=== PATIENT | female | born 1990 | race Caucasian/White ===

== ENCOUNTER 2020-11-23 08:20 | Emergency (ER) | payer OTHER, SELFPAY ==
--- NOTE | ~2020-11-23 | XR_ITS ---
EXAMINATION: XR finger 1st RT min 2V DATE: 11/23/2020 08:44 INDICATION: Posttraumatic pain and subungual hematoma to the right thumb TECHNIQUE: Dorsal palmar, lateral and 2 oblique views of the right first digit were obtained COMPARISON: None FINDINGS: Alignment is normal. No fracture. Joint spaces are normal. Soft tissues are unremarkable. IMPRESSION: 1. Negative right first digit radiographs. Reviewed, dictated and finalized at location A.
[2020-11-23 08:31] VITALS: BP 113/77; PULSE 100; RESP 16; TEMP 36.8; O2SAT 100
--- NOTE | 2020-11-23 09:16 | ED.UPPEXIN ---
HPI - Extremity Injury (Upper) General Chief Complaint: Extremity Injury, Upper Stated Complaint: Finger Injury Time Seen by Provider: 11/23/20 08:43 Source: patient and RN notes reviewed Mode of arrival: ambulatory Limitations: no limitations History of Present Illness HPI narrative: Patient presents today complaining of injury to the right forearm. 3 days ago she slammed her thumb in a car door. Reports some tingling to the tip of the finger. She currently rates her pain 7/10. She has attempted to drain the subungual hematoma on her found several times at home with varying success. Patient is currently breast-feeding MD complaint: injury to: right and finger Related Data Home Medications Medication Instructions Recorded Confirmed levonorgestrel [Mirena] 1 insert INTRAUTERINE ONCE 11/23/20 11/23/20 Allergies Allergy/AdvReac Type Severity Reaction Status Date / Time Penicillins Allergy Severe Anaphylactic Verified 11/23/20 08:58 Shock morphine AdvReac Intermediate Chills Verified 11/23/20 08:58 Review of Systems Review of Systems: CONSTITUTIONAL: Denies body aches, fever, chills, or sweats. EYES: Denies visual changes, redness, or discharge. ENT: Denies rhinorrhea, congestion, sore throat, or otalgia. CARDIOVASCULAR: Denies chest pain, palpitations, or edema. RESPIRATORY: Denies cough or dyspnea. GASTROINTESTINAL: Denies abdominal pain, nausea, vomiting, or diarrhea. GENITOURINARY: Denies dysuria or hematuria. SKIN: Denies rash, itching, or wounds. MUSCULOSKELETAL: Denies back pain, or myalgia. + Right thumb injury NEUROLOGIC: Denies headache, numbness, tingling, or weakness. PSYCH: Denies depression or anxiety. PMFSH Comments At time of signature, I have reviewed and agree with nursing past medical, surgical, social and family history unless otherwise noted. Please see nursing chart for further information. There is no relevant family history pertinent to the presenting complaint Exam Narrative: GENERAL: Well-appearing, well-nourished, and in no acute distress. HEAD: Normocephalic, atraumatic. EYES: EOMI. No redness or drainage. Conjunctivae normal. ENT: Mucous membranes pink and moist. NECK: Normal AROM. CHEST: No respiratory distress. EXTREMITIES: Right thumb: Tenderness to the IPJ extending distally. Subungual hematoma taking up most of the thumb nail. Some erythema and mild edema at the cuticle. Decreased range of motion of the IPJ due to pain. Distal sensation intact. Capillary refill normal. SKIN: Warm, dry, no rash. Capillary refill normal. Normal skin turgor. NEURO: No focal deficits. Alert and oriented x3. Gait steady. PSYCH: Normal affect. No signs of depression or anxiety. Course Vital Signs Vital signs: Vital Signs Temperature 98.2 F 11/23/20 08:31 Pulse Rate 100 11/23/20 08:31 Respiratory Rate 16 11/23/20 08:31 Blood Pressure 113/77 11/23/20 08:31 Pulse Oximetry 100 11/23/20 08:31 Temperature 98.2 F 11/23/20 08:31 Pulse Rate 100 11/23/20 08:31 Respiratory Rate 16 11/23/20 08:31 Blood Pressure 113/77 11/23/20 08:31 Pulse Oximetry 100 11/23/20 08:31 Reviewed Procedures Nail Trephination Nail Trephination #1: Nail Trephination Date: 11/23/20 Nail Trephination Time: 09:10 Time out: No Location (finger): right and thumb Sterile prep: chlorhexidine Method of drainage: nail cautery Procedure successful: Yes Patient tolerated procedure: well Nail Trephination Comment: Dressed with Band-Aid MDM - Extremity Injury (Upper) Differential Diagnosis Differential diagnosis: Likely other (Finger fracture, finger contusion, subungual hematoma) Imaging Data Radiologist's impression: ITS Impressions Finger X-Ray 11/23/20 08:47 IMPRESSION: 1. Negative right first digit radiographs. Critical Care Time Critical Care Time Critical Care Time: No Discharge Plan Discharge Cli
== END 2020-11-23 09:25 | disposition home or self-care (01) ==
PROVIDERS: Emergency Provider Nurse Practitioner
DX: S60.011A Contusion of right thumb without damage to nail, initial encounter (principal); W23.0XXA Caught, crushed, jammed, or pinched between moving objects, initial encounter
CPT/HCPCS: 11740; 73140; 99213; G0463

== ENCOUNTER 2021-06-04 14:45 | Emergency (ER) | payer OTHER, SELFPAY ==
[2021-06-04 14:49] VITALS: BP 114/61; PULSE 100; RESP 16; TEMP 36.8; O2SAT 99
[2021-06-04 14:59] VITALS: BP 114/61; PULSE 100; RESP 16; TEMP 36.8; O2SAT 99
--- NOTE | 2021-06-04 14:59 | ED.SKABFB ---
HPI - Skin/Abscess/Foreign Bdy General Chief complaint: Skin/Abscess/Foreign Body Stated complaint: mastitis Time Seen by Provider: 06/04/21 14:50 Source: patient and RN notes reviewed History of Present Illness HPI narrative: Patient is a 31-year-old female who presents the urgent care with complaints of right breast pain with red streaking. Patient states that she weaned her child off the breast approximately 10 days ago. Patient does not have any intentions on breast-feeding anymore. Patient states she has felt increased fatigue over the last day or so with symptoms starting approximately 3 days ago. Patient states that she has had clogged ducts before and was unable to work them out . Patient has taken Tylenol. Denies of any known fevers. No other acute complaints. No acute distress noted. Patient aware of the plan of care. Some parts of this dictation were generated by voice recognition software and may contain typographical and/or grammatical inaccuracies. Related Data Home Medications Medication Instructions Recorded Confirmed etonogestrel-ethinyl estradiol 1 vag ring VAGINAL DIRECTED 06/04/21 06/04/21 [EluRyng] Allergies Allergy/AdvReac Type Severity Reaction Status Date / Time Penicillins Allergy Severe Anaphylactic Verified 11/23/20 08:58 Shock morphine AdvReac Intermediate Chills Verified 11/23/20 08:58 Review of Systems Review of Systems: CONSTITUTIONAL: Denies fever, chills, or sweats. EYES: Denies visual changes, redness, or discharge. ENT: Denies rhinorrhea, congestion, sore throat, or otalgia. CARDIOVASCULAR: Denies chest pain, palpitations, or edema. RESPIRATORY: Denies cough or dyspnea. GASTROINTESTINAL: Denies abdominal pain, nausea, vomiting, or diarrhea. GENITOURINARY: Denies dysuria or hematuria. SKIN: Reports of redness and pain to the right breast MUSCULOSKELETAL: Denies back pain, joint pain, or myalgia. NEUROLOGIC: Denies headache, numbness, or weakness. All other systems reviewed are negative, except as documented in HPI. PMFSH Comments At the time of my signature, I reviewed and agree with the nursing past medical, surgical, social, and family history. There is no relevant family history pertinent to the patient complaint. Exam Narrative: GENERAL: This is a well-nourished, well-developed patient, in no apparent distress. HEAD: normocephalic, atraumatic. EYES: PERRL. Sclera clear/white. Vision is grossly intact. EARS: External ears normal NOSE: External nose normal with no obvious nasal discharge, nares without redness, no rhinorrhea. THROAT: Mucous membranes moist NECK: Neck supple CARDIOVASCULAR: Regular rate and rhythm without murmurs, gallops, or rubs. RESPIRATORY: Clear to auscultation. Breath sounds equal bilaterally. No wheezes, rales, or rhonchi. GASTROINTESTINAL: Abdomen soft, non-tender, nondistended. Bowel sounds are active. No hepato-splenomegaly, or palpable masses. No guarding. SKIN: 2 cm linear erythemic nonraised streaking of the right breast at approximately 3:00 BREAST: Mild to moderate tenderness between 3:00 and 6:00 of the right breast without notable nodule NEURO: awake, alert, and oriented to person, place and time. There were no obvious focal neurologic abnormalities. EXTREMITIES: No clubbing, cyanosis, or edema. Course Course Level of Care: Express Care Visit Vital Signs Vital signs: Vital Signs Temperature 98.3 F 06/04/21 14:49 Pulse Rate 100 06/04/21 14:49 Respiratory Rate 16 06/04/21 14:49 Blood Pressure 114/61 06/04/21 14:49 Pulse Oximetry 99 06/04/21 14:49 Temperature 98.3 F 06/04/21 14:59 Pulse Rate 100 06/04/21 14:59 Respiratory Rate 16 06/04/21 14:59 Blood Pressure 114/61 06/04/21 14:59 Pulse Oximetry 99 06/04/21 14:59 Reviewed MDM - Skin/Abscess/Foreign Bdy MDM Narrative Medical decision making narrative: Advised patient to continue manipulation of the breast and warm compress/ice packs intermi
== END 2021-06-04 15:34 | disposition home or self-care (01) ==
PROVIDERS: Emergency Provider Nurse Practitioner Family
DX: N64.4 Mastodynia (principal)
CPT/HCPCS: 99213; G0463

== ENCOUNTER 2021-08-23 10:19 | Emergency (ER) | payer OTHER, SELFPAY ==
--- NOTE | 2021-08-23 10:24 | ED.HEATRA ---
HPI - Head Injury General Stated complaint: Head bump Time Seen by Provider: 08/23/21 10:37 Source: patient Mode of arrival: ambulatory Limitations: no limitations History of Present Illness HPI Narrative: 31-year-old female presents with concern for head injury. 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 She reports she has a bruise to her right forehead and to her right elbow. She denies any loss of consciousness. Denies vomiting. She reports she had some slight nausea and headache. She reports however she did have a headache this morning. Complaint: head injury Related Data Home Medications Medication Instructions Recorded Confirmed No Home Medications 08/23/21 08/23/21 Allergies Allergy/AdvReac Type Severity Reaction Status Date / Time Penicillins Allergy Severe Anaphylactic Verified 11/23/20 08:58 Shock morphine AdvReac Intermediate Chills Verified 11/23/20 08:58 Review of Systems Review of Systems: CONSTITUTIONAL: Denies malaise, chills, sweats, or fever. EYES: Denies visual changes GASTROINTESTINAL: Reports mild nausea. Denies vomiting SKIN: Reports bruising to the right forehead and right elbow MUSCULOSKELETAL: Denies muscle skeletal pain NEUROLOGIC: Denies numbness, weakness, or headache. All systems reviewed & are unremarkable except as noted in HPI and below PMFSH Comments At time of signature, agree with nursing past medical, surgical, social and family history. There is no relevant family history pertinent to the presenting complaint Exam Narrative: GENERAL: Well-appearing, well-nourished, and in no acute distress. HEAD: Normocephalic, no sign of open or depressed skull fracture, no sign of basilar skull fracture/raccoon eyes or rader signs. EYES: PERRLA, sclera clear, and EOMI. No nystagmus. ENT: Nares clear. Mucous membranes moist. TM pearly oreilly with sharp light reflex bilaterally; no tragal tenderness. No otorrhea or rhinorrhea noted NECK: Supple. CHEST: No respiratory distress. Speaks in full sentences. HEART: Regular rate and rhythm. EXTREMITIES: Right upper extremity has grossly normal range of motion, no edema noted. SKIN: Warm, dry, no visible rash. Ecchymosis noted to the right elbow, small hematoma noted to the right forehead NEURO: Alert and oriented x3. No focal deficits. Cranial nerves II through XII grossly intact PSYCH: Normal mood and affect Course Course Emergency Course: Patient is aware of diagnosis, understands and agrees to treatment plan. Anticipatory guidance given. Patient agrees to follow-up as directed and is aware of reasons to seek care at the emergency department. Portions of this record may have been created with voice recognition software Level of Care: Express Care Visit Vital Signs Vital signs: Reviewed. MDM - Head Injury MDM Narrative Medical decision making narrative: CCHR score: Signs of open or depressed skull fracture: No Rader sign/raccoon eyes: No 2 or more episodes of vomiting: No Age 65 years +: No Amnesia for events occurring 30 minutes prior to trauma: No Dangerous mechanism of injury: No Exam findings show no acute concerns; patient is alert and oriented with normal neurological exam. Patient given reasons to go to the emergency department. Patient is appropriate for outpatient treatment and follow-up. Critical Care Time Critical Care Time Critical Care Time: No Discharge Plan Discharge Clinical Impression: Closed head injury Patient Disposition: Home, Self-Care Condition: Stable Instructions: Head Injury (ED) Additional Instructions: Follow up with your primary care doctor within 48-72 hours. Rest. Take Acetaminophen (Tylenol) every 4-6 hours, as needed, for pain. Often individuals develop a headache associated with nausea in the days/hours after a head injury. This is called a concussion
[2021-08-23 10:27] VITALS: BP 118/87; PULSE 87; RESP 16; TEMP 36.6; O2SAT 100
== END 2021-08-23 10:51 | disposition home or self-care (01) ==
PROVIDERS: Emergency Provider Nurse Practitioner; PCP Internal Medicine
DX: S09.90XA Unspecified injury of head, initial encounter (principal); W22.8XXA Striking against or struck by other objects, initial encounter; Y99.0 Civilian activity done for income or pay
CPT/HCPCS: 99213; G0463

== ENCOUNTER 2021-09-16 14:43 | Emergency (ER) | payer OTHER, SELFPAY ==
[2021-09-16 14:52] VITALS: BP 117/77; PULSE 95; RESP 16; TEMP 36.7; O2SAT 100
--- NOTE | 2021-09-16 15:44 | ED.GENADULT ---
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 She reports that she has this discharge from he nipple usually the week before her menses and has noted it the past few days and wants a culture sent of discharge. Patient has had mammogram and ultrasound which she reports are negative. Has inversion of nipple on right breast, has had small cyst excision right breast years ago. MD complaint: nipple discharge Onset (ago): month(s) (2) Location: chest (right breast) Severity scale (1-10): 3 Quality: aching Pain Consistency: intermittent Treatments prior to arrival: other (has had right breat mammogram and ultrasound) Related Data Home Medications Medication Instructions Recorded Confirmed etonogestrel 0.12 mg-ethinyl vag ring vaginal 09/16/21 estradiol 0.015 mg/24 hr vaginal ring ([facility]) Allergies Allergy/AdvReac Type Severity Reaction Status Date / Time Penicillins Allergy Severe Anaphylactic Verified 09/16/21 15:24 Shock morphine AdvReac Intermediate Chills Verified 09/16/21 15:24 Review of Systems Review of Systems: CONSTITUTIONAL: Denies fever, chills, or sweats. EYES: Denies visual changes, redness, or discharge. ENT: Denies rhinorrhea, congestion, sore throat, or otalgia. CARDIOVASCULAR: Denies chest pain, palpitations, or edema. RESPIRATORY: Denies cough or dyspnea. GASTROINTESTINAL: Denies abdominal pain, nausea, vomiting, or diarrhea. GENITOURINARY: Denies dysuria or hematuria. SKIN: Denies rash or itching.positive for some drainage noted from right nipple MUSCULOSKELETAL: Denies back pain, joint pain, or myalgia. NEUROLOGIC: Denies headache, numbness, or weakness. PSYCHIATRIC: Denies anxiety or depression. All systems reviewed & are unremarkable except as noted in HPI and below [facility] Past Medical History Medical History (Updated 09/17/21 @ 21:02 by Tiesha Carvalho NP) Cyst, breast solitary outside of breast next to nipple Surgical History Surgical History (Updated 09/17/21 @ 21:05 by Tiesha Carvalho NP) History of dilatation and curettage History of nasal surgery Turbinectomy History of tonsillectomy and adenoidectomy Social History Social History (Updated 09/17/21 @ 21:02 by Tiesha Carvalho NP) Smoking status: Never smoker Alcohol intake: current Alcohol use details: rare social Substance use: never Substance use type: does not use Living arrangements: with family Gender identity (if verbalized by the patient): Female Comments At time of signature, agree with nursing past medical, surgical, social and family history. There is no relevant family history pertinent to the presenting complaint Exam Narrative: GENERAL: Well-appearing, well-nourished, and in no acute distress. HEAD: Normocephalic, atraumatic. EYES: PERRLA and EOMI. ENT: Nares clear, no rhinorrhea or epistaxis. Mucous membranes moist.TM's normal with good light reflex, throat pink with no lesions no tonsils present NECK: Supple.no lymphadenopathy CHEST: Clear to auscultation. No respiratory distress.SAO2 100% on room air HEART: Regular rate and rhythm. No murmur heard. Normal peripheral pulses. ABDOMEN: Soft, nontender, nondistended, normal active bowel sounds. EXTREMITIES: Normal range of motion. No edema. SKIN: Warm, dry, no rash. drainage noted from right breast culture obtained and sent for analysis, breast is soft but palpable fibrous tissue, nipple is inverted, no redness or warmt
== END 2021-09-16 16:10 | disposition home or self-care (01) ==
PROVIDERS: Emergency Provider Registered Nurse; PCP Internal Medicine
DX: N64.52 Nipple discharge (principal)
CPT/HCPCS: 87070; 87205; 99213; G0463

== ENCOUNTER 2023-09-15 14:42 | Emergency (ER) | payer OTHER, SELFPAY ==
[2023-09-15 15:00] VITALS: BP 123/80; PULSE 84; RESP 18; TEMP 37; O2SAT 100
--- NOTE | 2023-09-15 15:45 | ED.SKABFB ---
HPI - Skin/Abscess/Foreign Bdy General Chief complaint: Skin/Abscess/Foreign Body Stated complaint: insect bite w/red ring back of left thigh Time Seen by Provider: 09/15/23 15:30 Source: patient, RN notes reviewed and old records reviewed Mode of arrival: ambulatory Limitations: no limitations History of Present Illness HPI narrative: 33 year old female who presents to [facility] with complaints of having a insect bite to her left upper thigh with noted ring around center redness. Patient reports that she noted some itching to her left upper posterior thigh Thursday evening and then she noted red bite with surrounding ring around lesion and she has noted also that she has left groin lymph node swelling and tender also. MD complaint: insect bite/sting (with surrounding ring) Onset (ago): day(s) (3) Location: LLE (posterior thigh) Severity scale (1-10): 3 Treatments prior to arrival: none Related Data Allergies Allergy/AdvReac Type Severity Reaction Status Date / Time Penicillins Allergy Severe Anaphylactic Verified 09/16/21 15:24 Shock nickel Allergy Unknown Verified 09/15/23 15:02 morphine AdvReac Intermediate Chills Verified 09/16/21 15:24 Review of Systems Review of Systems: CONSTITUTIONAL: Denies fever, chills, or sweats. CARDIOVASCULAR: Denies chest pain, palpitations, or edema. RESPIRATORY: Denies cough or dyspnea. SKIN: Reports bite to posterior left thigh with surrounding primer press operator colored ring, inflamed tender left groin lymph node MUSCULOSKELETAL: Denies joint pain or myalgia. NEUROLOGIC: Denies headache, numbness, or weakness. All systems reviewed & are unremarkable except as noted in HPI and below PMFSH Past Medical History Medical History Cyst, breast solitary outside of breast next to nipple Surgical History Surgical History History of dilatation and curettage History of nasal surgery Turbinectomy History of tonsillectomy and adenoidectomy Social History Social History Smoking status: Never smoker Alcohol intake: current Alcohol use details: rare social Substance use: never Substance use type: does not use Living arrangements: with family Gender identity (if verbalized by the patient): Female Comments At time of signature, agree with nursing past medical, surgical, social and family history. There is no relevant family history pertinent to the presenting complaint Exam Narrative: GENERAL: Well-appearing, well-nourished, and in no acute distress. HEAD: Normocephalic, atraumatic. EYES: PERRLA, conjunctivae clear, and EOMI. ENT: Mucous membranes moist. Oropharynx without edema, erythema or lesions. NECK: Supple. No lymphadenopathy, left groin swollen tender lymph node CHEST: Clear to auscultation. No respiratory distress. HEART: Regular rate and rhythm. SKIN: Warm, dry.? circular red raised center lesion 0.5 cm diameter with 2cm primer press operator pinkish circular surrounding lesion, no drainage or any acute warmth of area. NEURO:? Alert and oriented x3. PSYCH: Normal mood and affect Course Course Emergency Course: Patient is aware of diagnosis, understands and agrees to treatment plan.? Anticipatory guidance given.? Patient agrees to follow-up as directed and is aware of reasons to seek care at the emergency department. Portions of this record may have been created with voice recognition software Level of Care: Express Care Visit Vital Signs Vital signs: Vital Signs Temperature 37.0 C 09/15/23 15:00 Pulse Rate 84 09/15/23 15:00 Respiratory Rate 18 09/15/23 15:00 Blood Pressure 123/80 09/15/23 15:00 Pulse Oximetry 100 09/15/23 15:00 Temperature 37.0 C 09/15/23 15:00 Pulse Rate 84 09/15/23 15:00 Respiratory Rate 18 09/15/23 15:00 Blood Pressure 123/80 0
== END 2023-09-15 16:08 | disposition home or self-care (01) ==
PROVIDERS: Emergency Provider Registered Nurse; PCP Internal Medicine
DX: S70.362A Insect bite (nonvenomous), left thigh, initial encounter (principal); W57.XXXA Bitten or stung by nonvenomous insect and other nonvenomous arthropods, initial encounter; R59.9 Enlarged lymph nodes, unspecified
CPT/HCPCS: 99213; G0463

== ENCOUNTER 2024-01-21 09:44 | Emergency (ER) | payer OTHER, SELFPAY ==
--- OUTSIDE RECORDS SUMMARY | 2024-01-21 09:46 | XMS_ITS ---
Author Organization [facility] Address [address] [place] [address] Care Team Providers Care Imaging Scheduler Name Role Phone Jimmie Ardian Primary Care Provider Bautista See Unavailable [phone] Allergies Allergen (clinical drug ingredient) Drug/Non Drug Allergy documented on EMR Reaction Allergy Type Onset Date Status morphine Morphine hives Drug Allergy Active Penicillin anaphylaxis Drug Allergy Acti ve REASON FOR VISIT Recurrent nausea, cramping, and diarrhea after with ingestion of milk consistently after tick bite.Has tried lactose-free products without benefit. Noted similar issues with ingestion of mammalian meats. Recent alpha-gal and milk IgE level was elevated., [facility] follow-up; continues allergy avoidance,on meds, and considering SCIT, Reported lip swelling after ingestion of PCN at 6 months. Has avoided since. Medications Medication SIG (Take, Route, Frequency, Duration) Notes Start Date End Date Status Nasal Washes N/A as directed intranasally Active Fluticasone Propionate 50 MCG/ACT 2 sprays in each nostril Nasally Twice a day for 30 days Active Cetirizine HCl 10 MG 1 tablet Orally Onc e a day for 30 days Active Auvi-Q 0.3 MG/0.3ML as directed Injectio n as needed for 30 days Active Social History Tobacco Use: Social History Observation Description Date Details (start date - stop date) Former Smoker NA - NA Tobacco Control (Standard) Question Answer Notes Tobacco use: Former smoker Vital Signs Blood pressure systolic 126 mm Hg 11/09/19 24 Blood pressure diastolic 82 mm Hg 09/30/2 024 Height 60 in 11/09/2023 Weight 125.6 lbs 11/09/2023 BMI 24.53 kg/m2 11/09/2023 Oximetry 100 % 11/09/2023 Encounters Encounter Location Date Provider Diagnosis [facility] [address] [place] [address] 11/09/2023 Bautista Campbell Allergic rhinitis du e to pollen J30.1 ; 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 Accordingly, we have introduced a new, aggressive medication regimen, discussed nasal washes and allergy-specific avoidance measures. We also discussed adjunctive therapies including subcutaneous, specific allergen immunotherapy as relates to the treatment and prevention of atopic disease. She is currently considering the risks, benefits and alternatives to this care. Risks: bleeding, infection, allergic reaction, anaphylaxis; Benefits: reduced need for medications, improved symptoms, disease modification. Alternatives: watch/wait, change medication regimen, improve allergy avoidance measures. 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 She reports occasional flat, red itchy spots that correlate on days of eating mammalian meats, but otherwise without other signs of systemic symptoms. Recent alpha-gal panel with PCP elevated at 0.4. Given consistent issues with milk and elevated alpha-gal level, at initial visit was performed to milk, beef, pork, and chapa showing only borderline + to pork. ImmunoCAP still with elevated IgE to alpha gal along with beef and milk. History is not completely typical with what I would expect with alpha-gal given GI symptoms typically occur within an hour of ingestion as opposed to 2-6 hours after. Regardless. I advised continued absolute avoidance of dairy products and all mammalian meats moving forward. Has been attempting thus far with improvement. That said, she will still have breakthrough reactions with sinus congestion and abdominal pain. No obvious mammalian exposure though unclear in terms of cross contamination, I highly advised keeping a journal of symptoms along with times and what she ate to assess for any other potential aspect to this. Keep f/u with GI. Keep AIE on hand at all times. FAP reviewed. Return in 6 months for E&M 11/09/2023 Allergic rhinitis due to animal (cat) (dog) hair and dander (ICD-10 - J30.81) Follow allergen avoidance, meds and consider SCIT as an adjunctive treatment to current regimen 11/09/2023 Other allergic rhinitis (ICD-10 - J30.89) Follow allergen avoidance, meds and consider SCIT as an adjunctive treatment to current regimen 11/09/2023 Other chronic allergic conjunctivitis (ICD-10 - H10.45) Given ocular signs and symptoms I encouraged allergy avoidance measures and meds as above. If symptoms persist, consider adding additional medications including intraocular antihistamine/mas t cell stabilizer, PRN and consider SCIT as an adjunctive measure 11/09/2023 Allergy status to penicillin (ICD-10 - Z88.0) Reports lips turning blue after taking PCN at 6 months old[facility]. She has avoided PCN. Would advise PCN. Otherwise continue absolute avoidance Plan Of Treatment Medication Medication Name Sig Start Date Stop Date Notes Nasal Washes N/A as directed intranasally Fluticasone Propionate 50 MCG/ACT 2 sprays in each nostril Nasally Twice a day for 30 days Cetirizine HCl 10 MG 1 tablet Orally Onc e a day for 30 days Auvi-Q 0.3 MG/0.3ML as directed Injectio n as needed for 30 days Treatment Notes Assessment Notes Allergic rhinitis due to pollen Nika lowe suffers from atopic disease based upon our skin testing and clinical history. Accordingly, we have introduced a new, aggressive medication regimen, discussed nasal washes and allergy-specific avoidance measures. We also discussed adjunctive therapies including subcutaneous, specific allergen immunotherapy as relates to the treatment and prevention of atopic disease. She is currently considering the risks, benefits and alternatives to this care. Risks: bleeding, infection, allergic reaction, anaphylaxis; Benefits: reduced need for medications, improved symptoms, disease modification. Alternatives: watch/wait, change medication regimen, improve allergy avoidance measures. 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 She reports occasional flat, red itchy spots that correlate on days of eating mammalian meats, but otherwise without other signs of systemic symptoms. Recent alpha-gal panel with PCP elevated at 0.4. Given consistent issues with milk and elevated alpha-gal level, at initial visit was performed to milk, beef, pork, and chapa showing only borderline + to pork. ImmunoCAP still with elevated IgE to alpha gal along with beef and milk. History is not completely typical with what I would expect with alpha-gal given GI symptoms typically occur within an hour of ingestion as opposed to 2-6 hours after. Regardless. I advised continued absolute avoidance of dairy products and all mammalian meats moving forward. Has been attempting thus far with improvement. That said, she will still have breakthrough reactions with sinus congestion and abdominal pain. No obvious mammalian exposure though unclear in terms of cross contamination, I highly advised keeping a journal of symptoms along with times and what she ate to assess for any other potential aspect to this. Keep f/u with GI. Keep AIE on hand at all times. FAP reviewed. Return in 6 months for E&M Allergic rhinitis due to ani mal (cat) (dog) hair and dander Follow allergen avoidance, meds and consider SCIT as an adjunctive treatment to current regimen Other allergic rhinitis Follow allergen avoidance, meds and consider SCIT as an adjunctive treatment to current regimen Other chronic allergic conjunctivitis Gi sal ocular signs and symptoms I encouraged allergy avoidance measures and meds as above. If symptoms persist, consider adding additional medications including intraocular antihistamine/mast cell stabilizer, PRN and consider SCIT as an adjunctive measure Allergy status to penicillin Reports li ps turning blue after taking PCN at 6 months old[facility] details. She has avoided PCN. Would advise PCN. Otherwise continue absolute avoidance Next Appt Details Follow Up: 4 Weeks, Reason: Evaluation and Management Provider Name:Bautista jewell, 05/03/2024 04:15:00 PM, [address], [address], [place], [address], Procedure Notes * Category Sub-Category Detail Notes Time (Provider Encounter) Time Attestation This follow-up encounter took more than:: more than 30 minutes (34135) Tasks performed during this encounter include:: taking a history, reviewing the patient's review of systems, performing the physical examnation, reviewing laboratory results, counseling the patient on their diagnoses and chronic management, counseling on chronic precription medication management, discussed risks, benefits and alternatives to care, documenting in the EHR, This time calculation excludes any time associated with the separately identifiable medical procedures performed/described within this note (e.g. spirometry/flow volume loop, injections, skin testing, etc...) Progress Notes * Nika ROSEDOB:1990 ([age] yo F)Acc No.[id number]:11/09/2023 Progress Notes Patient:Nika CARPENTER Provider:?Bautista Campbell PA-C :1990???Age:33 Y???Sex:Female D ate:11/09/2023 Address:[address] [place] [address] [id number] Pcp:Jimmie Adrian Subjective: * Chief Complaints: * ???Recurrent nausea, crampin g, and diarrhea after with ingestion of milk consistently after tick bite. Has tried lactose-free products without benefit. Noted similar issues with ingestion of mammalian meats. Recent alpha-gal and milk IgE level was elevated.[facility] follow-up; continues allergy avoidance, on meds, and considering SCITReported lip swelling after ingestion of PCN at 6 months. Has avoided since. * HPI: ???*Introduction:?I had the pleasure of seeing?Nika Rose, a 33 y/o female with history of alpha-gal returning for interval evaluation and management. She is alone for today's visit. She reports being bit by something 9 years ago resulting in treatment with abx. There was an enlarged lymph node in her groin x 11 months resulting in surgery and pathology showing due to insect. Almost immediately after this bite, she started to have increased nausea, diarrhea, and abdominal cramping with ingestion of dairy products. Tried to switch to lactose-free products without relief. Symports would occur generally less than an hour. This would occur every time with ingestion. That said, she has been 6 times, reporting lack of symptoms at these times. She will also report increased itchiness and GI symptoms with beef and pork. She is able to tolerate chicken and fish with minimal issue. At this point, not absolutely avoiding mammalian meats. She has never had a reaction to the point where she needed AIE which she does not carry. She will get itchy spots that do not raise. This has not occurred outside to setting of avoidance of red meats. She reports recent tick bite occurring approx early September. She has had [facility] food sensitivity testing though is not actively avoiding foods. Since last visit, she has obtained repeat alpha gal panel with similar elevation. Also noted were elevated IgE to beef and milk. Now avoiding memalian meats and products with some reproted relief. Still with reproted reactions with increased sinus congestion and abdominal pain without clear ingestion of mammalian products - unclear if cross contamination is occuring.?Aeroallergen skin testing was completed at first visit, and was positive to multiple seasonal and perennial allergens?She reports recurrent sinus congestion, runny nose, and PND. She has had prior sinus surgery in the past.Treating with?Zyrtec and Flonase?with some benefit. She has 2 dogs at home with noted increased itchy skin around them. Also notes symptoms worsen around dogs. Her dad has a strong history of seasonal allergies. She also reports taking PCN at 6 months old for war infection. Her lips started to turn blue. She was taken to ED. History otherwise unclear. She has avoided since.?Today, she reports no fevers, chills, night sweats or other constitutional symptoms.? * ROS:?ALLERGY:?runny nose?Yes.?scratchy throat?No.?itchy eyes?Yes.?ear fullness?No.?sinus congestion?Yes.?Positive?per the HPI and history, otherwise unremarkable.?SPECIAL SENSES:?Positve for?none.?cataracts?No.?glaucoma?No.?loss of hearing?No.?itching in ears?No.?ringing in ears?No.?loss of balance?No.?loss of smell?No.?dry eyes?Yes.?excessive tearing?No.?itching eyes?Yes.?loss of taste?No.?conjunctivitis?No.?ear infections?No.?CONSTITUTIONAL:?weight gain?Yes.?loss of appetite?Yes.?fever?No.?weakness?Yes.?weight loss?Yes.?fatigue?Yes.?night sweats?No.?Positive for?none.?ENT:?cold?No.?cough?No.?epistaxis?No.?hearing loss?No.?change in voice?No.?sore throat?Yes.?ringing in ears?No.?sinus pain?No.?Positive?per the HPI and history, otherwise unremarkable.?RESPIRATORY:?shortness of breath?No.?chest pain?No.?chest congestion?No.?cough?No.?Positive?per the HPI and history, otherwise unremakable.?OPHTHALMOLOGY:?diminished vision?No.?eye irritation?Yes.?drainage from eyes?No.?blurring of vision?No.?seasonal eye sx?Yes.?Positive for?per the HPI and history, otherwise unremarkable.?itching?Yes.?sensitivity to light?Yes.?discharge?No.?watering?Yes.?swelling of the eyelids?No.?redness?Yes.?ENDOCRINOLOGY:?fatigue?Yes.?polydipsia?No.?polyuria?No.?weight loss?Yes.?sleep disturbance?No.?cold intolerance?Yes.?heat intolerance?No.?diabetes?No.?Positive for?none.?CARDIOLOGY:?chest pain?No.?palpitations?No.?leg edema?No.?dizziness?No.?shortness of breath?No.?Positive for?none.?GASTROENTEROLOGY:?dysphagia?No.?abdominal pain?Yes.?nausea?Yes.?vomiting?No.?constipation?Yes.?diarrhea?Yes.?blood in stool?No.?indigestion?No.?hemorrhoids?Yes.?Positive for?none.?UROLOGY:?difficulty urinating?No.?blood in urine?No.?frequent urination?No.?urinary incontinence?No.?recurrent UTI?No.?Positive for?none.?DERMATOLOGY:?rash?Yes.?mole?Yes.?lumps?No.?dry or sensitive skin?Yes.?hives (urticaria)?Yes.?skin cancer?No.?Positive for?per the HPI and history, otherwise unremakable.?NEUROLOGY:?headache?Yes.?tingling numbness?No.?seizures?No.?insomnia?No.?memory loss?No.?dizziness?No.?gait abnormality?No.?Positive for?none.?HEMATOLOGY/LYMPH:?Positive for?none.?MUSCULOSKELETAL:?joint swelling?No.?joint pain?Yes.?leg cramps?No.?joint stiffness?Yes.?sciatica?No.?osteoporosis?No.?fracture?No.?carpal tunnel?No.?gout?No.?Positive for?none.?PSYCHOLOGY:?high stress level?Yes.?depression?No.?sleep disturbances?No.?suicidal ideation?No.?eating disorder?No.?mental or physical abuse?No.?anxiety?Yes.?Positive for?none.?FEMALE REPRODUCTIVE:?heavy periods?No.?hot flashes?No.?abnormal vaginal discharge?No.?sexually active?Yes.?infertility?No.?frequent yeat infections?No.?pelvic pain?Yes.?breast pain?No.?nipple discharge No.?Are you ??No.?Are you planning on a future pregancy??No.?All other review of systems per the HPI and history, otherwise unremarkable. * Medical History:? * Surgical History:?Tonsillect chidi 1992adenoidectomy 1992,1998,2008lymph node removal 2016D & C 2019,2021,2023tubal ligation [id number] 2024 * Hospitalization/Major Diagno stic Procedure:?No Hospitalization History. * Family History:?Father: Yes. ?Mother: Yes.?Paternal Grand Father: Yes.?Paternal Grand Mother: No.?Maternal Grand Father: Yes.?Maternal Grand Mother: Yes.?Siblings: Yes.?Children: Yes.? * Social History:?Marital Status?What is your marital status?Alcohol Screening?Do you ever drink alcoholic beverages??Yes ?Number of drinks per occasion:?2 ?Frequency??Every other month ???Smoking?Have you ever smoked tobacco:?former smoker ?Additional Findings: Tobacco Non-User?Ex-moderate cigarette smoker (10- 19/day) ?How old were you when you started smoking??16 ?How old were you when you quit smoking??25 ?How many cigarettes a day did you smoke??less than 5 ?Are you a :?former smoker ???Recreational drug use?Have you ever used recreational drugs??Yes ?What kind of drugs??marijuana ???Details on consumption of certain products?Do you regularly consume products with aspartame; Equal or NutraSweet??No ?Do you regularly consume products with artificial coloring??Yes ?Have you ever noticed worsening of your rash with these food items??No ???Exercise?What kind(s) of exercise do you perform regularly??walking,age-appropriate participation in physical activites ?How often do you perform this exercise??every other day ???Are any of the following personal care products containing fragrance, dye or preservatives used regularly?Shampoo:?No ?Conditioner:?No ?Soap:?Yes ?Laundry Detergent:?Yes ?Fabric Softener:?Yes ?Deodorant:?Yes ?Perfume, cologne, after shave:?Yes ?Air freshners or other scented products:?Yes ?Hair coloring dyes or rinses:?No ?Other:?No ???Occupation?Are you currenly employed??Yes ?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 number of years?9 ?Do you believe that your current or previous occupation has any bearing on your illness??Yes ?Do you have any pending or planned legal action against your current or former employer which pertains to your medical illness??No ?Do you anticipate that your evaluation will be used in any legal action against your current employer or former employer??No ?Have you had any job with high exposure to fumes, chemicals, dust or other noxious substances??No ?Are you currently a student??No ???Environmental History?Living environment:?private home ?Where is the home located[place],near any major factories or industries ?Age of home:?7 ?How long have you lived there??5 years or more ?How many people live in the home??4 ???Home description?Basement:?Yes ?Any water damage in basement??No ?Smokers in the home??No ?Smokers outside the home??No ?Air Conditioning??Yes ?Central Air??Yes ?Forced air heating??Yes ?Gas or electric??electric ?Fireplace??No ?Wood burning stove??No ?Do you vacuum the home??Yes ?Air purification systems??No ?Pillow and mattress dust-proof encasings??No ?Do you use a humidifier??No ?Do you own any pets??Yes ?What kind(s)? (click all that apply)?dog ?Where do your pets sleep??anywhere in the house ?Fabric softeners used??Yes ?Plants in the home??Yes ?How many??3 ?Where are they kept??kitchen,other room in home ?Is there carpeting in your bedroom??No ?Do you have [id number] carpeting??No ?What is the age of your mattress (years)??1 ?What material(s) are used to manufacture your bedding and pillow??natural fiber (e.g. cotton),other ?What is the age of your pillow (years)??1 ?What material are your bedding items made of??synthetic,natural fiber (e.g. cotton) ?Do you sleep with quilts or blankets or a duvet??Yes ?What material??natural fiber (e.g. cotton) ?How many dogs??2 ???Tobacco Control (Standard)?Tobacco use:?Former smoker * Medications:?TakingAuvi-Q 0. 3 MG/0.3ML Solution Auto-injector as directed Injection as needed Cetirizine HCl 10 MG Tablet 1 tablet Orally Once a day Fluticasone Propionate 50 MCG/ACT Suspension 2 sprays in each nostril Nasally Twice a day Nasal Washes N/A 1 quart of sterilized tap water or distilled water, 1 tsp NaCl, 1 pinch of baking soda as directed intranasally Medication List reviewed and reconciled with the patientTaking Auvi-Q 0.3 MG/0.3ML Solution Auto-injector as directed Injection as needed Taking Cetirizine HCl 10 MG Tablet 1 tablet Orally Once a day Taking Fluticasone Propionate 50 MCG/ACT Suspension 2 sprays in each nostril Nasally Twice a day Taking Nasal Washes N/A 1 quart of sterilized tap water or distilled water, 1 tsp NaCl, 1 pinch of baking soda as directed intranasally Medication List reviewed and reconciled with the patient * Allergies:?Penicillin: anaph ylaxisMorphine: hivesno[Allergies Verified] Objective: * Vitals:?BP:126/82mm Hg, HR:7 7/min, Pulse Oximetry:100%, Ht: 60 in, Wt: 125.6 lbs, BMI:24.53Index. * Examination: ???General examination: ?General appearance:?pleasant, well-developed, well-nourished.?HEENT:?pupils equal, round, and reactive to light and accommodation, conjunctiva are injected bilaterally, no tenderness to palpation of the sinuses, TM's without evidence of acute infection, turbinates 2+ swollen and pale inferiorly bilaterally, clear rhinorrhea is present, no polyps noted, no septal perforation, posterior oropharynx is erythematous and cobblestoning is present, erythema on pharyngeal wall, no exudates, no tongue swelling, and uvula is midline.?Oral cavity:?normal, no lesions.?Neck, thyroid :?supple, non-tender, no anterior cervical lymphadenopathy.?Breasts :?not performed.?Heart:?RRR, S1-S2, no murmurs, no rubs, no gallops.?Lungs:?clear to auscultation and percussion in all lung noel, no wheezes or crackles.?Abdomen:?soft, NT/ND, normal active bowel sounds.?Neurologic exam:?unremarkable.?Skin:?normal, no rash, dermatographism, urticaria, angioedema.?Peripheral pulses:?normal (2+) bilaterally.?Back:?normal.?Extremities:?normal ROM, no clubbing, no cyanosis, no edema.?Genitalia:?not performed.? Assessment: * Assessment: 1.?Allergy to mammalian meat s - Z91.014 (Primary)???2.?Allergic rhinitis due to pollen - J30.1???3.?Allergic rhinitis due to animal (cat) (dog) hair and dander - J30.81???4.?Other allergic rhinitis - J30.89???5.?Other chronic allergic conjunctivitis - H10.45???6.?Allergy status to penicillin - Z88.0??? Plan: * Treatment: 2.?Allergic rhinitis due to pollen? Continue Cetirizine HCl Tablet, 10 MG, 1 tablet, Orally, Once a day, 30 days, 30, Refills 0;?Continue Fluticasone Propionate Suspension, 50 MCG/ACT, 2 sprays in each nostril, Nasally, Twice a day, 30 days, 1, Refills 0;?Continue Nasal Washes 1 quart of sterilized tap water or distilled water, 1 tsp NaCl, 1 pinch of baking soda, N/A, as directed, intranasally.?? Notes: Nika clearly suffers from atopic disease based upon our skin testing and clinical history. Accordingly, we have introduced a new, aggressive medication regimen, discussed nasal washes and allergy-specific avoidance measures. We also discussed adjunctive therapies including subcutaneous, specific allergen immunotherapy as relates to the treatment and prevention of atopic disease. She is currently considering the risks, benefits and alternatives to this care. Risks: bleeding, infection, allergic reaction, anaphylaxis; Benefits: reduced need for medications, improved symptoms, disease modification. Alternatives: watch/wait, change medication regimen, improve allergy avoidance measures. ?? 3.?Allergic rhinitis due to animal (cat) (dog) hair and dander? Notes: Follow allergen avoidance, meds and consider SCIT as an adjunctive treatment to current regimen?? 4.?Other allergic rhinitis? Notes: Follow allergen avoidance, meds and consider SCIT as an adjunctive treatment to current regimen?? 5.?Other chronic allergic co njunctivitis? Notes: Given ocular signs and symptoms I encouraged allergy avoidance measures and meds as above. If symptoms persist, consider adding additional medications including intraocular antihistamine/mast cell stabilizer, PRN and consider SCIT as an adjunctive measure?? 6.?Allergy status to penicil juan? Notes: Reports lips turning blue after taking PCN at 6 months old[facility]. She has avoided PCN. Would advise PCN. Otherwise continue absolute avoidance?? * Procedures:?Time (Provider Encounter):?Time Attestation ?This follow-up encounter took more than:?more than 30 minutes (36080) ?Tasks performed during this encounter include:?taking a history, reviewing the patient's review of systems, performing the physical examnation, reviewing laboratory results, counseling the patient on their diagnoses and chronic management, counseling on chronic precription medication management, discussed risks, benefits and alternatives to care, documenting in the EHR, This time calculation excludes any time associated with the separately identifiable medical procedures performed/described within this note (e.g. spirometry/flow volume loop, injections, skin testing, etc...)? * Procedure Codes:?G8427 [facility] M EDS VERIFIED W/PT OR [id number] Derick Adrian - Incident-to * Preventive Medicine:? ??Counseling:?Diet?Continue food avoidance:milk, mammalian meats.?Medication instruction:?Watch for side effects of prescribed medications, Nasal steroid/antihistamine instruction: avoid septum.?Education:?GENERAL EDUCATION: Our staff spent an additional 30 minutes in direct contact with the patient educating them on their current diagnoses and proper treatment and prevention of symptoms and the proper use of medications.?Education 2:?ARC EDUCATION: Our staff discussed the appropriate allergen avoidance measures and medication utilization including upper airway hygiene with daily nasal washes given the patient's clinical status and diagnoses. SCIT EDUCATION: Discussed allergy immunotherapy including the relative risks, benefits and alternatives to this treatment as an adjunctive measure to current therapy, Allergy Immunotherapy: Risks: bleeding, infection, allergic reaction, anaphylaxis = severe allergic reaction that can cause ; Benefits: reduced need for medications, improved symptoms, disease modification. Alternatives: watch/wait, change medication regimen, improve allergy avoidance measures, Our staff discussed the warning signs of anaphylaxis and the indications to use self-injectable epinephrine and seek urgent or emergent care.?Patient education material?sent to portal??Yes * Follow Up:?4 Weeks (Reason: Evaluation and Management) * Billing Information: * Visit Code:? 74601 Office Visit, Est Pt., Level 4. Modifiers: 25 * Procedure Codes:? G8427 DOC MEDS VERIFIED W/[place]. [id number] Derick Campbell - Incident-to. * Sign off status: Completed true * Provider:?Bautista Campbell PA-C Date:? Generated for Chaka hodge/Lashawn/Fallon on:?01/21/2024 09:46 AM [employer] History and Physical Notes * HPI (History of Present Illness) Category Sub-Category Detail Notes Category Not es *Introduction I had the pleasure o f seeing Nika Rose, a 33 y/o female with history of alpha-gal returning for interval evaluation and management. She is alone for today's visit. She reports being bit by something 9 years ago resulting in treatment with abx. There was an enlarged lymph node in her groin x 11 months resulting in surgery and pathology showing due to insect. Almost immediately after this bite, she started to have increased nausea, diarrhea, and abdominal cramping with ingestion of dairy products. Tried to switch to lactose-free products without relief. Symports would occur generally less than an hour. This would occur every time with ingestion. That said, she has been 6 times, reporting lack of symptoms at these times. She will also report increased itchiness and GI symptoms with beef and pork. She is able to tolerate chicken and fish with minimal issue. At this point, not absolutely avoiding mammalian meats. She has never had a reaction to the point where she needed AIE which she does not carry. She will get itchy spots that do not raise. This has not occurred outside to setting of avoidance of red meats. She reports recent tick bite occurring approx early September. She has had [facility] food sensitivity testing though is not actively avoiding foods. Since last visit, she has obtained repeat alpha gal panel with similar elevation. Also noted were elevated IgE to beef and milk. Now avoiding memalian meats and products with some reproted relief. Still with reproted reactions with increased sinus congestion and abdominal pain without clear ingestion of mammalian products - unclear if cross contamination is occuring. Aeroallergen skin testing was completed at first visit, and was positive to multiple seasonal and perennial allergens She reports recurrent sinus congestion, runny nose, and PND. She has had prior sinus surgery in the past.Treating with Zyrtec and Flonase with some benefit. She has 2 dogs at home with noted increased itchy skin around them. Also notes symptoms worsen around dogs. Her dad has a strong history of seasonal allergies. She also reports taking PCN at 6 months old for war infection. Her lips started to turn blue. She was taken to ED. History otherwise unclear. She has avoided since. Today, she reports no fevers, chills, night sweats or other constitutional symptoms Examination Category Sub-Category Detail Notes Category Not es General examination HEENT: pupils equal , round, and reactive to light and accommodation, conjunctiva are injected bilaterally, no tenderness to palpation of the sinuses, TM's without evidence of acute infection, turbinates 2+ swollen and pale inferiorly bilaterally, clear rhinorrhea is present, no polyps noted, no septal perforation, posterior oropharynx is erythematous and cobblestoning is present, erythema on pharyngeal wall, no exudates, no tongue swelling, and uvula is midline Neck, thyroid : supple, non-tender, no anterior cervical lymphadenopathy Heart: RRR, S1-S2, no murmu rs, no rubs, no gallops Lungs: clear to auscultatio n and percussion in all lung noel, no wheezes or crackles Abdomen: soft, NT/ND, normal active bowel sounds Extremities: normal ROM, no clubb ing, no cyanosis, no edema General appearance: pleasant, well-devel oped, well-nourished Skin: normal, no rash, wesley matographism, urticaria, angioedema Neurologic exam: unremarkable Oral cavity: normal, no lesions Breasts : not performed Peripheral pulses: normal (2+) bilatera lly Back: normal Genitalia: not performed
--- OUTSIDE RECORDS SUMMARY | 2024-01-21 09:47 | XMS_ITS ---
Author Organization [facility] Address [address] [place] [address] Phone Care Team Providers Care Radio Program Checker Name Role Phone WESTLEY ARANGO MD Primary Care Provider [phone] WESTLEY LACY MD Unavailable Unavailable Plan of Treatment Findings Encounter Date The options include close observation SI CK VISIT with YUE A LILY PILE DRIVING NOZZLEMAN-C 12/10/2019 Last Documented On 0 5:04PM ; [facility] Watch for signs/symptoms of infection, return to the clinic if seen SICK VISIT with YUE A LILY PILE DRIVING NOZZLEMAN-C 12/10/2019 Last Documented On 0 5:04PM ; [facility] Instructions to patient Watch for signs/symptoms of infection, return to the clinic if seen Last Documented On 0 10:46AM ; [facility] Assessments Includes: Assessments for all patient encounters Findings Encounter Date Exposure to a viral disease SICK VISIT with TRAC IE A LILY PILE DRIVING NOZZLEMAN-C 12/10/2019 Last Documented On 0 5:04PM ; [facility] Instructions Includes: Instructions for all patient encounters Instructions to patient Watch for signs/symptoms of infection, return to the clinic if seen Last Documented On 0 10:46AM ; [facility] Medical Equipment - Implanted Devices Includes: Current and historical Devices No Medical Equipment Recorded Medications Includes: Current and historical Medications No Medications Taken Medications Administered Includes: Administered Medications in patient's chart No Administered Medications Recorded Results Includes: Results from 01/20/2023 through 01/21/2024 No Results Recorded For Specified Dates History of Present Illness History of Present Illness not supported for this document type No History of Present Illness Recorded Social History Description Last Updated No travel 12/10/2019 Last Documented On 0 5:04PM ; [facility] Smoking Status Unknown Medical History Includes: Medical History in patient's chart Description Last Updated Exposure to a contagious disease 020 Last Documented On 0 5:04PM ; [facility] Family History Includes: Family History in patient's chart No Family History Recorded Review of Systems Review of Systems not supported for this document type No Review of Systems Recorded Mental Status No Mental Status Recorded Functional Status No Functional Status Recorded Physical Exam Physical Exam not supported for this document type No Physical Exam Recorded Allergies Includes: Active, inactive, and resolved Allergies No Known Allergies Insurance Includes: Active Insurance Policies Plan Name Member ID Group # Subscriber Relationship Effect sindy Dates 1 - [employer] [id number] GENIE Yip DAY Self Clinical Notes Includes: Signed Clinical Notes starting from 02/28/2022 No Clinical Notes Recorded
--- OUTSIDE RECORDS SUMMARY | 2024-01-21 09:47 | XMS_ITS | Data Portability ---
Author Organization [employer] , [facility] Address [address] [place] [address] Assessment No assessment recorded. Plan of Treatment Reminders Order Date Submit Date Provider Last Modified By Organization Details Last Modified Time Details Appointments None recorded. Lab hemoglobin A1c, QN, blood 2022 023 [employer] [facility], [address] [place] [address], [address], 3 12:13:54 culture, urine 2022 023 [employer] [facility], [address], [address], [place], [address], 3 16:28:17 varicella-z annalee igg Ab screen, serum 2022 023 [employer] [facility], [address], [address], [place], [address], 3 16:28:08 hemoglobino sharita profile, blood 2022 023 [employer] [facility], [address], [address], [place], [address], 3 16:28:09 antibody screen, serum or plasma 2022 023 [employer] [facility], [address] [facility], [place], [address], 3 16:28:10 abo group + rh type, blood 2022 023 [employer] [facility], [address] [facility], [place], [address], 3 16:28:10 CBC w/ auto diff 2022 023 [facility] [facility], [address] [place], [address], 3 12:35:45 CT + NG DNA, PCR, unspecified specimen 2022 023 [employer] [facility] [facility], [address] [place], [address], 3 14:40:40 drug of abuse panel, urine 2022 023 [employer], [address] [place], [address], 3 12:29:37 obstetric screen + HIV, serum or blood 2022 023 [employer] [facility] [facility], [address] [place], [address], 3 13:27:25 Referral None recorded. Procedures None recorded. Surgeries None recorded. Imaging US, obstetric, transvagina l 2022 023 kbritsch Not available 3 14:38:43 Medication Orders Prometrium 100 mg capsule 2022 023 [place] [address] [facility], [address] [place], [address], 4 15:56:46 Patient TargetsNo targets recorded. Patient InstructionsNo instructions recorded. Reason for Referral None Reported. Results Created Date Observation Date Name Description Value Unit Range Abnormal Flag Note LastModifiedBy Organization Detail LastModifiedTime 01/25/2023 [UNIT Y] ANEUP LOIDY NIPT fraction 10.8% normal Not Available [address], [place], [address], 01/25/2023 17:06:39 01/25/2023 [UNIT Y] ANEUP LOIDY NIPT sex chromosome aneuploidy NOT DETECT ED normal Not Available [facility] [address], [place], [address], 01/25/2023 17:06:39 01/25/2023 [UNIT Y] ANEUP LOIDY NIPT monosomy X LOW RISK <1 in 10,000 normal Not Available [facility] [address], [place], [address], 01/25/2023 17:06:39 01/25/2023 [UNIT Y] ANEUP LOIDY NIPT trisomy 13 LOW RISK <1 in 10,000 normal Not Available [facility] [address], [place], [address], 01/25/2023 17:06:39 01/25/2023 [UNIT Y] ANEUP LOIDY NIPT trisomy 18 LOW RISK <1 in 10,000 normal Not Available [facility] [address], [place], [address], 01/25/2023 17:06:39 01/25/2023 [UNIT Y] ANEUP LOIDY NIPT trisomy 21 LOW RISK <1 in 10,000 normal Not Available [facility] [address] , [place], [address], 01/25/2023 17:06:39 01/25/2023 [UNIT Y] ANEUP LOIDY NIPT sex MALE normal Not Available [facility] [address] , [place], [address], 01/25/2023 17:06:39 01/25/2023 [UNIT Y] ANEUP LOIDY NIPT gestation SINGLE TON normal Not Available [facility] [address] , [place], [address], 01/25/2023 17:06:39 01/25/2023 [UNIT Y] ANEUP NELY NIPT for detailed report, see pdf See PDF normal Not Available [facility] [address], [place], [address], 01/25/2023 17:06:39 02/03/2023 [UNIT Y] MORGAN Molina sickle cell disease/beta -thalassemia /hemoglobino pathies carrier screen NEGATI VE normal Not Available [facility] [address], [place], [address], 02/03/2023 14:49:16 02/03/2023 [UNIT Y] MORGAN Molina alpha-thalas semia carrier screen NEGATI VE normal Not Available [facility] [address], [place], [address], 02/03/2023 14:49:16 02/03/2023 [UNIT Y] MORGAN Molina cystic fibrosis carrier screen NEGATI VE normal Not Available [facility] [address], [place], [address], 02/03/2023 14:49:16 02/03/2023 [UNIT Y] MORGAN Molina spinal muscular atrophy carrier screen NEGATI VE 2 SMN1 copies , SNP not presen t normal Not Available [facility] [address], [place], [address], 02/03/2023 14:49:16 02/03/2023 [UNIT Y] MORGAN Molina for detailed report, see pdf See PDF normal Not Available [facility] [address], [place], [address], 02/03/2023 14:49:16 12/16/19 23 12/16/2022 HCG, TOTAL , QUANT HCG, total, quant 4676 mIU/m L <5 high Refer ence Range s are for femal es aged 18 years - Adult Nonpr egnan t or preme nopau tanmay <5 Postm enopa usal <10 Value s from diffe rent assay metho ds may vary. The use of this assay to monit or or to diagn ose patie nts with cance r or any other condi tion unrel ated to pregn caroline has not been valid ated by [facility] this assay . Not Available [facility] [address] [place], [address], 12/16/2022 11:47:29 12/16/19 23 12/15/2022 pregn caroline test, urine HCG positi ve Not Available [facility] [address] [place], [address], 12/15/2022 09:44:01 12/20/1912/20/2022 HCG, TOTAL , QUANT HCG, total, quant 32819 mIU/m L <5 high Refer ence Range s are for femal es aged 18 years - Adult Nonpr egnan t or preme nopau tanmay <5 Postm enopa usal <10 Value s from diffe rent assay metho ds may vary. The use of this assay to monit or or to diagn ose patie nts with cance r or any other condi tion unrel ated to pregn caroline has not been valid ated by the manuf actur er of this assay . Not Available [employer] [place], [address], 12/20/2022 12:35:43 01/29/20 23 01/29/2023 HEMOG LOBIN A1C hemoglobin A1C 5.1 % <5.7 normal The refer ence range for HbA1c is indic ated in the table below . Sugge sted Diagn osis =6.5% Consi stent with diabe keiko 5.7 6.4% Consi stent with incre ased risk for diabe keiko (pred iabet ic) <5.7% Consi stent with the absen ce of diabe keiko [place], [address], 01/29/2023 12:13:54 01/29/20 23 01/29/2023 DRUG ABUSE PANEL 7 W/CON FIRM amphetamines Negati ve negati ve normal [place], [address], 01/29/2023 12:29:37 01/29/20 23 01/29/2023 DRUG ABUSE PANEL 7 W/CON FIRM barbiturates Negati ve negati ve normal Not Available [facility] [address] [place], [address], 01/29/2023 12:29:37 01/29/20 23 01/29/2023 DRUG ABUSE PANEL 7 W/CON FIRM benzodiazepi daphne Negati ve negati ve normal Not Available [facility] [address] [place], [address], 01/29/2023 12:29:37 01/29/20 23 01/29/2023 DRUG ABUSE PANEL 7 W/CON FIRM cocaine metabolites Negati ve negati ve normal Not Available [facility] [address] [place], [address], 01/29/2023 12:29:37 01/29/20 23 01/29/2023 DRUG ABUSE PANEL 7 W/CON FIRM cannabinoids Negati ve negati ve normal Not Available [facility] [address] [place], [address], 01/29/2023 12:29:37 01/29/20 23 01/29/2023 DRUG ABUSE PANEL 7 W/CON FIRM methadone Negati ve. negati ve normal Not Available [facility] [address] [place], [address], 01/29/2023 12:29:37 01/29/20 23 01/29/2023 DRUG ABUSE PANEL 7 W/CON FIRM opiates Negati ve negati ve normal Not Available [facility] [address] [place], [address], 01/29/2023 12:29:37 01/29/20 23 01/29/2023 DRUG ABUSE PANEL 7 W/CON FIRM creatinine, urine 27 mg/dL 20 - 275 normal Not Available [facility] [address] [place], [address], 01/29/2023 12:29:37 01/29/20 23 01/29/2023 CBC (INCL UDES DIFF/ PLT) WBC 8.2 thous and/u L 4.0 - 9.8 normal Not Available [address], [address], 01/29/2023 12:35:45 01/29/20 23 01/29/2023 CBC (INCL UDES DIFF/ PLT) RBC 4.0 chuck on/uL 3.9 - 4.9 normal Not Available [address], [address], 01/29/2023 12:35:45 01/29/20 23 01/29/2023 CBC (INCL UDES DIFF/ PLT) hemoglobin 11.5 g/dL 11.8 - 14.8 low Not Available [address], [address], 01/29/2023 12:35:45 01/29/20 23 01/29/2023 CBC (INCL UDES DIFF/ PLT) hematocrit 34.6 % 35.5 - 44.0 low Not Available [address], [address], 01/29/2023 12:35:45 01/29/20 23 01/29/2023 CBC (INCL UDES DIFF/ PLT) MCV 87.4 fL 82.0 - 99.0 normal Not Available [address], [address], 01/29/2023 12:35:45 01/29/20 23 01/29/2023 CBC (INCL UDES DIFF/ PLT) MCH 29.0 pg 27.2 - 32.6 normal Not Available [address], [address], 01/29/2023 12:35:45 01/29/20 23 01/29/2023 CBC (INCL UDES DIFF/ PLT) MCHC 33.2 g/dL 31.5 - 35.5 normal Not Available [address], [address], 01/29/2023 12:35:45 01/29/20 23 01/29/2023 CBC (INCL UDES DIFF/ PLT) RDW-CV 13.3 % 11.5 - 14.5 normal Not Available [address], [address], 01/29/2023 12:35:45 01/29/20 23 01/29/2023 CBC (INCL UDES DIFF/ PLT) platelet 348 thous and/u L 140 - 350 normal Not Available [address], [address], 01/29/2023 12:35:45 01/29/20 23 01/29/2023 CBC (INCL UDES DIFF/ PLT) MPV 10.1 fL 9.3 - 12.4 normal Not Available [address], [address], 01/29/2023 12:35:45 01/29/20 23 01/29/2023 CBC (INCL UDES DIFF/ PLT) absolute neutrophil 5.25 thous and/u L 1.90 - 7.00 normal Not Available [address], [address], 01/29/2023 12:35:45 01/29/20 23 01/29/2023 CBC (INCL UDES DIFF/ PLT) absolute lymphocyte 2.21 thous and/u L 0.70 - 4.50 normal Not Available [address], [address], 01/29/2023 12:35:45 01/29/20 23 01/29/2023 CBC (INCL UDES DIFF/ PLT) absolute monocyte 0.50 thous and/u L 0.10 - 1.30 normal Not Available [address], [address], 01/29/2023 12:35:45 01/29/20 23 01/29/2023 CBC (INCL UDES DIFF/ PLT) absolute eosinophil 0.15 thous and/u L <0.70 normal Not Available [address], [address], 01/29/2023 12:35:45 01/29/20 23 01/29/2023 CBC (INCL UDES DIFF/ PLT) absolute basophil 0.03 thous and/u L <0.20 normal Not Available [address], [address], 01/29/2023 12:35:45 01/29/20 23 01/29/2023 CBC (INCL UDES DIFF/ PLT) absolute immature granulocyte 0.01 thous and/u L <0.03 normal Not Available [address], [address], 01/29/2023 12:35:45 01/29/20 23 01/29/2023 OB PANEL - STD BLOOD WORK hep BS Ag Non-Re active non-re active normal Not Available [address], [address], 01/29/2023 13:27:25 01/29/20 23 01/29/2023 OB PANEL - STD BLOOD WORK hep C Ab Non-Re active non-re active normal Not Available [address], [address], 01/29/2023 13:27:25 01/29/20 23 01/29/2023 OB PANEL - STD BLOOD WORK HIV 1/2 Ag/Ab Non-Re active non-re active normal Not Available [address], [address], 01/29/2023 13:27:25 01/29/20 23 01/29/2023 OB PANEL - STD BLOOD WORK syphilis Ab Non-Re active non-re active normal Not Available [address], [address], 01/29/2023 13:27:25 01/29/20 23 01/29/2023 OB PANEL - STD BLOOD WORK rubella Ab IgG 185.60 IU/mL normal INTER PRETI VE INFOR MATIO N: Rubel la Antib jyothi, IgG. < 5.0 IU/mL ..... ..... . Not consi stent with immun ity 5.0 - 9.9 IU/mL ..... . Equiv ocal: Indet ermin ate-R epeat testi ng in 10-14 days may be helpf ul. > or = 10.0 IU/mL ... Consi stent with immun ity The prese nce of Rubel la IgG antib jyothi sugge st respo nse to immun izati on or prior /curr ent expos ure to the Rubel la virus . Not Available [facility] [address] [place], [address], 01/29/2023 13:27:25 01/29/20 23 01/29/2023 CT/NG chlamydia trachomatis CT neg negati ve normal This repor t is inten ded for us in clini ericka monit oring and manag ement of patie nts. It is not inten ded for use in medic al-le gal appli catio n. Not Available [employer] [facility] [address] [facility], [place], [address], 01/29/2023 14:40:40 01/29/20 23 01/29/2023 CT/NG neisseria gonorrhoeae GC neg negati ve normal This repor t is inten ded for us in clini ericka monit oring and manag ement of patie nts. It is not inten ded for use in medic al-le gal appli catio n. Not Available [facility] [address] [facility], [place], [address], 01/29/2023 14:40:40 01/29/20 23 02/03/2023 VARIC IRIS ZOSTE R VIRUS ANTIB JYOTHI (IGG) varicella zoster virus antibody (IgG) 540.60 index normal Index Inter preta tion ----- ---- ----- ----- ----- ----- -- <135. 00 Negat sindy - Antib jyothi not detec aaron 135.0 0 - 164.9 9 Equiv ocal > or = 165.0 0 Posit sindy - Antib jyothi detec aaron A posit sindy resul t indic ates that the patie nt has antib jyothi to VZV but does not diffe renti ate betwe en an activ e or past infec tion. The clini reicka diagn osis must be inter prete d in conju nctio n with the clini ericka signs and sympt oms of the patie nt. This assay relia sandrine measu res immun ity due to previ ous infec tion but may not be sensi tive enoug h to detec t antib odies induc ed by vacci natio n. Thus, a negat sindy resul t in a vacci nated indiv idual does not neces saril y indic ate susce ptibi lity to VZV infec tion. A more sensi tive test for vacci natio n-ind uced immun ity is Varic iris José Miguele r Virus Antib jyothi Immun ity Scree n, ACIF. Not Available [facility] [address], [address], 02/03/2023 16:28:08 01/29/20 23 02/03/2023 HEMOG LOBIN OPATH Y EVALU ATION red blood cell count 3.90 chuck on/uL 3.80-5 .10 Not Available [facility] [address], [address], 02/03/2023 16:28:09 01/29/20 23 02/03/2023 HEMOG LOBIN OPATH Y EVALU ATION hemoglobin 11.3 g/dL 11.7-1 5.5 low Not Available [facility] [address], [address], 02/03/2023 16:28:09 01/29/20 23 02/03/2023 HEMOG LOBIN OPATH Y EVALU ATION hematocrit 35.8 % 35.0-4 5.0 Not Available [facility] [address] [address] [place], [address], 02/03/2023 16:28:09 01/29/20 23 02/03/2023 HEMOG LOBIN OPATH Y EVALU ATION MCV 91.8 fL 80.0-1 00.0 Not Available [address] [address] [place], [address], 02/03/2023 16:28:09 01/29/20 23 02/03/2023 HEMOG LOBIN OPATH Y EVALU ATION MCH 29.0 pg 27.0-3 3.0 Not Available [address], [address], 02/03/2023 16:28:09 01/29/20 23 02/03/2023 HEMOG LOBIN OPATH Y EVALU ATION RDW 12.8 % 11.0-1 5.0 Not Available [address] [address] [place], [address], 02/03/2023 16:28:09 01/29/20 23 02/03/2023 HEMOG LOBIN OPATH Y EVALU ATION hemoglobin A 97.6 % >96.0 Not Available [address], [address], 02/03/2023 16:28:09 01/29/20 23 02/03/2023 HEMOG LOBIN OPATH Y EVALU ATION hemoglobin F <1.0 % <2.0 Not Available [address] [address] [place], [address], 02/03/2023 16:28:09 01/29/20 23 02/03/2023 HEMOG LOBIN OPATH Y EVALU ATION hemoglobin A2 (quant) 2.4 % 2.2-3. 2 Not Available [address] [place], [address], 02/03/2023 16:28:09 01/29/20 23 02/03/2023 HEMOG LOBIN OPATH Y EVALU ATION interpretati on Carlene l pheno type. Carlene l hemog lobin distr ibuti on, no HgS, HgC or other abnor mal hemog lobin obser mare. Not Available [address] [address] [place], [address], 02/03/2023 16:28:09 01/29/20 23 02/03/2023 ANTIB JYOTHI SCREE N, RBC W/REF L ID, TITER AND AG antibody screen, RBC w/refl id, titer and Ag NO ANTIBO DIES DETECT ED normal Refer ence range No antib odies detec aaron This assay is a scree quan test for the detec tion of red blood cell antib odies . The test is not to be used for pretr ansfu chante scree quan or for the medic al manag ement of an alloi mmuni zed pregn caroline. Not Available [facility] [address] , [place], [address], 02/03/2023 16:28:10 01/29/20 23 02/03/2023 ABO GROUP AND RH TYPE ABO group O Not Available [address] , [place], [address], 02/03/2023 16:28:10 01/29/20 23 02/03/2023 ABO GROUP AND RH TYPE Rh type RH(D) POSITI VE For addit ional infor kennedi august e refer to http: //[facility]ina.Que stDia gnost ics.c om/fa q/FAQ 111 (This link is being provi ded for infor kuldip pacheco/ lizett cannono ses only. ) Not Available [address] [place], [address], 02/03/2023 16:28:10 01/29/20 23 02/03/2023 ANTIB JYOTHI SCREE N, RBC W/REF L ID, TITER AND AG antibody screen, RBC w/refl id, titer and Ag TNP TEST NOT PERFO RMED Dupli meño test. Not Available [facility] [address] [place] [place], [address], 02/03/2023 16:28:16 01/29/20 23 02/03/2023 ABO GROUP AND RH TYPE ABO group TNP TEST NOT PERFO RMED Dupli meño test. Not Available [facility] [address], [place], [address], 02/03/2023 16:28:16 01/29/20 23 02/03/2023 CULTU RE, URINE , ROUTI NE culture, urine, routine SEE NOTE CULTU RE, URINE , ROUTI NE Micro Numbe r: [id number] Test Statu s: Final Speci men Sourc e: Urine Speci men Quali ty: Adequ ate Resul t: Great er than 100,0 00 CFU/m L of Non-u ropat hogen ic Gram posit sindy organ ism May repre sent colon izers from exter nal and inter nal genit andriy. No furth er testi ng (incl uding susce ptibi lity) will be perfo rmed. Not Available [facility] [address] , [place], [address], 02/03/2023 16:28:17 12/31/19 23 12/29/2022 US, obste tric, trans vagin al No observ ation record ed. [email or web address], [facility], [place], [address], 12/30/2022 14:45:00 02/26/19 24 02/25/2023 US, norbertoe tric No observ ation record ed. [email or web address] [address], [place], [address], 02/26/2023 09:58:20 03/02/19 24 03/02/2023 US, tonya samuels No observ ation record ed. [address], [address], 05/25/2023 11:24:29 Result Notes None recorded. Problems Name Problem SNOMED Code Status Onset Date Resolution Date Notes Provider Name and Address Organization Details Recorded Time Procedur e on genitour inary system Completed 201806/07/2019 Encounte r for surgical aftercar e followin g surgery on the genitour inary system; Progress : Stable Added By: Sadaf Griffith Add to Current Problems : NO ProblemS tatus: Resolve Not Available [facility] 2 13:10:46 Postoper ative care Completed 201806/07/2019 Encounte r for surgical aftercar e followin g surgery on the genitour inary system; Progress : Stable Added By: Sadaf Griffith Add to Current Problems : NO ProblemS tatus: Resolve Not Available [facility] 2 13:10:46 Vaginola bial hernia Completed 201601/12/2017 Other specifie d noninfla mmatory disorder s of vagina; Progress : Stable Added By: Lydia Krishna Add to Current Problems : NO ProblemS tatus: Resolve Vaginal Discharg e; Location : None Progress : Stable Added By: Lydia Krishna Add to Current Problems : YES ProblemS tatus: Resolve Not Available [facility] 2 13:10:47 Menorrha ousmane [id number] Completed 201502/16/2016 Menorrha ousmane; Severity : Moderate Progress : Stable Added By: Valeria Toledo Add to Current Problems : NO ProblemS tatus: Resolve Not Available [facility] 1 04:04:53 Pain in female genitali a Completed 201507/16/2015 Dysmenor bronson, unspecif ied; Progress : Stable Added By: Jimmie Gabriel Add to Current Problems : NO ProblemS tatus: Resolve Not Available [facility] 2 13:10:50 Miscarri age [id number] Completed 201601/12/2017 Complete or unspecif ied spontane ous without complica tion; Progress : Stable Added By: Jana Quiroz i Add to Current Problems : NO ProblemS tatus: Resolve Uncompli cated complete spontane ous ; Location : None Progress : Stable Added By: Jana Quiroz i Add to Current Problems : YES ProblemS tatus: Resolve Not Available [facility] 2 13:10:59 Gestatio n period, 20 weeks [id number] Completed 201903/07/2020 20 weeks gestatio n of pregnanc y; Progress : Stable Added By: Nya Lawrence Add to Current Problems : NO ProblemS tatus: Resolve Not Available [facility] 2 13:10:54 Follicul ar cyst of ovary [id number] Completed 201406/14/2018 Ovarian cyst; Location : None Progress : Stable Added By: Laury Last Add to Current Problems : YES ProblemS tatus: Current Ovarian cyst; Progress : Stable Added By: Laury Last Add to Current Problems : NO ProblemS tatus: Resolve Not Available [facility] 2 13:10:42 Antenata l ultrasou nd finding [id number] Completed 201911/16/2019 Encounte r for pregnanc y test, result unknown; Progress : Stable Added By: Jaki Murillo Add to Current Problems : NO ProblemS tatus: Resolve Not Available [facility] 2 13:10:44 Disorder of kidney and/or ureter [id number] Completed 201710/07/2017 Pyelecta sis; Location : None Progress : Stable Added By: London Rosario Add to Current Problems : YES ProblemS tatus: Resolve Pyelecta sis; Location : None Progress : Stable Added By: David Luis Add to Current Problems : YES ProblemS tatus: Resolve; Start Date : 05/19/19 18 Not Available [facility] 2 13:10:51 Finding of pattern of menstrua l cycle [id number] Completed 201502/16/2016 Excessiv e and frequent menstrua tion with irregula r cycle; Progress : Stable Added By: Valeria Toledo Add to Current Problems : NO ProblemS tatus: Resolve Menorrha ousmane; Location : None Progress : Stable Added By: Valeria Toledo Add to Current Problems : YES ProblemS tatus: Resolve Not Available [facility] 2 13:10:58 Surveill ance of oral contrace ption done [id number] 9108 Completed 201706/14/2018 Contrace ptive surveill ance, unspecif ied; Location : None Severity : Moderate Progress : Stable Added By: David Luis Add to Current Problems : YES ProblemS tatus: Current Contrace ptive surveill ance, unspecif ied; Severity : Moderate Progress : Stable Added By: David Luis Add to Current Problems : NO ProblemS tatus: Resolve Not Available [facility] 1 04:04:54 Rubella screenin g status [id number] Completed 201610/07/2017 Antenata l screenin g; unspecif ied; Location : None Progress : Stable Added By: Lucía Kang Add to Current Problems : YES ProblemS tatus: Resolve Antenata l screenin g; unspecif ied; Location : None Progress : Stable Added By: Lydia Krishna Add to Current Problems : YES ProblemS tatus: Resolve Encounte r for antenata l screenin g, unspecif ied; Progress : Stable Added By: Lucía Kang Add to Current Problems : NO ProblemS tatus: Resolve Not Available [facility] 2 13:10:55 Gestatio n period, 32 weeks [id number] Completed 202003/21/2020 32 weeks gestatio n of pregnanc y; Progress : Stable Added By: See Silva Add to Current Problems : NO ProblemS tatus: Resolve Not Available [facility] 2 13:10:52 Gestatio n period, 12 weeks [id number] Completed 201911/16/2019 12 weeks gestatio n of pregnanc y; Progress : Stable Added By: Patience Munroe Add to Current Problems : NO ProblemS tatus: Resolve Not Available [facility] 2 13:10:43 Gestatio n period, 28 weeks [id number] Completed 201903/07/2020 28 weeks gestatio n of pregnanc y; Progress : Stable Added By: Cherelle Gordon Add to Current Problems : NO ProblemS tatus: Resolve Not Available [facility] 2 13:10:55 Miscarri age without complica tion [id number] Completed 201906/07/2019 Incomple te spontane ous without complica tion; Progress : Stable Added By: Jimmie Gabriel Add to Current Problems : NO ProblemS tatus: Resolve Not Available [facility] 2 13:10:44 Acute vaginiti s [id number] Completed 201911/16/2019 Acute vaginiti s; Progress : Stable Added By: Jimmie Gabriel Add to Current Problems : NO ProblemS tatus: Resolve Not Available [facility] 2 13:10:42 Clinical finding Completed 201806/07/2019 state, incident al; Progress : Stable Added By: Christina Fragoso Add to Current Problems : NO ProblemS tatus: Resolve Not Available [facility] 2 13:10:56 Gestatio n period, 16 weeks [id number] Completed 201901/11/2020 16 weeks gestatio n of pregnanc y; Progress : Stable Added By: See Silva Add to Current Problems : NO ProblemS tatus: Resolve Not Available [facility] 2 13:10:47 Dysmenor bronson [id number] Completed 201507/16/2015 Dysmenor bronson; Location : None Progress : Stable Added By: Jimmie Gabriel Add to Current Problems : NO ProblemS tatus: Resolve Not Available [facility] 2 13:10:53 Gestatio n period, 24 weeks [id number] Completed 201903/07/2020 24 weeks gestatio n of pregnanc y; Progress : Stable Added By: See Silva Add to Current Problems : NO ProblemS tatus: Resolve [facility] Available [facility] 2 13:10:48 Gestatio n period, 10 weeks [id number] Completed 201911/16/2019 10 weeks gestatio n of pregnanc y; Progress : Stable Added By: Sadaf Tse Add to Current Problems : NO ProblemS tatus: Resolve Not Available [facility] 2 13:10:43 Breast lump [id number] Completed 201506/14/2018 Breast mass; Progress : Stable Added By: Shanna Cody Add to Current Problems : NO ProblemS tatus: Resolve Unspecif ied lump in breast; Progress : Stable Added By: Shanna Cody Add to Current Problems : NO ProblemS tatus: Resolve Breast mass; Location : None Progress : Stable Added By: Shanna Cody Add to Current Problems : YES ProblemS tatus: Current Not Available [facility] 2 13:10:46 Uterine size for dates discrepa ncy Completed 201903/07/2020 Uterine size-oliver e discrepa ncy, unspecif ied trimeste r; Progress : Stable Added By: Cherelle Gordon Add to Current Problems : NO ProblemS tatus: Resolve Not Available [facility] 2 13:10:42 Spotting per vagina in pregnanc y [id number] Completed 201806/07/2019 Spotting complica ting pregnanc y, unspecif ied trimeste r; Progress : Stable Added By: Ana Maria Watkins Add to Current Problems : NO ProblemS tatus: Resolve Not Available [facility] 2 13:10:44 Slow transit constipa tion [id number] Completed 201406/14/2018 Constipa tion; Location : None Progress : Stable Added By: Jimmie Gabriel Add to Current Problems : NO ProblemS tatus: Current Constipa tion; Progress : Stable Added By: Jimmie Gabriel Add to Current Problems : NO ProblemS tatus: Resolve Not Available [facility] 2 13:10:51 Threaten ed miscarri age [id number] Completed 201906/07/2019 Threaten ed ; Progress : Stable Added By: Christina Fragoso Add to Current Problems : NO ProblemS tatus: Resolve Not Available [facility] 2 13:10:48 Gestatio n period, 30 weeks [id number] Completed 202003/07/2020 30 weeks gestatio n of pregnanc y; Progress : Stable Added By: Ivon Robbins Add to Current Problems : NO ProblemS tatus: Resolve Not Available [facility] 2 13:10:53 Gestatio n period, 39 weeks [id number] Completed 201610/07/2017 39 weeks gestatio n of pregnanc y; Progress : Stable Added By: Lucía Kang Add to Current Problems : NO ProblemS tatus: Resolve Not Available [facility] 2 13:10:57 Partial hydatidi form mole [id number] Completed 201911/16/2019 Incomple te and partial hydatidi form mole; Progress : Stable Added By: Jimmie Gabriel Add to Current Problems : NO ProblemS tatus: Resolve Not Available [facility] 2 13:10:54 Normal pregnanc y in multigra elizabet [id number] 4106 Completed 201901/11/2020 Encounte r for supervis ion of other normal pregnanc y, unspecif ied trimeste r; Severity : Moderate Progress : Stable Added By: Lydia Krishna Add to Current Problems : NO ProblemS tatus: Resolve; Start Date : 10/29/19 17 Encou nter for supervis ion of other normal pregnanc y, first trimeste r; Severity : Moderate Progress : Stable Added By: Patience Munroe Add to Current Problems : NO ProblemS tatus: Resolve; Start Date : 10/09/19 19 Encou nter for supervis ion of other normal pregnanc y, second trimeste r; Severity : Moderate Progress : Stable Added By: See Silva Add to Current Problems : NO ProblemS tatus: Resolve Encounte r for supervis ion of other normal pregnanc y, third trimeste r; Severity : Moderate Progress : Stable Added By: Sadaf Tse Add to Current Problems : YES ProblemS tatus: Current; Start Date : 01/13/20 17 Sadaf Tse [facility], [facility] 2 10:51:44 Dysuria [id number] Completed 201710/07/2017 Dysuria; Location : None Progress : Stable Added By: David Luis Add to Current Problems : YES ProblemS tatus: Resolve Painful micturit ion, unspecif ied; Progress : Stable Added By: David Luis Add to Current Problems : NO ProblemS tatus: Resolve Not Available [facility] 2 13:10:52 Finding related to pregnanc y Completed 201806/07/2019 Recurren t pregnanc y loss; Progress : Stable Added By: Reji Rg Add to Current Problems : NO ProblemS tatus: Resolve Not Available [facility] 2 13:10:59 Sampling of vagina for Papanico laou smear Completed 201811/16/2019 Encounte r for gynecolo gical examinat ion (general ) (routine ) without abnormal findings ; Progress : Stable Added By: Ivon Robbins Add to Current Problems : NO ProblemS tatus: Resolve Not Available [facility] 2 13:10:47 Clinical finding Completed 201601/12/2017 Encounte r for supervis ion of normal pregnanc y, unspecif ied, unspecif ied trimeste r; Progress : Stable Added By: Lydia Krishna Add to Current Problems : NO ProblemS tatus: Resolve Not Available [facility] 2 13:10:59 Lochia finding Completed 201707/09/2018 Encounte r for routine postpart um follow-u p; Progress : Stable Added By: David Lius Add to Current Problems : NO ProblemS tatus: Resolve Not Available [facility] 2 13:10:49 Gestatio n period, 8 weeks [id number] Completed 201911/16/2019 8 weeks gestatio n of pregnanc y; Progress : Stable Added By: Ivon Robbins Add to Current Problems : NO ProblemS tatus: Resolve Not Available [facility] 2 13:10:50 Right upper quadrant pain 049293600 Completed 201806/07/2019 Right upper quadrant pain; Progress : Stable Added By: Trena Sol Add to Current Problems : NO ProblemS tatus: Resolve Not Available [facility] 2 13:10:45 Hemoglob in A1C - diabetic control finding [id number] Completed 202003/07/2020 Other abnormal glucose; Progress : Stable Added By: Cindy Mac Add to Current Problems : NO ProblemS tatus: Resolve Not Available [facility] 2 13:10:55 Gestatio n less than 9 weeks [id number] Completed 201806/07/2019 Less than 8 weeks gestatio n of pregnanc y; Progress : Stable Added By: Sadaf Griffith Add to Current Problems : NO ProblemS tatus: Resolve Not Available [facility] 2 13:10:51 Surveill ance of contrace ption Completed 201706/07/2019 Contrace ptive surveill ance, unspecif ied; Location : None Progress : Stable Added By: David Luis Add to Current Problems : YES ProblemS tatus: Current Encounte r for surveill ance of contrace ptives, unspecif ied; Progress : Stable Added By: David Luis Add to Current Problems : NO ProblemS tatus: Resolve Not Available [facility] 2 13:10:45 Antenata l screenin g for malforma tion Completed 201903/07/2020 Encounte r for antenata l screenin g for malforma tions; Progress : Stable Added By: Nya Lawrence Add to Current Problems : NO ProblemS tatus: Resolve Not Available [facility] 2 13:10:48 Postpart um care Completed 201707/09/2018 Visit for routine postpart um follow-u p; Location : None Progress : Stable Added By: David Luis Add to Current Problems : YES ProblemS tatus: Resolve Not Available [facility] 2 13:10:53 Screenin g for malignan t neoplasm of cervix Completed 201806/07/2019 Encounte r for screenin g for malignan t neoplasm of cervix; Progress : Stable Added By: Cheri Kuhn Add to Current Problems : NO ProblemS tatus: Resolve Not Available [facility] 2 13:10:56 Screenin g for disorder Completed 201707/09/2018 Encounte r for screenin g for other disorder ; Progress : Stable Added By: David Luis Add to Current Problems : NO ProblemS tatus: Resolve Screenin g for depressi on; Location : None Progress : Stable Added By: David Luis Add to Current Problems : YES ProblemS tatus: Resolve Not Available [facility] 2 13:10:58 Normal pregnanc y [id number] Completed 201608/21/2017 Medical visit for normal pregnanc y; Location : None Progress : Stable Added By: Lydia Krishna Add to Current Problems : YES ProblemS tatus: Resolve; Start Date : 10/29/19 17 Medic al visit for normal pregnanc y; Location : None Progress : Stable Added By: Lydia Krishna Add to Current Problems : YES ProblemS tatus: Resolve Medical visit for normal pregnanc y; Location : None Progress : Stable Added By: Lucía Kang Add to Current Problems : YES ProblemS tatus: Resolve Not Available [facility] 2 13:10:58 Pregnanc y 18754753 Completed 202206/10/2023 [place] [employer] [facility] 4 10:41:08 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 Procedures Surgical History Date Name Laterality Status Provider Name and Address Organization Details Recorded Time 4 endometrial ablation completed Jimmie Gabriel MD [address] [place] [address], [phone], [facility] 06/10/2023 14:45:06 4 dilation and curettage completed Jimmie Gabriel MD [address] [place] [address], [phone], [facility] 05/27/2023 19:34:46 3 Date of Last Pap Smear completed Sole [facility]se [facility] 12/15/2022 09:57:45 2 Mirena IUD Removal completed LOULOU Packer [address] [place] [address], [phone], [facility] [employer] [facility] 05/27/2021 14:07:16 0 Dilation and curettage completed Jimmie Gabriel MD [address] [place], [address], [place] [facility] 01/28/2023 17:46:54 Remove tonsils and adenoids completed Sadaf [facility] 05/24/2021 10:53:06 inguinal region excision completed [facility] 05/24/2021 10:53:30 Imaging Results Imaging Date Name Status LastModified by Organization Details LastModified Time 12/29/2022 US, obstetric, transvaginal completed [email or web address] [address], [place], [address], 12/30/2022 14:45:00 02/25/2023 US, obstetric completed [email or web address] [address], [place], [address], 02/26/2023 09:58:20 03/02/2023 US, guidance completed [address], [address], 05/25/2023 11:24:29 Procedure Notes None recorded. Medical Equipment None Reported. Allergies Allergen ID Allergen Name Allergen Category Reaction Reaction Severity Criticality Documentation Date Start Date Code Code System Note Provider Name and Address Organization Details Recorded Time 585987 Medicinal product containin g penicilli n and acting as antibacte rial agent (product) medicatio n hives moderate Not available 11/30/20202014 61338 05 SNOMED React ion: hives ;Raegan rity: Moder ate; Not Available [facility] 01:05:16 705803 nickel environme nt,medica tion Not available Not available Not available 11/30/20202014 21011 29 RxNorm Sever ity: Moder ate; Not Available [facility] 01:05:16 090879 morphine sulfate medicatio n Not available Not available Not available 11/30/20202014 61479 RxNorm Sever ity: Moder ate; Not Available [facility] 01:05:16 Medications Name Sig Start Date Stop Date Status Note LastModified by Organization Details LastModified Time Prometriu m 200 mg capsule 1 po qhs 2022 active Not Available Not Available Not Avai lable Mirena 21 mcg/24 hr (up to 8 years) 52 mg intrauter ine device Take by intraute rine route. 08/15 completed Not Available Not Available Not Available doxycycli ne hyclate 100 mg capsule TAKE 1 CAPSULE BY MOUTH TWICE A DAY FOR 7 DAYS 03/11 completed Not Available Not Available Not Available clindamyc in HCl 300 mg capsule TAKE 1 CAP BY MOUTH EVERY 8 HOURS FOR 10 DAYS 08/15 completed Not Available Not Available Not Available ibuprofen 800 mg tablet TAKE 1 TABLET BY MOUTH 3 TIMES A DAY NEEDED FOR PAIN. 06/09 completed Not Available Not Available Not Available alprazola m 1 mg tablet TAKE 1 TABLET TWICE A DAY BY ORAL ROUTE NEEDED. 03/11 completed Not Available Not Available Not Available pyridoxin e (vitamin B6) 25 mg tablet 1 tab PO TID 06/10 completed Pyridoxi ne HCl 25mg Tablet Allow Substitu tion: True Refill Denied: No Not Available Not Available Not Available ondansetr on HCl 4 mg tablet TAKE 1 TABLET BY MOUTH EVERY 8 HOURS NEEDED FOR NAUSEA FIRST LINE 12/15 completed Not Available Not Available Not Available Diflucan 150 mg tablet 1 p.o. now 07/18 completed Diflucan 150mg Tablet RxNorm: 290587 Allow Substitu tion: True Refill Denied: No Not Available Not Available Not Available metronida zole 500 mg tablet PLEASE SEE ATTACHED FOR DETAILED DIRECTIO NS 06/09 completed Not Available Not Available Not Available sulfameth oxazole 800 mg-trimet hoprim 160 mg tablet TAKE ONE TABLET BY MOUTH EVERY 12 HOURS FOR TEN DAYS 05/24 completed Not Available Not Available Not Available peg-elect rolyte solution 420 gram oral solution TAKE 4,000 ML BY MOUTH ONE TIME ONLY FOR 1 DOSE 05/24 completed Not Available Not Available Not Available aspirin 81 mg tablet,de layed release take 1 tablet (81 mg) by oral route once daily 10/23 completed aspirin 81 mg oral tablet, delayed release (enteric coated) RxNorm: 169726 Allow Substitu tion: False Refill Denied: No Refill DateOccu rred: 09/21/19 20 Edited by: Mikayla Ventura) on 10/24/19 21 Stopped by: jonna(Mikayla Hobbs) on 10/24/19 21 Not Available Not Available Not Available tramadol 50 mg tablet TAKE 1 TABLET BY MOUTH EVERY 6 HOURS NEEDED 06/09 completed Not Available Not Available Not Available Macrobid 100 mg capsule 1 capsule BID x 7 days 01/02 completed Macrobid 100mg Capsules RxNorm: 788102 Allow Substitu tion: True Refill Denied: No Not Available Not Available Not Available Vitamin tablet 06/14 completed Multivit mackey RxNorm: 0 Allow Substitu tion: True Refill Denied: No Refill DateOccu rred: 10/29/19 17 Not Available Not Available Not Available oxycodone -acetamin ophen 5 mg-325 mg tablet TAKE 1 TABLET BY MOUTH EVERY 4 HOURS NEEDED FOR PAIN FOR UP TO 7 DAYS. 06/09 completed Not Available Not Available Not Available hydrocort isone 2.5 % topical cream with perineal applicato r APPLY A THIN LAYER TO THE AFFECTED AREA(S) BY TOPICAL ROUTE 2-4 TIMESDAI LY active Not Available Not Available No t Available Metrogel Vaginal 0.75 % (37.5 mg/5 gram) 1 applicat or at HS x 5 nights. 07/18 completed MetroGel 0.75% Vaginal Gel RxNorm: 191740 Allow Substitu tion: True Refill Denied: No Not Available Not Available Not Available doxycycli ne monohydra te 100 mg capsule 1 capsule( or tab) po bid for 7 days and may substitu te any form of doxycycl ine 05/24 completed doxycycl ine monohydr ate 100 mg oral capsule RxNorm: 0899436 Allow Substitu tion: True Refill Denied: No Edited by: Jimmie Weir) on 03/24/19 20 Stopped by: Jimmie Weir) on Not Available Not Available Not Available ferrous sulfate 325 mg (65 mg iron) tablet take 1 tablet (325 mg) by oral route 1 times per day 02/14 completed ferrous sulfate 325 mg (65 mg iron) oral tablet RxNorm: 707205 Allow Substitu tion: True Refill Denied: No Edited by: felipa lange(Christina Alfonso A) on 02/14/19 Stopped by: felipa lange(Christina Alfonso A) on 02/14/19 Not Available Not Available Not Available cephalexi n 500 mg tablet 1 tablet PO BID 10/07 completed Cephalex in 500mg Tablet Allow Substitu tion: True Refill Denied: No Not Available Not Available Not Available clindamyc in 2 % vaginal cream insert 1 applicat orful (100 mg) by vaginal route once daily at bedtime 03/07 completed clindamy pete phosphat e 2 % Vaginal Cream RxNorm: 711956 Allow Substitu tion: True Refill Denied: No Edited by: See Verde ) on 03/07/19 Stopped by: See Verde ) on 03/07/19 Not Available Not Available Not Available hydroxyzi ne HCl 25 mg tablet take 1 to 2 tablets (25 mg) by oral route evry 6 hours as needed for nausea or headache s 08/21 completed hydrOXYz ine HCL 25 mg oral tablet RxNorm: 631245 Allow Substitu tion: True Refill Denied: No Edited by: Jaki Null ) on 08/22/19 Stopped by: Jaki Null ) on 08/22/19 Not Available Not Available Not Available aspirin 81 mg tablet Take by oral route. 03/11 completed Not Available Not Available Not Available dicyclomi ne 10 mg capsule take 1-2 capsules every 8 hours as needed 12/07 completed dicyclom ine 10 mg oral capsule RxNorm: 540884 Allow Substitu tion: True Refill Denied: No Edited by: Apolonia Thrasher ) on 12/08/19 Stopped by: harriet Jackson Apolonia ) on 12/08/19 21 Not Available Not Available Not Available progester one micronize d 100 mg capsule TAKE 1 CAPSULE BY MOUTH EVERY DAY 02/25 completed Not Available Not Available Not Available hydroxyzi ne pamoate 25 mg capsule PLEASE SEE ATTACHED FOR DETAILED DIRECTIO NS 06/09 completed Not Available Not Available Not Available NuvaRing 0.12 mg-0.015 mg/24 hr vaginal insert 1 ring vaginal once a month leave in place for 21 days then leave out for a week 06/09 completed Not Available Not Available Not Available escitalop isabell 10 mg tablet TAKE 1/2 TABLET BY MOUTH DAILY FOR 6 NIGHTS AND THEN 1 TABLET NIGHTLY 06/09 completed Not Available Not Available Not Available breast pump Use for lactatin g mother 05/24 completed breast pump Allow Substitu tion: True Refill Denied: No Edited by: Mikayla Vetnura) on 10/24/19 21 Stopped by: Mikayla Ventura) on Not Available Not Available Not Available Naprosyn 04/18 completed Naprosyn RxNorm: 130703 Allow Substitu tion: True Refill Denied: No Refill DateOccu rred: 10/12/19 15 Not Available Not Available Not Available progester one 02/25 completed Not Available Not Available Not Available tramadol 04/18 completed Tramadol Allow Substitu tion: True Refill Denied: No Refill DateOccu rred: 10/12/19 15 Not Available Not Available Not Available Celexa Take 1 tablet(s ) by mouth bid 04/25 completed Celexa 10mg Tablet RxNorm: 509780 Allow Substitu tion: True Refill Denied: No Refill DateOccu rred: 05/17/19 16 Edited by: sis(Shanna Melgoza) on 04/26/19 17 Stopped by: sis(Shanna Melgoza) on 04/26/19 17 Not Available Not Available Not Available Unisom (doxylami ne) 03/11 completed Not Available Not Available Not Available 03/11 completed Not Available Not Available Not Available Unisom SleepGels 03/07 completed Unisom Sleepgel s RxNorm: 2905498 Allow Substitu tion: False Refill Denied: No Refill DateOccu rred: 09/21/19 Edited by: See Verde ) on 03/07/19 Stopped by: rocio(See Jovel ) on 03/07/19 Not Available Not Available Not Available Vitamin B6 03/11 completed Not Available Not Available Not Available NuvaRing 04/18 completed NuvaRing RxNorm: 458013 Allow Substitu tion: True Refill Denied: No Not Available Not Available Not Available doxylamin e 10 mg-pyrido xine (vit B6) 10 mg tablet,de layed release take 1 tablet by oral route in the morning and 2 tablets at bedtime 03/07 completed doxylami ne-pyrid oxine (vit B6) 10-10 mg oral tablet, delayed release (enteric coated) RxNorm: 6044008 Allow Substitu tion: True Refill Denied: No Edited by: See Verde ) on 03/07/19 Stopped by: rocio(See Jovel ) on 03/07/19 Not Available Not Available Not Available Vitals Date Recorded Body height Body mass index (BMI) Body weight Body temperature Systolic blood pressure Diastolic blood pressure Provider Name and Address Organization Details Last Updated DateTime 3 152.4 cm 22.3 kg/m2 85810.5 3 g 98.1 [degF] 102 mm[Hg] 70 mm[Hg] Ivon Sinclair [address] - [facility] 3 15:05:09 Date Recorded Body height Provider Name an d Address Organization Details Last Updated DateTime 01/28/2023 152.4 cm Ivon Sinclair [place] [facility] 01/28/2023 17:11:32 Date Recorded Body mass index (BMI) Body temperature Systolic blood pressure Diastolic blood pressure Provider Name and Address Organization Details Last Updated DateTime 01/28/2023 23.1 kg/m2 97.9 [degF] 124 mm[Hg] 74 mm[Hg] Harshad Eller [place] [facility] 01/28/2023 17:38:45 Date Recorded Body weight Provider Name an d Address Organization Details Last Updated DateTime 01/28/2023 17845.618789 g Jimmie Gabriel MD [address] [place], [address], [place] [facility] 01/28/2023 17:43:30 Date Recorded Body height Body mass index (BMI) Body temperature Systolic blood pressure Diastolic blood pressure Provider Name and Address Organization Details Last Updated DateTime 152.4 cm 24.6 kg/m2 97.8 [degF] 126 mm[Hg] 76 mm[Hg] Ivon Sinclair [place] [facility] 15:56:32 Date Recorded Body weight Provider Name an d Address Organization Details Last Updated DateTime 02/25/2023 96558.093938 g Jana Todd CNM [address] [place], [address], [place] [facility] 02/25/2023 16:20:08 Date Recorded Body height Body mass index (BMI) Systolic blood pressure Diastolic blood pressure Provider Name and Address Organization Details Last Updated DateTime 03/11/2023 152.4 cm 22.7 kg/m2 110 mm[Hg] 74 mm[Hg] Monica Jara [place] [facility] 03/11/2023 10:09:12 Date Recorded Body weight Provider Name an d Address Organization Details Last Updated DateTime 03/11/2023 03352.29120 g Sole Tse [place] [facility] 06/10/2023 10:39:58 Date Recorded Body height Body mass index (BMI) Body weight Body temperature Systolic blood pressure Diastolic blood pressure Provider Name and Address Organization Details Last Updated DateTime 152.4 cm 24.1 kg/m2 12282.0 2 g 97.7 [degF] 108 mm[Hg] 72 mm[Hg] Richelle Flores [facility] 14:25:00 Social History Question Answer Notes LastModified by Organizat ion Details LastModified Time Tobacco Smoking Status Never Smoker Tramea Symone null, [facility] 08/15/2021 16:29:47 What Is Your Level Of Alcohol Consumption? Occasional Information not available 08/15/2021 How Many Times Per Week Do You Consume Alcohol? Less Than 1 Time Per Week Information not available 06/10/2023 If You Are , What Was Your Level Of Alcohol Consumption Prior To ? Occasional Information not available 12/29/2022 How Many Years Have You Consumed Alcohol? 15 [email or web address] Information not available 03/24/2022 Are You Blind Or Do You Have Difficulty Seeing? No Information not available 08/15/2021 Are You Currently Employed? Yes Information not available 03/24/2022 Are You Deaf Or Do You Have Serious Difficulty Hearing? No Information not available 08/15/2021 What Type Of Diet Are You Following? REGULAR Information not available 08/15/2021 Do You Or Have You Ever Used E-cigarettes Or Vape? Never Used Electronic Cigarettes [email or web address] Information not available 03/24/2022 What Is Your Occupation? [employer] Information not available 03/24/2022 How Many Children Do You Have? 2 [email or web address] Information not available 05/24/2021 Are There Any Occupational Health Risks Where You Work? 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 His Brother Just Purchased [facility] 2022 Information not available 01/28/2023 Are You Sexually Active? Yes Information not available 05/24/2021 Do You Use Any Illicit Or Recreational Drugs? No Information not available 08/15/2021 Do You Or Have You Ever Used Any Other Forms Of Tobacco Or Nicotine? No Information not available 06/10/2023 Sex: Unknown Functional Status Question Answer Note LastModified by Organizat ion Details LastModified Time What is your exercise level? Occasional Information not available 08/15/2021 Mental Status None recorded. Family History Relationship Description Onset Age of this Age Resolved Age Notes LastModified by Organization Details LastModified Time Father No current problems or disability [email or web address] Not available 05/10 10:52:38 Mother No current problems or disability [email or web address] Not available 05/10 10:52:38 Medical History Condition Response Other Cancer N High Blood Pressure N Colon Cancer N Cytomegalovirus N Hyperthyroidism N Herpes (HSV) N Breast Cancer N Blood Transfusion N MRSA N Lung Cancer N Hypothyroidism N Depression N Incontinence N Panic Attacks N Neurological Disorder N Deep Vein Thrombosis N Anxiety Disorder N Autoimmune disease N Arthritis N Tuberculosis/Positive PPD N Shingles N Polycystic Ovarian Syndrome Y Cervical Cancer N Chlamydia N Hematuria N Stroke N Varicosities N Crohn's Disease N Seasonal allergies N Alzheimer's/Dementia N COPD/Emphysema N HPV/Genital Warts N Endometriosis N IBS (Irritable Bowel Syndrome) Y History of Abnormal Pap Y High Cholesterol N Liver Disease N Kidney Infection N Fibromyalgia N Ulcer N Kidney Disease N HIV N Gallbladder disease N Sickle Cell Disease/Trait N Von Willebrand disease N ADD/ADHD N Eating Disorder N Anemia N Diabetes Mellitus (non-insulin dependent ) N Ovarian Problems N Multiple Sclerosis N Gonorrhea N Frequent Urinary Tract infections N Osteopenia N Headaches/migraines N GERD (reflux) N Ovarian Cancer N Diabetes (insulin dependent) N Seizures/Epilepsy N Fibroids N Heart Attack N Asthma N Lupus N Endometrial Cancer N Rubella N Blood Clotting Disorder N Bipolar Disorder N Diabetes Mellitus (during ) N Ulcerative Colitis N Hepatitis N Heart Disease N Pulmonary Embolism N RPR N Chicken Pox Y Osteoporosis N Gynecological History Statement/Question Response Flow Moderate Date of last HPV 05/23/2022 Date of LMP 11/12/2022 Duration of Flow (days) 6 Most Recent Mammogram Current Control Method Tubal Ligat ion Age at Menarche 12 Date of Last Colonoscopy Most Recent Bone Density Frequency of Cycle (Q days) 29 Date of Last Pap Smear 05/23/2022 Obstetrics History GPAL:G 6 P 2 0 4 2 Type Value Full Term 2 Spontaneous 4 Living 2 Total 6 Past Encounters Encounter ID Performer Location Encounter Start Date Encounter Closed Date Diagnosis/Indication Diagnosis SNOMED-CT Code Diagnosis ICD10 Code [id number] LOULOU Packer [facility] [address] [place] [address] 05/27/2021 15:53:22 05/27/2021 16:42:56 Contraception care management 597147450 Z30.9 [id number] Keiry romo, [facility] [address] [place] [address] 08/15/2021 16:13:38 08/16/2021 12:37:05 Inflammatory disorder of breast 956898724 N61.0 [id number] Denys Fowler Jewel, [facility] [address] [place] [address] 03/24/2022 16:00:52 03/24/2022 18:23:34 Gynecologic examination 10331888 Z01.419 Screening for malignant neoplasm of cervix 227869945 Z12.4 Depression screening 171 362220 Z13.31 [id number] Jana Todd, [facility] [address] [place] [address] 12/15/2022 09:33:40 12/15/2022 18:05:56 Amenorrhea 99613449 N91.0 N91.1 Z32.00 Recurrent miscarriage 10 7312265 N96 [id number] Jimmie Holloway, [facility] [address] [place] [address] 12/29/2022 14:42:51 12/30/2022 10:45:21 Uncertain viability of 714425455 O36.80X9 [id number] Jimmie Gabriel MD [facility] [address] [place] [address] 01/28/2023 17:02:11 01/29/2023 12:21:54 Routine care 704360359 Z34.01 Z34.81 O09.511 O09.521 Gestation period, 11 weeks 80883426 Z3A.11 Hyperemesi s gravidarum 66522922 O21.0 [id number] Jana Todd, [facility], [facility] [address] [place] [address] 02/25/2023 15:49:53 02/25/2023 17:49:29 Gestation period, 15 weeks 1168908 Z3A.15 Missed miscarriage 56572 004 O02.1 [id number] Jimmie Gabriel MD [facility] [address] [place] [address] 03/11/2023 09:44:24 03/11/2023 15:50:01 Postoperative visit 986040240 Z09 Secondary dysmenorrhea 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 N94.5 Menorrhagia 887430109 N9 2.0 Recurrent miscarriage 10 2403244 N96 [id number] Jimmie Gabriel MD [facility] [address] [place] [address] 06/10/2023 13:58:38 06/10/2023 15:40:18 Postoperative visit 107999439 Z09 Health Concerns Section Related Observation LastModified by Organization Detai ls LastModified Time None Recorded Concern Status LastModified by Organization Details LastModified Time None Recorded Advance Directives Directive None Recorded Payers Encounter Date Sequence Insurance Name Policy Number Policy Pina Covered Member ID Pina Member ID Guarantor Name 12/29/2022 1 [employer] - CHOICE (POS II) [id number] Nika N Day [id number] Nika Tami Day 01/28/2023 1 [employer] - CHOICE (POS II) [id number] Nika N Day [id number] Nika Tami Day 02/25/2023 1 [employer] - CHOICE (POS II) [id number] Nika N Day [id number] Nika Tami Day 03/11/2023 1 [employer] - CHOICE (POS II) [id number] Nika N Day [id number] Nika Tami Day 06/10/2023 1 [employer] - CHOICE (POS II) [id number] Nika N Day [id number] Nika Tami Day Notes Date Note Type Note Provider Name and Address Organization Details Recorded Time 12/29/2022 text/html Confirmation VisitReported bypatient.obstetrics and gynecologyLMP: (11/12/2022); no bleeding between periods; US IUP Confirmed; EDC (LMP): (08/19/2023) [id number]. Jimmie Holloway, [facility], [place], [address], [facility] 12/29/2022 15:22:06 01/28/2023 text/html wants to talk ab out the progesterone today. no other concerns or questions at this time. Jimmie Gabriel MD [address] [place] [address], [phone], [facility] 01/28/2023 18:29:39 02/25/2023 text/html OB ProblemReport ed bypatient.Associated Symptoms:no abdominal pain; no cramping; no bleeding; no vaginal discharge; no vaginal/vulvar itching or irritation; no headache; no dizziness; no breathlessnessNotes:n o back pain Jana Todd CNM [address] [place] [address], [phone], [facility] 02/25/2023 16:21:13 03/11/2023 text/html Post-OpReported bypatient.Onset/Timin g:date of surgery: (02/26/23) Quality:procedure: (D & C) Context:reason for procedure: (Miscarriage) Patient is here for a post op visit after her D & C, she is doing well. Jimmie Gabriel MD [address] [place] [address], [phone], [facility] 03/11/2023 10:46:56 06/10/2023 text/html Post-OpReported bypatient.Onset/Timin g:date of surgery: (05/28/2023) Quality:procedure: (Tubal ligation NV HYSTEROSCOPY ENDOMETRIAL ABLATION NV LAPAROSCOPY W/PLMT OCCLUSION DEVICE OVIDUCTS DILATION AND CURETTAGE WITH HYSTEROSCOPY - MELLISA ABLATION LAPAROSCOPIC BILATERAL TUBAL LIGATIONPOSSIBLE LAPAROSCOPIC BILATERAL SALPINGECTOMY) Context:reason for procedure: (VOLUNTARY STERILIZATION, MENORRHAGIA) Associated Symptoms:incision healing well; no fatigue; normal appetite; normal bowel function; no constipation; no nausea; no emesis; pain improving; no pain; no fever; no bleeding; no lower extremity edema/pain; no dysuria/urinary symptoms Jimmie Gabriel MD [address] [place] [address], [phone], [facility] 06/10/2023 14:46:16 OBGyn Episode Ob Episode Information Episode Created Date Number of Fetuses Patient Bloodtype Patient rh Status Prepregnancy Weight lbs Domestic Partner Domestic Partner Phone Father Name Coin Teller Status 04/26/19 22 1 DELETED Naif Calculation NAIF Calculation Method Initial Naif Date Initial Exam Date Initial Exam Provider Initial Ultrasound Date Last Menstrual Period Date Ultra Sound Weeks Gestation Conception by IVF Embryo Age at Transfer Date of Transfer 0 Eighteen To Twenty Week Naif Update Ultra Sound Date Fundal Height At Umbil Quickening Date Ultra Sound Latest Weeks Gestation Final Naif Confirmed By Final Naif Confirmed Date Final Naif Date Ultra Sound Latest Days Gestation 0 0 Menstrual History Last Menstrual Date Menses Monthly On Bcp Conception Prior Menses Frequency Hcg Plus Date Menarche Onset Age Delivery Information Delivery Date Delivery Type Labor Anesthesia Weeks Gestation Incision Type Labor Labor Length Hrs Delivered By Post Complications Tubal Sterilization Discharge Date Comments 7 None 38 false Discharge Information Feeding Method Contraceptive Method Maternal HG B and HCT Levels Ob Episode Information Episode Created Date Number of Fetuses Patient Bloodtype Patient rh Status Prepregnancy Weight lbs Domestic Partner Domestic Partner Phone Father Name Coin Teller Status 04/26/19 22 1 CLOSED Fetus Data First Name Last Name Admitted to NICU Weight (g) Sex Living Outcome Pediatric Complications Fetus ID Race Codes Race Delivery Type 3005.04 7 M [id number] Naif Calculation NAIF Calculation Method Initial Naif Date Initial Exam Date Initial Exam Provider Initial Ultrasound Date Last Menstrual Period Date Ultra Sound Weeks Gestation Conception by IVF Embryo Age at Transfer Date of Transfer 0 Eighteen To Twenty Week Naif Update Ultra Sound Date Fundal Height At Umbil Quickening Date Ultra Sound Latest Weeks Gestation Final Naif Confirmed By Final Naif Confirmed Date Final Naif Date Ultra Sound Latest Days Gestation 0 0 Menstrual History Last Menstrual Date Menses Monthly On Bcp Conception Prior Menses Frequency Hcg Plus Date Menarche Onset Age Delivery Information Delivery Date Delivery Type Labor Anesthesia Weeks Gestation Incision Type Labor Labor Length Hrs Delivered By Post Complications Tubal Sterilization Discharge Date Comments 8 274 false Discharge Information Feeding Method Contraceptive Method Maternal HG B and HCT Levels Ob Episode Information Episode Created Date Number of Fetuses Patient Bloodtype Patient rh Status Prepregnancy Weight lbs Domestic Partner Domestic Partner Phone Father Name Coin Teller Status 04/26/19 22 1 DELETED Naif Calculation NAIF Calculation Method Initial Naif Date Initial Exam Date Initial Exam Provider Initial Ultrasound Date Last Menstrual Period Date Ultra Sound Weeks Gestation Conception by IVF Embryo Age at Transfer Date of Transfer 0 Eighteen To Twenty Week Naif Update Ultra Sound Date Fundal Height At Umbil Quickening Date Ultra Sound Latest Weeks Gestation Final Naif Confirmed By Final Naif Confirmed Date Final Naif Date Ultra Sound Latest Days Gestation 0 0 Menstrual History Last Menstrual Date Menses Monthly On Bcp Conception Prior Menses Frequency Hcg Plus Date Menarche Onset Age Delivery Information Delivery Date Delivery Type Labor Anesthesia Weeks Gestation Incision Type Labor Labor Length Hrs Delivered By Post Complications Tubal Sterilization Discharge Date Comments 9 107 false Discharge Information Feeding Method Contraceptive Method Maternal HG B and HCT Levels Ob Episode Information Episode Created Date Number of Fetuses Patient Bloodtype Patient rh Status Prepregnancy Weight lbs Domestic Partner Domestic Partner Phone Father Name Coin Teller Status 04/26/19 22 1 DELETED Naif Calculation NAIF Calculation Method Initial Naif Date Initial Exam Date Initial Exam Provider Initial Ultrasound Date Last Menstrual Period Date Ultra Sound Weeks Gestation Conception by IVF Embryo Age at Transfer Date of Transfer 0 Eighteen To Twenty Week Naif Update Ultra Sound Date Fundal Height At Umbil Quickening Date Ultra Sound Latest Weeks Gestation Final Naif Confirmed By Final Naif Confirmed Date Final Naif Date Ultra Sound Latest Days Gestation 0 0 Menstrual History Last Menstrual Date Menses Monthly On Bcp Conception Prior Menses Frequency Hcg Plus Date Menarche Onset Age Delivery Information Delivery Date Delivery Type Labor Anesthesia Weeks Gestation Incision Type Labor Labor Length Hrs Delivered By Post Complications Tubal Sterilization Discharge Date Comments 0 64 false Discharge Information Feeding Method Contraceptive Method Maternal HG B and HCT Levels Ob Episode Information Episode Created Date Number of Fetuses Patient Bloodtype Patient rh Status Prepregnancy Weight lbs Domestic Partner Domestic Partner Phone Father Name Coin Teller Status 04/26/19 22 1 DELETED Naif Calculation NAIF Calculation Method Initial Naif Date Initial Exam Date Initial Exam Provider Initial Ultrasound Date Last Menstrual Period Date Ultra Sound Weeks Gestation Conception by IVF Embryo Age at Transfer Date of Transfer 0 Eighteen To Twenty Week Naif Update Ultra Sound Date Fundal Height At Umbil Quickening Date Ultra Sound Latest Weeks Gestation Final Naif Confirmed By Final Naif Confirmed Date Final Naif Date Ultra Sound Latest Days Gestation 0 0 Menstrual History Last Menstrual Date Menses Monthly On Bcp Conception Prior Menses Frequency Hcg Plus Date Menarche Onset Age Delivery Information Delivery Date Delivery Type Labor Anesthesia Weeks Gestation Incision Type Labor Labor Length Hrs Delivered By Post Complications Tubal Sterilization Discharge Date Comments 0 None false Discharge Information Feeding Method Contraceptive Method Maternal HG B and HCT Levels Ob Episode Information Episode Created Date Number of Fetuses Patient Bloodtype Patient rh Status Prepregnancy Weight lbs Domestic Partner Domestic Partner Phone Father Name Coin Teller Status 04/26/19 22 1 CLOSED Fetus Data First Name Last Name Admitted to NICU Weight (g) Sex Living Outcome Pediatric Complications Fetus ID Race Codes Race Delivery Type 2721.55 2 M [id number] Naif Calculation NAIF Calculation Method Initial Naif Date Initial Exam Date Initial Exam Provider Initial Ultrasound Date Last Menstrual Period Date Ultra Sound Weeks Gestation Conception by IVF Embryo Age at Transfer Date of Transfer 0 Eighteen To Twenty Week Naif Update Ultra Sound Date Fundal Height At Umbil Quickening Date Ultra Sound Latest Weeks Gestation Final Naif Confirmed By Final Naif Confirmed Date Final Naif Date Ultra Sound Latest Days Gestation 0 0 Menstrual History Last Menstrual Date Menses Monthly On Bcp Conception Prior Menses Frequency Hcg Plus Date Menarche Onset Age Delivery Information Delivery Date Delivery Type Labor Anesthesia Weeks Gestation Incision Type Labor Labor Length Hrs Delivered By Post Complications Tubal Sterilization Discharge Date Comments 1 271 false Discharge Information Feeding Method Contraceptive Method Maternal HG B and HCT Levels Ob Episode Information Episode Created Date Number of Fetuses Patient Bloodtype Patient rh Status Prepregnancy Weight lbs Domestic Partner Domestic Partner Phone Father Name Coin Teller Status 01/29/20 23 1 CLOSED Fetus Data First Name Last Name Admitted to NICU Weight (g) Sex Living Outcome Pediatric Complications Fetus ID Race Codes Race Delivery Type Demise [id number] Problems Problem Notes if PLTCs then tubal Problem Name Start Date End Date Resolution Snomed Code Not e Past history of molar [id number] send place nta to path Naif Calculation NAIF Calculation Method Initial Naif Date Initial Exam Date Initial Exam Provider Initial Ultrasound Date Last Menstrual Period Date Ultra Sound Weeks Gestation Conception by IVF Embryo Age at Transfer Date of Transfer 08/19/19 23 01/29/20 23 12/29/2022 11/12/2022 7 Eighteen To Twenty Week Naif Update Ultra Sound Date Fundal Height At Umbil Quickening Date Ultra Sound Latest Weeks Gestation Final Naif Confirmed By Final Naif Confirmed Date Final Naif Date Ultra Sound Latest Days Gestation 0 01/28/2023 08/19/19 24 0 Pre- Flowsheet Flowsheet Date 01/28/2023 Mendoza Score Blood Edema Fundus Height Fundus Units Glucose Ketones Leukocytes Nitrite Labor Signs Protein Cervic Dilation Cervic Effacement Cervic Station Type Weight in lbs Pre/Post Dialysis Refused Weight 118.813657497998 BP Diastolic BP Location Tested BP Systolic BP Type 74 124 Fetus Heart Rate Present A 150 Fetus Movement Comments decrease prometrium sloswly and feeling better, having another boy still on light duty Flowsheet Date 02/25/2023 Mendoza Score Blood Edema Fundus Height Fundus Units Glucose Ketones Leukocytes Nitrite Labor Signs Protein Cervic Dilation Cervic Effacement Cervic Station Type Weight in lbs Pre/Post Dialysis Refused Weight 126.153440141634 BP Diastolic BP Location Tested BP Systolic BP Type 76 126 Fetus Heart Rate Present Fetus Movement Comments No cardiac activity today. Shukri Gabriel in and will proceed with D&C tomorrow. Flowsheet Date 03/11/2023 Mendoza Score Blood Edema Fundus Height Fundus Units Glucose Ketones Leukocytes Nitrite Labor Signs Protein Cervic Dilation Cervic Effacement Cervic Station Type Weight in lbs Pre/Post Dialysis Refused With clothes 116.92081885949 BP Diastolic BP Location Tested BP Systolic BP Type 74 110 Fetus Heart Rate Present Fetus Movement Comments Menstrual History Last Menstrual Date Menses Monthly On Bcp Conception Prior Menses Frequency Hcg Plus Date Menarche Onset Age 1011/12/2022 Delivery Information Delivery Date Delivery Type Labor Anesthesia Weeks Gestation Incision Type Labor Labor Length Hrs Delivered By Post Complications Tubal Sterilization Discharge Date Comments 4 15 IUFD Discharge Information Feeding Method Contraceptive Method Maternal HG B and HCT Levels Ob Episode Information Episode Created Date Number of Fetuses Patient Bloodtype Patient rh Status Prepregnancy Weight lbs Domestic Partner Domestic Partner Phone Father Name Coin Teller Status 03/11/19 24 1 CLOSED Fetus Data First Name Last Name Admitted to NICU Weight (g) Sex Living Outcome Pediatric Complications Fetus ID Race Codes Race Delivery Type , Spontane ous [id number] Naif Calculation NAIF Calculation Method Initial Naif Date Initial Exam Date Initial Exam Provider Initial Ultrasound Date Last Menstrual Period Date Ultra Sound Weeks Gestation Conception by IVF Embryo Age at Transfer Date of Transfer 0 Eighteen To Twenty Week Naif Update Ultra Sound Date Fundal Height At Umbil Quickening Date Ultra Sound Latest Weeks Gestation Final Naif Confirmed By Final Naif Confirmed Date Final Naif Date Ultra Sound Latest Days Gestation 0 0 Menstrual History Last Menstrual Date Menses Monthly On Bcp Conception Prior Menses Frequency Hcg Plus Date Menarche Onset Age Delivery Information Delivery Date Delivery Type Labor Anesthesia Weeks Gestation Incision Type Labor Labor Length Hrs Delivered By Post Complications Tubal Sterilization Discharge Date Comments 7 8 Discharge Information Feeding Method Contraceptive Method Maternal HG B and HCT Levels Ob Episode Information Episode Created Date Number of Fetuses Patient Bloodtype Patient rh Status Prepregnancy Weight lbs Domestic Partner Domestic Partner Phone Father Name Coin Teller Status 03/11/19 24 1 CLOSED Fetus Data First Name Last Name Admitted to NICU Weight (g) Sex Living Outcome Pediatric Complications Fetus ID Race Codes Race Delivery Type , Spontane ous [id number] Naif Calculation NAIF Calculation Method Initial Naif Date Initial Exam Date Initial Exam Provider Initial Ultrasound Date Last Menstrual Period Date Ultra Sound Weeks Gestation Conception by IVF Embryo Age at Transfer Date of Transfer 0 Eighteen To Twenty Week Naif Update Ultra Sound Date Fundal Height At Umbil Quickening Date Ultra Sound Latest Weeks Gestation Final Naif Confirmed By Final Naif Confirmed Date Final Naif Date Ultra Sound Latest Days Gestation 0 0 Menstrual History Last Menstrual Date Menses Monthly On Bcp Conception Prior Menses Frequency Hcg Plus Date Menarche Onset Age Delivery Information Delivery Date Delivery Type Labor Anesthesia Weeks Gestation Incision Type Labor Labor Length Hrs Delivered By Post Complications Tubal Sterilization Discharge Date Comments 0 15 Discharge Information Feeding Method Contraceptive Method Maternal HG B and HCT Levels Ob Episode Information Episode Created Date Number of Fetuses Patient Bloodtype Patient rh Status Prepregnancy Weight lbs Domestic Partner Domestic Partner Phone Father Name Coin Teller Status 03/11/19 24 1 CLOSED Fetus Data First Name Last Name Admitted to NICU Weight (g) Sex Living Outcome Pediatric Complications Fetus ID Race Codes Race Delivery Type [id number] Naif Calculation NAIF Calculation Method Initial Naif Date Initial Exam Date Initial Exam Provider Initial Ultrasound Date Last Menstrual Period Date Ultra Sound Weeks Gestation Conception by IVF Embryo Age at Transfer Date of Transfer 0 Eighteen To Twenty Week Naif Update Ultra Sound Date Fundal Height At Umbil Quickening Date Ultra Sound Latest Weeks Gestation Final Naif Confirmed By Final Naif Confirmed Date Final Naif Date Ultra Sound Latest Days Gestation 0 0 Menstrual History Last Menstrual Date Menses Monthly On Bcp Conception Prior Menses Frequency Hcg Plus Date Menarche Onset Age Delivery Information Delivery Date Delivery Type Labor Anesthesia Weeks Gestation Incision Type Labor Labor Length Hrs Delivered By Post Complications Tubal Sterilization Discharge Date Comments 9 16 Discharge Information Feeding Method Contraceptive Method Maternal HG B and HCT Levels Ob Episode Information Episode Created Date Number of Fetuses Patient Bloodtype Patient rh Status Prepregnancy Weight lbs Domestic Partner Domestic Partner Phone Father Name Coin Teller Status 05/27/19 24 1 CLOSED Fetus Data First Name Last Name Admitted to NICU Weight (g) Sex Living Outcome Pediatric Complications Fetus ID Race Codes Race Delivery Type , Spontane ous Naif Calculation NAIF Calculation Method Initial Naif Date Initial Exam Date Initial Exam Provider Initial Ultrasound Date Last Menstrual Period Date Ultra Sound Weeks Gestation Conception by IVF Embryo Age at Transfer Date of Transfer 0 Eighteen To Twenty Week Naif Update Ultra Sound Date Fundal Height At Umbil Quickening Date Ultra Sound Latest Weeks Gestation Final Naif Confirmed By Final Naif Confirmed Date Final Naif Date Ultra Sound Latest Days Gestation 0 0 Menstrual History Last Menstrual Date Menses Monthly On Bcp Conception Prior Menses Frequency Hcg Plus Date Menarche Onset Age Delivery Information Delivery Date Delivery Type Labor Anesthesia Weeks Gestation Incision Type Labor Labor Length Hrs Delivered By Post Complications Tubal Sterilization Discharge Date Comments [address] ESTRADA d and c Discharge Information Feeding Method Contraceptive Method Maternal HG B and HCT Levels
--- OUTSIDE RECORDS SUMMARY | 2024-01-21 09:47 | XMS_ITS | Clinical Summary ---
Author Organization [facility] Address [address] [place] [address] Phone Care Team Providers Care Contract Administration Coordinator Name Role Phone WESTLEY ARANGO MD Primary Care Provider [phone] WESTLEY LACY MD Unavailable Unavailable Reason for Visit and Chief Complaint The Chief Complaint is: Exposure to COVID-19. Patient currently has no symptoms, The Chief Complaint is: Patient is not currently having symptoms. His son is in the ICU at a hospital in [place]. He is getting ready to go to [place] for a medical flight with his son to transfer patient to a hospital in [facility]. Patient is required to have a Negative COVID test before traveling, The Chief Complaint is: EXPOSED TO COVID Plan of Treatment - The options include close observation - Last Documented On 12/10/2019 5:04PM ; [facility] - Watch for signs/symptoms of infection, return to the clinic if seen - Last Documented On 12/10/2019 5:04PM ; [facility] Patient is to quarantine 14 days last exposure Call clinic for worsening symptoms or concerns Go to ED for severe difficulty breathing or lethargy - Last Documented On 12/10/2019 5:04PM ; [facility] Instructions to patient Watch for signs/symptoms of infection, return to the clinic if seen Last Documented On 0 10:46AM ; [facility] Assessments Includes: Assessments from this encounter Findings - Exposure to a viral disease - Last Documented On 12/10/2019 5:04PM ; [facility] Instructions Includes: Instructions from this encounter Instructions to patient Watch for signs/symptoms of infection, return to the clinic if seen Last Documented On 0 10:46AM ; [facility] Medical Equipment - Implanted Devices Includes: Current Devices No Medical Equipment Recorded Medications Includes: Medications discussed during this encounter and other current Medications No Medications Taken Medications Administered Includes: Administered Medications from this encounter No Administered Medications Recorded Vital Signs Includes: Vital Signs from this encounter Vital Name 12/10/2019 10:33A Pulse Rate-Sitting (bpm) 102 Temp-Oral (F) 98.7 Oxygen Saturation (%) 98 Last Documented: On 12/10/2019 10:33A M ; [facility] Results Includes: Results discussed during this encounter No Results Recorded For Specified Dates History of Present Illness Includes: History of Present Illness from this encounter CLARE ROSE is a 29 year old female. - Feeling fine - Not feeling tired - Not feeling poorly (malaise) - No fever - No chills - No headache - No sinus pain - No swollen glands in the neck - No eye symptoms - No ear symptoms - No nasal discharge - No postnasal drip - No nasal passage blockage (stuffiness) - No sore throat - No chest pain or discomfort - No palpitations - No dyspnea - No cough - No wheezing - Normal appetite - Appetite not decreased - No nausea - No vomiting - No abdominal pain - No diarrhea - No myalgias - No skin symptoms Denies fever, cough, SOB, sore throat, loss of taste/smell, chest tightness, fatigue, bodyaches, headache, n/v/d. Denies any recent travel. Pt presents to the clinic for a COVID test due to she was exposed to a co worker on Thursday. Pt denies any current sx but states that she needs a negative COVID test to return to work. Pt states that she is currently 20 weeks . Pt denies any abnormal related issues. Social History Description Last Updated No travel 12/10/2019 Last Documented On 0 5:04PM ; [facility] Smoking Status Unknown Procedures and Surgical History Includes: Procedures from this encounter Procedures Code Diagnosis Performing Provider Service L ocation Service Date review of medications documented 1160F Last Documented On 0 10:34AM ; [facility] Medical History Includes: Medical History addressed during this encounter Description Last Updated Exposure to a contagious disease 020 Last Documented On 0 5:04PM ; [facility] Family History Includes: Family History addressed during this encounter No Family History Recorded Review of Systems Includes: Review of Systems from this encounter Systemic: No systemic symptoms and no fever. Head: No head symptoms. Neck: No neck symptoms. Eyes: No eye symptoms. Otolaryngeal: No otolaryngeal symptoms. Cardiovascular: No cardiovascular symptoms. Pulmonary: No pulmonary symptoms. Gastrointestinal: No gastrointestinal symptoms. Genitourinary: No genitourinary symptoms. Endocrine: No endocrine symptoms. Hematologic: No hematologic symptoms. Musculoskeletal: No musculoskeletal symptoms. Neurological: No neurological symptoms. Psychological: No psychological symptoms. Skin: No skin symptoms. Mental Status Includes: Mental Status from this encounter No Mental Status Recorded Functional Status Includes: Functional Status from this encounter No Functional Status Recorded Physical Exam Includes: Physical Exam from this encounter Allergies Includes: Active Allergies No Known Allergies Encounters Encounter Provider Location Date Check-In Time Check-Out Time Diagnosis SICK VISIT YUE BAUTISTA PRODUCTION PAINTER-C [facility] 0 10:30AM 11:14AM Exposure To Contagious Viral Disease Insurance Includes: Active Insurance Policies Plan Name Member ID Group # Subscriber Relationship Effect sindy Dates 1 - AE [id number] Self Clinical Notes Includes: Clinical Notes from this encounter No Clinical Notes Recorded
--- OUTSIDE RECORDS SUMMARY | 2024-01-21 09:47 | XMS_ITS ---
Care Plan - [facility] Created on: January 21, 2024 GENIE ROSE : 1990 Sex: Female Author Organization [facility] Address [address] [place] [address] Phone Care Team Providers Care Literacy Teacher Name Role Phone WESTLEY ARANGO MD Primary Care Provider [phone] WESTLEY LACY MD Unavailable Unavailable
--- OUTSIDE RECORDS SUMMARY | 2024-01-21 09:47 | XMS_ITS | Patient Health Record ---
Author Organization [facility] Address [address] [place] [address] Care Team Providers Care Claim Investigator Name Role Phone Jimmie Adrian Primary Care Provider Bautista See [phone] Allergies Allergen (clinical drug ingredient) Drug/Non Drug Allergy documented on EMR Reaction Allergy Type Onset Date Status morphine Morphine hives Drug Allergy Active Penicillin anaphylaxis Drug Allergy Acti ve Results Component Value Reference Range Notes MILK (F2) IGE Reviewed date:10/08/2023 12:29:34 PM Interpretation:Abnormal Performing Lab:[facility], [address] [place], [phone] Mainor Hidalgo MD Notes/Report: NON-FASTING; NON-FASTING COW'S MILK (F2) IGE 0.40 CLASS 1 IMMUNOGLOBULIN E Reviewed date:10/08/2023 12:28:46 PM Interpretation:Normal Performing Lab:[facility], [address] [place], [address] Mainor Hidalgo MD Notes/Report: NON-FASTING; NON-FASTING IMMUNOGLOBULIN E 55 <KC=805 kU/L INTERPRETATION Reviewed date:10/08/2023 12:29:44 PM Interpretation:Interpretation Performing Lab:[facility], [address] [place], [phone] Mainor Hidalgo MD Notes/Report: NON-FASTING; NON-FASTING INTERPRETATION Specific Level of Allergen IGE Class kU/L Specific IGE Antibody ----- --------- 0 <0.10 Absent/Undetectable 0/1 0.10-0.34 Very Low Level 1 0.35-0.69 Low Level 2 0.70-3.49 Moderate Level 3 3.50-17.4 High Level 4 17.5-49.9 Very High Level 5 50-100 Very High Level 6 >100 Very High Level The clinical relevance of allergen results of 0.10-0.34 kU/L are undetermined and intended for specialist use. Allergens denoted with a include results using one or more analyte specific reagents. In those cases, the test was developed and its analytical performance characteristics have been determined by [facility]. It has not been cleared or approved by the U.S. Food and Drug Administration. This assay has been validated pursuant to the CLIA regulations and is used for clinical purposes. MILK COMPONENT PANEL Reviewed date:10/08/2023 12:28:34 PM Interpretation:Abnormal Performing Lab:[facility], [address] [place], [address] Mainor Hidalgo MD Notes/Report: NON-FASTING; NON-FASTING ALPHA-LACTALBUMIN (F76) IGE 0.29 CLASS 0/1 BETA-LACTOGLOBULIN (F77) IGE 0.31 CLASS 0/1 CASEIN (F78) IGE 0.18 CLASS 0/1 Positive cow's milk component IgE results may be clinically significant even if quantification levels (kU/L) are low. Theo d 8 (casein) is resistant to heat denaturation and IgE reactivity to this milk component is associated with allergic reactions to both raw and cooked milk, even in baked goods. Theo d 4 (alpha-lactalbumin) and Theo d 5 (beta-lactoglobulin) are relatively susceptible to heat denaturation. While IgE reactivity to Theo d 4 and/or Theo d 5 are associated with allergic reactions to raw milk, in baked goods, milk may be tolerated. Children with IgE reactivity directed primarily to Theo d 4 and Theo d 5 are more likely to outgrow their cow's milk allergy than children with IgE reactivity directed primarily to Theo d 8. Additional information can be found at [email or web address].Infinite.ly ALPHA GAL PANEL Reviewed date:10/08/2023 12:29:13 PM Interpretation:Abnormal Performing Lab:[place], [facility], [address], [place], [address] Mainor Hidalgo MD Notes/Report: NON-FASTING; NON-FASTING BEEF (F27) IGE 0.23 CLASS 0/1 MCCLAIN (F88) IGE <0.10 CLASS 0 PORK (F26) IGE <0.10 CLASS 0 GALACTOSE ALPHA 1,3 GALACTOS E IGE 0.25 <0.10 kU/L Results above 0.1 kU/L indicate an allergen-specific IgE sensitization to xlkaqqlri-k-4,3-galactose, and such patients are at risk for delayed allergic reactions following beef, pork, or mcclain consumption. Circulating IgE antibodies may remain undetectable despite a convincing clinical history because these antibodies may be directed towards allergens revealed or altered during industrial processing, cooking, or digestion and therefore do not exist in the original food for which the patient is tested. Sometimes individuals diagnosed with chronic urticaria may develop IgE antibodies directed against human thyroglobulin. Such antibodies may cross-react with the bovine thyroglobulin used in ImmunoCAP(R) Allergen o215, alpha-Gal, leading to a false-positive test result. A definitive diagnosis should be based on the evaluation of both clinical and laboratory findings and not on any single diagnostic method. Additional information can be found at [email or web address]://www.Infinite.ly Reason For Referral No Information Medications Medication SIG (Take, Route, Frequency, Duration) [...] Question Answer Notes Tobacco use: Former smoker Problems Problem Type SNOMED Code ICD Code Onset Dates Problem Status W/U Status Risk Notes Problem Chronic allergic conjunctivitis (63242386) Other chronic allergic conjunctivitis (H10.45) Active confirmed Problem Allergic rhinitis caused by pollen (disorder) (07760020) Allergic rhinitis due to pollen (J30.1) Active confirmed Problem Allergic rhinitis (50341393) Other allergic rhinitis (J30.89) Active confirmed Problem Allergic rhinitis caused by animal hair and dander (073239186169850) Allergic rhinitis due to animal (cat) (dog) hair and dander (J30.81) Active confirmed Problem Allergy to penicillin (46391754) Allergy status to penicillin (Z88.0) Active confirmed Problem Allergy to meat (finding) (129717755) 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) Active confirmed Vital Signs Oximetry 100 % 11/09/2023 Blood pressure diastolic 82 mm Hg 11/09/2023 Height 60 in 11/09/2023 Blood pressure systolic 126 mm Hg 11/09/2023 Weight 125.6 lbs 11/09/2023 BMI 24.53 kg/m2 11/09/2023 Encounters Encounter Location Date Provider Diagnosis [facility] [address] [place] [phone] 09/29/2023 Bautista Greff Allergic rhinitis du e to pollen J30.1 ; Allergy to mammalian meats Z91.014 ; Allergic rhinitis due to animal (cat) (dog) hair and dander J30.81 ; Other allergic rhinitis J30.89 ; Other chronic allergic conjunctivitis H10.45 and Allergy status to penicillin Z88.[address] [employer] [address] [address] 11/09/2023 Bautista Greff Allergic rhinitis du e to pollen J30.1 ; Allergy to mammalian meats Z91.014 ; Allergic rhinitis due to animal (cat) (dog) hair and dander J30.81 ; Other allergic rhinitis J30.89 ; Other chronic allergic conjunctivitis H10.45 and Allergy status to penicillin Z88.0 Assessments Encounter Date Diagnosis (ICD Code) Assessment Notes Treatment Notes Treatment Clinical Notes Section Notes 09/29/2023 Allergic rhinitis due to pollen (ICD-10 - J30.1) Given the history and symptoms, skin testing was performed to common aeroallergens to determine atopic status. clearly suffers from atopic disease based upon our skin testing and clinical history. Accordingly, we have introduced a new, aggressive medication regimen, discussed nasal washes and allergy-specific avoidance measures. We also discussed adjunctive therapies including subcutaneous, specific allergen immunotherapy as relates to the treatment and prevention of atopic disease. They are currently considering the risks, benefits and alternatives to this care. Risks: bleeding, infection, allergic reaction, anaphylaxis; Benefits: reduced need for medications, improved symptoms, disease modification. Alternatives: watch/wait, change medication regimen, improve allergy avoidance measures. 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 She reprots occasional flat, red itchy spots that correlate on days of eating mammalian meats, but otherwise without other signs of systemic symptoms. Recent alpha-gal panel with PCP elevated at 0.4. Given consisitent issues with milk and elelvated alpha-gal level, SPT was perfromed to milk, beef, pork, and mcclain showing only borderline + to pork. Will plan on obtaining ImmunoCAPs to the above along with repeat alpha gal panel. Histroy is not completely typical with what I would expect with alpha-gal given GI symtpoms typicall occur within an hour of ingestion as opposed to 2-6 hours after. Regardless. I advised absolute avoidace of dairy products and all mammalian meats moving forward. AIE education given. Keep AIE on hand at all times. FAP formulated and reviewed. Return in one month for E&M 11/09/2023 Allergic rhinitis due to pollen (ICD-10 [...] was performed to milk, beef, pork, and mcclain showing only borderline + to pork. ImmunoCAP [...] as an adjunctive treatment to current regimen 09/29/2023 Allergic rhinitis due to animal (cat) (dog) hair and dander (ICD-10 - J30.81) Follow allergen avoidance, meds and consider SCIT as an adjunctive treatment to current regimen 09/29/2023 Other allergic rhinitis (ICD-10 - J30.89) Follow [...] and consider SCIT as an adjunctive measure 09/29/2023 Other chronic allergic conjunctivitis (ICD-10 - H10.45) Given ocular signs and symptoms I encouraged allergy avoidance measures and meds as above. If symptoms persist, consider adding additional medications including intraocular antihistamine/mas t cell stabilizer, PRN and consider SCIT as an adjunctive measure 11/09/2023 Allergy status to penicillin (ICD-10 - Z88.0) Reports lips turning blue after taking PCN at 6 months old. Treated at [facility] but unsure of other details. She has avoided PCN. Would advise PCN. Otherwise continue absolute avoidance 09/29/2023 Allergy status to penicillin (ICD-10 - Z88.0) Reports lips turning blue after taking PCN at 6 months old. Treated at [facility] but unsure of other details. She has avoided PCN. Would advise PCN. Otherwise continue absolute avoidance Plan Of Treatment Next Appt Details Provider Name:Bautista Negro Denis jewell, 05/03/2024 04:15:00 PM, [address] [facility], [address], [place], [address], Insurance Providers Payer Name Payer Address Payer Phone Subscriber Number Group Number Insured Name Patient Relationship to Insured Coverage Start Date Coverage End Date [employer] Choice POS II [address] [place] [address] [id number] MarisKona Self - patient is the insured 1 Medical (General) History Medical History History ICD Code Allergy to mammalian meats Z91.014 Allergic rhinitis due to pollen J30.1 Allergic rhinitis due to animal (cat) (d og) hair and dander J30.81 Other allergic rhinitis J30.89 Other chronic allergic conjunctivitis H1 0.45 Allergy status to penicillin Z88.0 Surgical History Surgery Date(Month/Year) Tonsillectomy 1992 adenoidectomy 1992,1997,2008 lymph node removal 2016 D & C 2019,2021,2022 tubal ligation 2023 2023 2023
--- OUTSIDE RECORDS SUMMARY | 2024-01-21 09:48 | XMS_ITS ---
Author Organization [facility] Address [address] [place] [address] Phone Care Team Providers Care Garment Manufacturer Name Role Phone WESTLEY ARANGO MD Primary Care Provider [phone] WESTLEY LACY MD Unavailable Unavailable Plan of Treatment Findings Encounter Date The options include close observation SI CK VISIT with YUE A LILY DIETARY AIDE TEACHER-C 12/10/2019 Last Documented On 0 5:04PM ; [facility] Watch for signs/symptoms of infection, return to the clinic if seen SICK VISIT with YUE A LILY DIETARY AIDE TEACHER-C 12/10/2019 Last Documented On 0 5:04PM ; [facility] Instructions to patient Watch for signs/symptoms of infection, return to the clinic if seen Last Documented On 0 10:46AM ; [facility] Assessments Includes: Assessments for all patient encounters Findings Encounter Date Exposure to a viral disease SICK VISIT with TRAC IE A LILY DIETARY AIDE TEACHER-C 12/10/2019 Last Documented On 0 5:04PM ; [facility] Instructions Includes: Instructions for all patient encounters Instructions to patient Watch for signs/symptoms of infection, return to the clinic if seen Last Documented On 0 10:46AM ; [facility] Medical Equipment - Implanted Devices Includes: Current [...] 12/10/2019 Last Documented On 0 5:04PM ; [facility] Smoking Status Unknown Medical History Includes: Medical History in patient's chart Description Last Updated Exposure to a contagious disease 020 Last Documented On 0 5:04PM ; [facility] Family History Includes: Family [...] Relationship Effect sindy Dates 1 - [employer] [id number] GENIE Yip DAY Self Clinical Notes Includes: Signed Clinical Notes starting from 02/28/2022 No Clinical Notes Recorded
--- OUTSIDE RECORDS SUMMARY | 2024-01-21 09:48 | XMS_ITS | Clinical Summary ---
Author Organization [facility] Address [address] [place] [address] Phone Care Team Providers Care Fur Dry Cleaner Hand Name Role Phone WESTLEY ARANGO MD Primary Care Provider [phone] WESTLEY LACY MD Unavailable Unavailable Reason for Visit and Chief Complaint The Chief Complaint is: Exposure to COVID-19. Patient currently has no symptoms, The Chief Complaint is: Patient is not currently having symptoms. His son is in the ICU at a hospital in [place]. He is getting ready to go to [place] for a medical flight with his son to transfer patient to a hospital in [facility]. Patient is required to have a Negative COVID test before traveling, The Chief Complaint is: EXPOSED TO COVID Plan of Treatment - The options include close observation - Last Documented On 12/10/2019 5:04PM ; [facility] - Watch for signs/symptoms of infection, return to the clinic if seen - Last Documented On 12/10/2019 5:04PM ; [facility] Patient is to quarantine 14 days last exposure Call clinic for worsening symptoms or concerns Go to ED for severe difficulty breathing or lethargy - Last Documented On 12/10/2019 5:04PM ; [facility] Instructions to patient Watch for signs/symptoms of infection, return to the clinic if seen Last Documented On 0 10:46AM ; [facility] Assessments Includes: Assessments from this encounter Findings - Exposure to a viral disease - Last Documented On 12/10/2019 5:04PM ; [facility] Instructions Includes: Instructions from this encounter Instructions to patient Watch for signs/symptoms of infection, return to the clinic if seen Last Documented On 0 10:46AM ; [facility] Medical Equipment - Implanted Devices Includes: Current [...] Last Documented: On 12/10/2019 10:33A M ; [facility] Results Includes: Results discussed during this encounter [...] 12/10/2019 Last Documented On 0 5:04PM ; [facility] Smoking Status Unknown Procedures and Surgical History Includes: Procedures from this encounter Procedures Code Diagnosis Performing Provider Service L ocation Service Date review of medications documented 1160F Last Documented On 0 10:34AM ; [facility] Medical History Includes: Medical History addressed during this encounter Description Last Updated Exposure to a contagious disease 020 Last Documented On 0 5:04PM ; [facility] Family History Includes: Family History [...] Check-Out Time Diagnosis SICK VISIT YUE BAUTISTA FORENSIC DOCUMENT EXAMINER-C [facility] 0 10:30AM 11:14AM Exposure To Contagious Viral Disease Insurance Includes: Active Insurance Policies Plan Name Member ID Group # Subscriber Relationship Effect sindy Dates 1 - AE [id number] Self Clinical Notes Includes: Clinical Notes from this encounter No Clinical Notes Recorded
--- OUTSIDE RECORDS SUMMARY | 2024-01-21 09:48 | XMS_ITS ---
Care Plan - [facility] Created on: January 21, 2024 GENIE ROSE : 1990 Sex: Female Author Organization [facility] Address [address] [place] [address] Phone Care Team Providers Care Physical Chemistry Teacher Name Role Phone WESTLEY ARANGO MD Primary Care Provider [phone] WESTLEY LACY MD Unavailable Unavailable
[2024-01-21 10:04] VITALS: BP 118/75; RESP 16; TEMP 36.7; O2SAT 100
[2024-01-21 10:43] LABS: EDSTREPNEGPOS1 Negative (Negative)
--- NOTE | 2024-01-21 11:39 | ED_ITS ---
HPI - URI/Sore Throat General Chief Complaint: Upper Respiratory Infection Stated Complaint: Sore Throat Time Seen by Provider: 01/21/24 11:30 Source: patient, RN notes reviewed and old records reviewed Mode of arrival: ambulatory Limitations: no limitations History of Present Illness HPI Narrative: 34 year old female who presents to [facility] care with complaints of sore throat with uvula red and swollen and petechiae noted to top of back of throat. with painful swallowing for the past 2 days. Patient reports that she has 2 children at home with strep throat at this time and thinks she also has strep.Patient r eports painful swallowing, has taken Ibuprofen and Tylenol for her discomfort no fevers noted. MD elicited complaint: sore throat Onset (ago): day(s) (2) Pain scale (0-10): 6 Able to tolerate fluids by mouth: Yes Treatments prior to arrival: acetaminophen and ibuprofen Related Data Home Medications ?Medication ?Instructions ?Recorded ?Confirmed ?Last Taken ?Type epinephrine 0.3 mg/0.3 mL 01/21/24 Unknown History injection, auto-injector (Auvi-Q) etonogestrel 0.12 mg-ethinyl vag ring vaginal 01/21/24 Unknown History estradiol 0.015 mg/24 hr vaginal ring (NuvaRing) Allergies Allergy/AdvReac Type Severity Reaction Status Date / Time Penicillins Allergy Severe Anaphylactic Verified 01/21/24 10:01 Shock nickel Allergy Unknown Verified 01/21/24 10:01 morphine AdvReac Intermediate Chills Verified 01/21/24 10:01 mammal by products Allergy Severe Anaphylaxis Uncoded 01/21/24 10:26 Review of Systems Review of Systems: CONSTITUTIONAL: Denies malaise, chills, sweats, or fever. EYES: Denies visual changes, redness, or discharge. ENT: Reports no rhinorrhea, congestion, sinus pain,no otalgia and positive for sore throat. CARDIOVASCULAR: Denies chest pain, palpitations, or edema. RESPIRATORY: Reports no cough.? Denies dyspnea. GASTROINTESTINAL: Denies abdominal pain, nausea, vomiting, diarrhea SKIN: Denies rash or itching. MUSCULOSKELETAL: Denies myalgia. NEUROLOGIC: Denies headache. All systems reviewed & are unremarkable except as noted in HPI and below PMFSH Past Medical History Medical History Alpha-gal syndrome Cyst, breast solitary outside of breast next to nipple Surgical History Surgical History History of lymph node excision History of nasal surgery Turbinectomy History of tonsillectomy and adenoidectomy History of dilatation and curettage Social History Social History Smoking status: Never smoker Alcohol intake: current Alcohol use details: rare social Substance use: never Substance use type: does not use Living arrangements: with family Gender identity (if verbalized by the patient): Female Comments At time of signature, agree with nursing past medical, surgical, social and family history. There is no relevant family history pertinent to the presenting complaint Exam Narrative: GENERAL: Well-appearing, well-nourished, and in no acute distress. HEAD: Normocephalic EYES: PERRLA, conjunctivae clear ENT: Nares clear, turbinates edematous and erythematous, clear discharge. Mucous membranes moist. TM pearly oreilly with dull light reflex bilaterally; no tragal tenderness. Oropharynx erythematous with petechiae top of throat. Tonsils not present and throat without exudate, no drooling, no hoarseness, no trismus, uvula midline red irritated. painful swallowing NECK: Supple. No lymphadenopathy CHEST: Clear to auscultation, breath sounds equal. No wheezing, rhonchi, rales, or stridor. No respiratory distress, speaks in full sentences. SAO2 100% on room air HEART: Regular rate and rhythm. No murmur heard. SKIN: Warm, dry, no rash. NEURO: Alert and oriented x3. PSYCH: Normal mood and affect Course Course Emergency Course: Patient is aware of diagnosis, understands and agrees to treatment plan.? Anticipatory guidance given.? Patient agrees to follow-up as directed and is aware of reasons to seek care at the emergency department. Portions of this record may have been created with voice recognition software Level of Care: Express Care Visit Vital Signs Vital signs: Vital Signs Temperature 36.7 C 01/21/24 10:04 Respiratory Rate 16 01/21/24 10:04 Blood Pressure 118/75 01/21/24 10:04 Pulse Oximetry 100 01/21/24 10:04 Oxygen Delivery Room Air 01/21/24 10:04 Temperature 36.7 C 01/21/24 10:04 Respiratory Rate 16 01/21/24 10:04 Blood Pressure 118/75 01/21/24 10:04 Pulse Oximetry 100 01/21/24 10:04 Oxygen Delivery Room Air 01/21/24 10:04 Reviewed MDM - URI/Sore Throat MDM Narrative Medical decision making narrative: Differential diagnosis considered: Cortés virus, strep pharyngitis, allergic rhinitis, upper respiratory tract infection, sinusitis, rhinosinusitis, nasopharyngitis. viral pharyngitis, otitis media, otitis externa, pneumonia, bronchitis, viral cough syndrome, viral syndrome, and influenza.? Exam findings show no acute concerns or changes; patient is non-toxic appearing and is in no distress.? Patient is appropriate for outpatient treatment and follow-up. Differential Diagnosis Differential diagnosis: Likely upper respiratory infection, pharyngitis and other (strep pharyngitis, uvulitis) Medical Records Attestation: I reviewed the patient's medical records. Lab Data Attestation: I reviewed the patient's lab results. Lab results narrative: strep screen negative culture sent Labs: Lab Results 01/21/24 Range/Units 10:41 POC Grp A Strep Screen Negative (Negative) Critical Care Time Critical Care Time Critical Care Time: No Discharge Plan Discharge Clinical Impression: Exposure to group A Streptococcus Acute pharyngitis Qualifiers: Pharyngitis/tonsillitis etiology: unspecified etiology Qualified Code(s): J02.9 - Acute pharyngitis, unspecified Patient Disposition: Home, Self-Care Condition: Stable Instructions: Antibiotic Form, Pharyngitis (ED) Additional Instructions: . Take the entire course of antibiotics. Throw away your current toothbrush and begin using a new toothbrush in 48 hours in order to prevent re-infection. Sanitize all reusable water bottles . Do not share items with others. Salt water gargles may alleviate some of the throat discomfort. You can take Tylenol or ibuprofen per the package instructions for pain/fever. If your symptoms persist, change or worsen significantly before you can contact your personal physician then please, without delay, go to the emergency department for further evaluation. Follow-up with PCP in 7-10 days or sooner if needed Patient Language: Serbian Prescriptions: New azithromycin 250 mg tablet See Rx Instructions .ROUTE .COMPLEX Qty: 6 0RF Rx Instructions: For 250 mg dose pack: take 500 mg today (day 1), then 250 mg for 4 days (days 2-5) No Action doxycycline hyclate 100 mg capsule 100 mg PO BID 12 Days Qty: 24 0RF epinephrine [Auvi-Q] 0.3 mg/0.3 mL auto-injector etonogestrel-ethinyl estradiol [NuvaRing] 0.12-0.015 mg/24 hr ring VAGINAL Follow-up/Referrals: Nguyễn,Jimmie Queen MD [Primary Care Provider] - Time of Disposition: 11:54 Quality Kirt Coma Scale Eyes: Open Verbal: Oriented and Alert Motor: Follows Commands [place] Coma Total Score: 15
== END 2024-01-21 12:00 | disposition home or self-care (01) ==
PROVIDERS: Emergency Provider Registered Nurse; PCP Internal Medicine
DX: J02.9 Acute pharyngitis, unspecified (principal); Z20.818 Contact with and (suspected) exposure to other bacterial communicable diseases; Z91.014 Allergy to mammalian meats
CPT/HCPCS: 87081; 87880; 99213; G0463

== ENCOUNTER 2024-08-08 18:55 | Emergency (ER) | payer OTHER, SELFPAY ==
--- OUTSIDE RECORDS SUMMARY | 2024-08-08 18:57 | XMS_ITS | Data Portability ---
Author Organization [employer] , [facility] Address [address] [place] [address] Assessment No assessment recorded. Plan of Treatment Reminders Order Date Submit Date Provider Last Modified By Organization Details Last Modified Time Details Appointments None recorded. Lab hemoglobin A1c, QN, blood 2022 023 [facility], [address] [place] [address], [address], 3 12:13:54 culture, urine 2022 023 [facility], [address], [address], [place], [address], 3 16:28:17 varicella-z annalee igg Ab screen, serum 2022 023 [facility], [address], [address], [place], [address], 3 16:28:08 hemoglobino sharita profile, blood 2022 023 [facility], [address], [address], [place], [address], 3 16:28:09 antibody screen, serum or plasma 2022 023 [facility], [address] [facility], [place], [address], 3 16:28:10 abo group + rh type, blood 2022 023 [facility], [address] [place], [address], 3 16:28:10 CBC w/ auto diff 2022 023 [facility], [address] [place], [address], 3 12:35:45 CT + NG DNA, PCR, unspecified specimen 2022 023 [facility], [address] [place], [address], 3 14:40:40 drug of abuse panel, urine 2022 023 [facility], [address] [place], [address], 3 12:29:37 obstetric screen + HIV, serum or blood 2022 023 [facility], [address] [place], [address], 3 13:27:25 Referral None recorded. Procedures None recorded. Surgeries None recorded. Imaging None recorded. Medication Orders Prometrium 100 mg capsule [address], [address] [place], [address], 4 15:56:46 Patient TargetsNo targets recorded. Patient Instructions Encounter Date Encounter Id Patient Instructions Last Modified By Organization Details Last Modified Time 06/06/2024 [id number] body mass index: care instructions Not available 06/06/2024 17:32:19 learning about control Not available 06/06/2024 17:32:19 Reason for Referral None Reported. Results Created Date Observation Date Name Description Value Unit Range Abnormal Flag Note LastModifiedBy Organization Detail LastModifiedTime 01/26/20 23 01/25/2023 [UNIT Y] ANEUP LOIDY NIPT fraction 10.8% normal Not Available [facility] [address], [place], [address], 01/25/2023 17:06:39 01/26/20 23 01/25/2023 [UNIT Y] ANEUP LOIDY NIPT sex chromosome aneuploidy NOT DETECT ED normal Not Available [facility] [address], [place], [address], 01/25/2023 17:06:39 01/26/20 23 01/25/2023 [UNIT Y] ANEUP LOIDY NIPT monosomy X LOW RISK <1 in 10,000 normal Not Available [facility] [address], [place], [address], 01/25/2023 17:06:39 01/26/20 23 01/25/2023 [UNIT Y] ANEUP LOIDY NIPT trisomy 13 LOW RISK <1 in 10,000 normal Not Available [facility] [address], [place], [address], 01/25/2023 17:06:39 01/26/20 23 01/25/2023 [UNIT Y] ANEUP LOIDY NIPT trisomy 18 LOW RISK <1 in 10,000 normal Not Available [facility] [address], [place], [address], 01/25/2023 17:06:39 01/26/20 23 01/25/2023 [UNIT Y] ANEUP LOIDY NIPT trisomy 21 LOW RISK <1 in 10,000 normal Not Available [facility] [address], [place], [address], 01/25/2023 17:06:39 01/26/20 23 01/25/2023 [UNIT Y] ANEUP LOIDY NIPT sex MALE normal Not Available [facility] [address], [place], [address], 01/25/2023 17:06:39 01/26/20 23 01/25/2023 [UNIT Y] ANEUP LOIDY NIPT gestation SINGLE TON normal Not Available [facility] [address], [place], [address], 01/25/2023 17:06:39 01/26/20 23 01/25/2023 [UNIT Y] ANEUP LOIDY NIPT for detailed report, see pdf See PDF normal Not Available [facility] [address], [place], [address], 01/25/2023 17:06:39 02/04/20 23 02/03/2023 [UNIT Y] MORGAN Molina sickle cell disease/beta -thalassemia /hemoglobino pathies carrier screen NEGATI VE normal Not Available [facility] [address], [place], [address], 02/03/2023 14:49:16 02/04/20 23 02/03/2023 [UNIT Y] MORGAN Molina alpha-thalas semia carrier screen NEGATI VE normal Not Available [facility] [address], [place], [address], 02/03/2023 14:49:16 02/04/20 23 02/03/2023 [UNIT Y] MORGAN Molina cystic fibrosis carrier screen NEGATI VE normal Not Available [facility] [address], [place], [address], 02/03/2023 14:49:16 02/04/20 23 02/03/2023 [UNIT Y] MORGAN Molina spinal muscular atrophy carrier screen NEGATI VE 2 SMN1 copies , SNP not presen t normal Not Available [facility] [address], [place], [address], 02/03/2023 14:49:16 02/04/20 23 02/03/2023 [UNIT Y] MORGAN Molina for detailed report, see pdf See PDF normal Not Available [facility] [address], [place], [address], 02/03/2023 14:49:16 01/29/20 23 01/29/2023 HEMOG LOBIN A1C hemoglobin A1C 5.1 % <5.7 normal The refer ence range for HbA1c is indic ated in the table below . Sugge sted Diagn osis =6.5% Consi stent with diabe keiko 5.7 6.4% Consi stent with incre ased risk for diabe keiko (pred iabet ic) <5.7% Consi stent with the absen ce of diabe keiko Not Available [facility] [address] [place], [address], 01/29/2023 12:13:54 01/29/20 23 01/29/2023 DRUG ABUSE PANEL 7 W/CON FIRM amphetamines Negati ve negati ve normal Not Available [facility] [address] [place], [address], 01/29/2023 12:29:37 01/29/20 23 01/29/2023 DRUG ABUSE PANEL 7 W/CON FIRM barbiturates Negati ve negati ve normal Not Available [facility] [address] [place], [address], 01/29/2023 12:29:37 01/29/20 23 01/29/2023 DRUG ABUSE PANEL 7 W/CON FIRM benzodiazepi daphne Negati ve negati ve normal Not Available [facility] [address] [place], [address], 01/29/2023 12:29:37 01/29/20 23 01/29/2023 DRUG ABUSE PANEL 7 W/CON FIRM cocaine metabolites Negati ve negati ve normal Not Available [facility] [address] [place], [address], 01/29/2023 12:29:37 01/29/20 23 01/29/2023 DRUG ABUSE PANEL 7 W/CON FIRM cannabinoids Negati ve negati ve normal Not Available [facility] [address] [place], [address], 01/29/2023 12:29:37 01/29/20 23 01/29/2023 DRUG ABUSE PANEL 7 W/CON FIRM methadone Negati ve. negati ve normal Not Available [facility] [address] [place] [address], [address], 01/29/2023 12:29:37 01/29/20 23 01/29/2023 DRUG ABUSE PANEL 7 W/CON FIRM opiates Negati ve negati ve normal Not Available [facility] [address] [place] [address], [address], 01/29/2023 12:29:37 01/29/20 23 01/29/2023 DRUG ABUSE PANEL 7 W/CON FIRM creatinine, urine 27 mg/dL 20 - 275 normal Not Available [address], [address], 01/29/2023 12:29:37 01/29/20 23 01/29/2023 CBC (INCL UDES DIFF/ PLT) WBC 8.2 thous and/u L 4.0 - 9.8 normal Not Available [address], [address], 01/29/2023 12:35:45 01/29/20 23 01/29/2023 CBC (INCL UDES DIFF/ PLT) RBC 4.0 chuck on/uL 3.9 - 4.9 normal Not Available [facility] [address] [place] [address], [address], 01/29/2023 12:35:45 01/29/20 23 01/29/2023 CBC (INCL UDES DIFF/ PLT) hemoglobin 11.5 g/dL 11.8 - 14.8 low Not Available [facility] [address] [place] [address], [address], 01/29/2023 12:35:45 01/29/20 23 01/29/2023 CBC (INCL UDES DIFF/ PLT) hematocrit 34.6 % 35.5 - 44.0 low Not Available [facility] [address] [place] [address], [address], 01/29/2023 12:35:45 01/29/20 23 01/29/2023 CBC (INCL UDES DIFF/ PLT) MCV 87.4 fL 82.0 - 99.0 normal Not Available [address], [address], 01/29/2023 12:35:45 01/29/20 23 01/29/2023 CBC (INCL UDES DIFF/ PLT) MCH 29.0 pg 27.2 - 32.6 normal Not Available [address], [address], 01/29/2023 12:35:45 01/29/20 23 01/29/2023 CBC (INCL UDES DIFF/ PLT) MCHC 33.2 g/dL 31.5 - 35.5 normal Not Available [address], [address], 01/29/2023 12:35:45 01/29/20 23 01/29/2023 CBC (INCL UDES DIFF/ PLT) RDW-CV 13.3 % 11.5 - 14.5 normal Not Available [address], [address], 01/29/2023 12:35:45 01/29/20 23 01/29/2023 CBC (INCL UDES DIFF/ PLT) platelet 348 thous and/u L 140 - 350 normal Not Available [address], [address], 01/29/2023 12:35:45 01/29/20 23 01/29/2023 CBC (INCL UDES DIFF/ PLT) MPV 10.1 fL 9.3 - 12.4 normal Not Available [address], [address], 01/29/2023 12:35:45 01/29/20 23 01/29/2023 CBC (INCL UDES DIFF/ PLT) absolute neutrophil 5.25 thous and/u L 1.90 - 7.00 normal Not Available [address], [address], 01/29/2023 12:35:45 01/29/20 23 01/29/2023 CBC (INCL UDES DIFF/ PLT) absolute lymphocyte 2.21 thous and/u L 0.70 - 4.50 normal Not Available [address], [address], 01/29/2023 12:35:45 01/29/20 23 01/29/2023 CBC (INCL UDES DIFF/ PLT) absolute monocyte 0.50 thous and/u L 0.10 - 1.30 normal Not Available [address], [address], 01/29/2023 12:35:45 01/29/20 23 01/29/2023 CBC (INCL UDES DIFF/ PLT) absolute eosinophil 0.15 thous and/u L <0.70 normal Not Available [address], [address], 01/29/2023 12:35:45 01/29/20 23 01/29/2023 CBC (INCL UDES DIFF/ PLT) absolute basophil 0.03 thous and/u L <0.20 normal Not Available [address], [address], 01/29/2023 12:35:45 01/29/20 23 01/29/2023 CBC (INCL UDES DIFF/ PLT) absolute immature granulocyte 0.01 thous and/u L <0.03 normal Not Available [address], [address], 01/29/2023 12:35:45 01/29/20 23 01/29/2023 OB PANEL - STD BLOOD WORK hep BS Ag Non-Re active non-re active normal Not Available [address], [address], 01/29/2023 13:27:25 01/29/20 23 01/29/2023 OB PANEL - STD BLOOD WORK hep C Ab Non-Re active non-re active normal Not Available [address], [address], 01/29/2023 13:27:25 01/29/20 23 01/29/2023 OB PANEL - STD BLOOD WORK HIV 1/2 Ag/Ab Non-Re active non-re active normal Not Available [address], [address], 01/29/2023 13:27:25 01/29/20 23 01/29/2023 OB PANEL - STD BLOOD WORK syphilis Ab Non-Re active non-re active normal Not Available [address], [address], 01/29/2023 13:27:25 01/29/20 23 01/29/2023 OB PANEL [...] the Rubel la virus . Not Available [address], [address], 01/29/2023 13:27:25 01/29/20 23 01/29/2023 CT/NG chlamydia trachomatis CT neg negati ve normal This repor t is inten ded for us in clini ericka monit oring and manag ement of patie nts. It is not inten ded for use in medic al-le gal appli catio n. Not Available [address], [address], 01/29/2023 14:40:40 01/29/20 23 01/29/2023 CT/NG neisseria gonorrhoeae GC neg negati ve normal This repor t is inten ded for us in clini ericka monit oring and manag ement of patie nts. It is not inten ded for use in medic al-le gal appli catio n. Not Available [facility] [address] [place], [address], 01/29/2023 14:40:40 01/29/20 23 02/03/2023 VARIC IRIS [...] e or past infec tion. The clini ericka diagn osis must be inter prete d [...] n-ind uced immun ity is Varic iris Zoste r Virus Antib jyothi Immun ity Scree n, ACIF. Not Available [facility] [address] [place], [address], 02/03/2023 16:28:08 01/29/20 23 02/03/2023 HEMOG LOBIN OPATH Y EVALU ATION red blood cell count 3.90 chuck on/uL 3.80-5 .10 Not Available [facility] [address] [place], [address], 02/03/2023 16:28:09 01/29/20 23 02/03/2023 HEMOG LOBIN OPATH Y EVALU ATION hemoglobin 11.3 g/dL 11.7-1 5.5 low Not Available [address] [address] [place], [address], 02/03/2023 16:28:09 01/29/20 23 02/03/2023 HEMOG LOBIN OPATH Y EVALU ATION hematocrit 35.8 % 35.0-4 5.0 Not Available [address] [address] [place], [address], 02/03/2023 16:28:09 01/29/20 23 02/03/2023 HEMOG LOBIN OPATH Y EVALU ATION MCV 91.8 fL 80.0-1 00.0 Not Available [address], [address], 02/03/2023 16:28:09 01/29/20 23 02/03/2023 HEMOG LOBIN OPATH Y EVALU ATION MCH 29.0 pg 27.0-3 3.0 Not Available [address] [address] [place], [address], 02/03/2023 16:28:09 01/29/20 23 02/03/2023 HEMOG LOBIN OPATH Y EVALU ATION RDW 12.8 % 11.0-1 5.0 Not Available [address] [address] [place], [address], 02/03/2023 16:28:09 01/29/20 23 02/03/2023 HEMOG LOBIN OPATH Y EVALU ATION hemoglobin A 97.6 % >96.0 Not Available [address] [address] [place], [address], 02/03/2023 16:28:09 01/29/20 23 02/03/2023 HEMOG LOBIN OPATH Y EVALU ATION hemoglobin F <1.0 % <2.0 Not Available [address] [place], [address], 02/03/2023 16:28:09 01/29/20 23 02/03/2023 HEMOG LOBIN OPATH Y EVALU ATION hemoglobin A2 (quant) 2.4 % 2.2-3. 2 Not Available [address] , [place], [address], 02/03/2023 16:28:09 01/29/20 23 02/03/2023 HEMOG LOBIN OPATH Y EVALU ATION interpretati on Carlene l pheno type. Carlene l hemog lobin distr ibuti on, no HgS, HgC or other abnor mal hemog lobin obser mare. Not Available [address] [place], [address], 02/03/2023 16:28:09 01/29/20 23 02/03/2023 ANTIB JYOTHI [...] alloi mmuni zed pregn caroline. Not Available [address] [address] [place], [address], 02/03/2023 16:28:10 01/29/20 23 02/03/2023 ABO GROUP AND RH TYPE ABO group O Not Available [address] [facility] [place], [address], 02/03/2023 16:28:10 01/29/20 23 02/03/2023 ABO GROUP AND RH TYPE Rh type RH(D) POSITI VE For addit ional infor kennedi august e refer to http: //[facility] molina.Que stDia gnost ics.c om/fa q/FAQ 111 (This link is being provi ded for infor kuldip pacheco/ educa vimal l purpo ses only. ) Not Available [address] [address] [place], [address], 02/03/2023 16:28:10 01/29/20 23 02/03/2023 ANTIB JYOTHI SCREE N, RBC W/REF L ID, TITER AND AG antibody screen, RBC w/refl id, titer and Ag TNP TEST NOT PERFO RMED Dupli meño test. Not Available [address] [address] [place], [address], 02/03/2023 16:28:16 01/29/20 23 02/03/2023 ABO GROUP AND RH TYPE ABO group TNP TEST NOT PERFO RMED Dupli meño test. Not Available [address] [address] [place], [address], 02/03/2023 16:28:16 01/29/20 23 02/03/2023 CULTU RE, URINE , ROUTI NE culture, urine, routine SEE NOTE CULTU RE, URINE , ROUTI NE Micro Numbe r: [id number] Test Statu s: Final Speci men [...] lity) will be perfo rmed. Not Available [address] , [place], [address], 02/03/2023 16:28:17 12/31/19 23 12/29/2022 US, obste tric, trans vagin al No observ ation record ed. [email or web address], [place], [address], 12/30/2022 14:45:00 02/26/19 24 02/25/2023 US, obste tric No observ ation record ed. [email or web address] [address], [place], [address], 02/26/2023 09:58:20 03/02/19 24 03/02/2023 US, tonya nce No observ ation record ed. [address], [address], 05/25/2023 11:24:29 Result Notes None recorded. Problems [...] : NO ProblemS tatus: Resolve Not Available [facility] 2 13:10:46 Postoper ative care Completed 201806/07/2019 Encounte r for surgical aftercar e followin g surgery on the genitour inary system; Progress : Stable Added By: Sadaf Griffith Add to Current Problems : NO ProblemS tatus: Resolve Not Available [facility] 2 13:10:46 Vaginola bial hernia Completed 201601/12/2017 Other specifie d noninfla mmatory disorder s of vagina; Progress : Stable Added By: Lydia Krishna Add to Current Problems : NO ProblemS tatus: Resolve Vaginal Discharg e; Location : None Progress : Stable Added By: Lydia Krishna Add to Current Problems : YES ProblemS tatus: Resolve Not Available [facility] 2 13:10:47 Menorrha ousmane [id number] Completed 201502/16/2016 Menorrha ousmane; Severity : Moderate Progress : Stable Added By: Valeria Toledo Add to Current Problems : NO ProblemS tatus: Resolve Not Available [facility] 1 04:04:53 Pain in female genitali a Completed 201507/16/2015 Dysmenor bronson, unspecif ied; Progress : Stable Added By: Jimmie Gabriel Add to Current Problems : NO ProblemS tatus: Resolve Not Available [facility] 2 13:10:50 Miscarri age [id number] Completed 201601/12/2017 Complete or unspecif ied spontane ous without complica tion; Progress : Stable Added By: Jana Quiroz i Add to Current Problems : NO ProblemS tatus: Resolve Uncompli cated complete spontane ous ; Location : None Progress : Stable Added By: Jana Quiroz i Add to Current Problems : YES ProblemS tatus: Resolve Not Available [facility] 2 13:10:59 Gestatio n period, 20 weeks [id number] Completed 201903/07/2020 20 weeks gestatio n of pregnanc y; Progress : Stable Added By: Nya Lawrence Add to Current Problems : NO ProblemS tatus: Resolve Not Available [facility] 2 13:10:54 Follicul ar cyst of ovary [id number] Completed 201406/14/2018 Ovarian cyst; Location : None Progress : Stable Added By: Laury Last Add to Current Problems : YES ProblemS tatus: Current Ovarian cyst; Progress : Stable Added By: Laury Last Add to Current Problems : NO ProblemS tatus: Resolve Not Available [facility] 2 13:10:42 Antenata l ultrasou nd finding [id number] Completed 201911/16/2019 Encounte r for pregnanc y test, result unknown; Progress : Stable Added By: Jaki Murillo Add to Current Problems : NO ProblemS tatus: Resolve Not Available [facility] 2 13:10:44 Disorder of kidney and/or ureter [id number] Completed 201710/07/2017 Pyelecta sis; Location : None Progress : Stable Added By: London Rosario Add to Current Problems : YES ProblemS tatus: Resolve Pyelecta sis; Location : None Progress : Stable Added By: David Luis Add to Current Problems : YES ProblemS tatus: Resolve; Start Date : 05/19/19 18 Not Available [facility] 2 13:10:51 Finding of pattern of menstrua l cycle [id number] Completed 201502/16/2016 Excessiv e and frequent menstrua tion with irregula r cycle; Progress : Stable Added By: Valeria Toledo Add to Current Problems : NO ProblemS tatus: Resolve Menorrha ousmane; Location : None Progress : Stable Added By: Valeria Toledo Add to Current Problems : YES ProblemS tatus: Resolve Not Available [facility] 2 13:10:58 Surveill ance of oral contrace ption done [id number] 9108 Completed 201706/14/2018 Contrace ptive surveill ance, unspecif ied; Location : None Severity : Moderate Progress : Stable Added By: David Luis Add to Current Problems : YES ProblemS tatus: Current Contrace ptive surveill ance, unspecif ied; Severity : Moderate Progress : Stable Added By: David Luis Add to Current Problems : NO ProblemS tatus: Resolve Not Available [facility] 1 04:04:54 Rubella screenin g status [id number] Completed 201610/07/2017 Antenata l screenin g; unspecif [...] : NO ProblemS tatus: Resolve Not Available [facility] 2 13:10:55 Gestatio n period, 32 weeks [id number] Completed 202003/21/2020 32 weeks gestatio n of pregnanc y; Progress : Stable Added By: See Silva Add to Current Problems : NO ProblemS tatus: Resolve Not Available [facility] 2 13:10:52 Gestatio n period, 12 weeks [id number] Completed 201911/16/2019 12 weeks gestatio n of pregnanc y; Progress : Stable Added By: Patience Munroe Add to Current Problems : NO ProblemS tatus: Resolve Not Available [facility] 2 13:10:43 Gestatio n period, 28 weeks [id number] Completed 201903/07/2020 28 weeks gestatio n of pregnanc y; Progress : Stable Added By: Cherelle Gordon Add to Current Problems : NO ProblemS tatus: Resolve Not Available [facility] 2 13:10:55 Miscarri age without complica tion 06370148 Completed 201906/07/2019 Incomple te spontane ous without complica tion; Progress : Stable Added By: Jimmie Gabriel Add to Current Problems : NO ProblemS tatus: Resolve Not Available [facility] 2 13:10:44 Acute vaginiti s [id number] Completed 201911/16/2019 Acute vaginiti s; Progress : Stable Added By: Jimmie Gabriel Add to Current Problems : NO ProblemS tatus: Resolve Not Available [facility] 2 13:10:42 Clinical finding Completed 201806/07/2019 state, incident al; Progress : Stable Added By: Christina Fragoso Add to Current Problems : NO ProblemS tatus: Resolve Not Available [facility] 2 13:10:56 Gestatio n period, 16 weeks [id number] Completed 201901/11/2020 16 weeks gestatio n of pregnanc y; Progress : Stable Added By: See Silva Add to Current Problems : NO ProblemS tatus: Resolve Not Available [facility] 2 13:10:47 Dysmenor bronson [id number] Completed 201507/16/2015 Dysmenor bronson; Location : None Progress : Stable Added By: Jimmie Gabriel Add to Current Problems : NO ProblemS tatus: Resolve Not Available [facility] 2 13:10:53 Gestatio n period, 24 weeks [id number] Completed 201903/07/2020 24 weeks gestatio n of pregnanc y; Progress : Stable Added By: See Silva Add to Current Problems : NO ProblemS tatus: Resolve Not Available [facility] 2 13:10:48 Gestatio n period, 10 weeks [id number] Completed 201911/16/2019 10 weeks gestatio n of pregnanc y; Progress : Stable Added By: Sadaf Tse Add to Current Problems : NO ProblemS tatus: Resolve Not Available [facility] 2 13:10:43 Breast lump [id number] Completed 201506/14/2018 Breast mass; Progress : Stable [...] : YES ProblemS tatus: Current Not Available [facility] 2 13:10:46 Uterine size for dates discrepa ncy Completed 201903/07/2020 Uterine size-oliver e discrepa ncy, unspecif ied trimeste r; Progress : Stable Added By: Cherelle Gordon Add to Current Problems : NO ProblemS tatus: Resolve Not Available [facility] 2 13:10:42 Spotting per vagina in pregnanc y [id number] Completed 201806/07/2019 Spotting complica ting pregnanc y, unspecif ied trimeste r; Progress : Stable Added By: An aMaria Watkins Add to Current Problems : NO ProblemS tatus: Resolve Not Available [facility] 2 13:10:44 Slow transit constipa tion [id number] Completed 201406/14/2018 Constipa tion; Location : None Progress : Stable Added By: Jimmie Gabriel Add to Current Problems : NO ProblemS tatus: Current Constipa tion; Progress : Stable Added By: Jimmie Gabriel Add to Current Problems : NO ProblemS tatus: Resolve Not Available [facility] 2 13:10:51 Threaten ed miscarri age [id number] Completed 201906/07/2019 Threaten ed ; Progress : Stable Added By: Christina Fragoso Add to Current Problems : NO ProblemS tatus: Resolve Not Available [facility] 2 13:10:48 Gestatio n period, 30 weeks [id number] Completed 202003/07/2020 30 weeks gestatio n of pregnanc y; Progress : Stable Added By: vIon Robbins Add to Current Problems : NO ProblemS tatus: Resolve Not Available [facility] 2 13:10:53 Gestatio n period, 39 weeks [id number] Completed 201610/07/2017 39 weeks gestatio n of pregnanc y; Progress : Stable Added By: Lucía Kang Add to Current Problems : NO ProblemS tatus: Resolve Not Available [facility] 2 13:10:57 Partial hydatidi form mole [id number] Completed 201911/16/2019 Incomple te and partial hydatidi form mole; Progress : Stable Added By: Jimmie Gabriel Add to Current Problems : NO ProblemS tatus: Resolve Not Available [facility] 2 13:10:54 Normal pregnanc y in multigra elizabet [id number] 4106 Completed 201901/11/2020 Encounte r for supervis [...] Start Date : 01/13/20 17 Sadaf Tse null, [facility] 2 10:51:44 Dysuria [id number] Completed 201710/07/2017 Dysuria; Location : None Progress : Stable Added By: David Luis Add to Current Problems : YES ProblemS tatus: Resolve Painful micturit ion, unspecif ied; Progress : Stable Added By: David Luis Add to Current Problems : NO ProblemS tatus: Resolve Not Available [facility] 2 13:10:52 Finding related to pregnanc y Completed 201806/07/2019 Recurren t pregnanc y loss; Progress : Stable Added By: Reji gR Add to Current Problems : NO ProblemS tatus: Resolve Not Available [facility] 2 13:10:59 Sampling of vagina for Papanico laou smear Completed 201811/16/2019 Encounte r for gynecolo gical examinat ion (general ) (routine ) without abnormal findings ; Progress : Stable Added By: Ivon Robbins Add to Current Problems : NO ProblemS tatus: Resolve Not Available [facility] 2 13:10:47 Clinical finding Completed 201601/12/2017 Encounte r for supervis ion of normal pregnanc y, unspecif ied, unspecif ied trimeste r; Progress : Stable Added By: Lydia Krishna Add to Current Problems : NO ProblemS tatus: Resolve Not Available [facility] 2 13:10:59 Lochia finding Completed 201707/09/2018 Encounte r for routine postpart um follow-u p; Progress : Stable Added By: David Luis Add to Current Problems : NO ProblemS tatus: Resolve Not Available [facility] 2 13:10:49 Gestatio n period, 8 weeks 07452340 Completed 201911/16/2019 8 weeks gestatio n of pregnanc y; Progress : Stable Added By: Ivon Robbins Add to Current Problems : NO ProblemS tatus: Resolve Not Available [facility] 2 13:10:50 Right upper quadrant pain 751659331 Completed 201806/07/2019 Right upper quadrant pain; Progress : Stable Added By: Trena Sol Add to Current Problems : NO ProblemS tatus: Resolve Not Available [facility] 2 13:10:45 Hemoglob in A1C - diabetic control finding [id number] Completed 202003/07/2020 Other abnormal glucose; Progress : Stable Added By: Cindy Mac Add to Current Problems : NO ProblemS tatus: Resolve Not Available [facility] 2 13:10:55 Gestatio n less than 9 weeks 485553150 Completed 201806/07/2019 Less than 8 weeks gestatio n of pregnanc y; Progress : Stable Added By: Sadaf Griffith Add to Current Problems : NO ProblemS tatus: Resolve Not Available [facility] 2 13:10:51 Surveill ance of contrace ption Completed 201706/07/2019 Contrace ptive surveill ance, unspecif ied; Location : None Progress : Stable Added By: David Luis Add to Current Problems : YES ProblemS tatus: Current Encounte r for surveill ance of contrace ptives, unspecif ied; Progress : Stable Added By: David Luis Add to Current Problems : NO ProblemS tatus: Resolve Not Available [facility] 2 13:10:45 Antenata l screenin g for malforma tion Completed 201903/07/2020 Encounte r for antenata l screenin g for malforma tions; Progress : Stable Added By: Nya Lawrence Add to Current Problems : NO ProblemS tatus: Resolve Not Available [facility] 2 13:10:48 Postpart um care Completed 201707/09/2018 Visit for routine postpart um follow-u p; Location : None Progress : Stable Added By: David Luis Add to Current Problems : YES ProblemS tatus: Resolve Not Available [facility] 2 13:10:53 Screenin g for malignan t neoplasm of cervix Completed 201806/07/2019 Encounte r for screenin g for malignan t neoplasm of cervix; Progress : Stable Added By: Cheri Kuhn Add to Current Problems : NO ProblemS tatus: Resolve Not Available [facility] 2 13:10:56 Screenin g for disorder Completed 201707/09/2018 Encounte r for screenin g for other disorder ; Progress : Stable Added By: David Luis Add to Current Problems : NO ProblemS tatus: Resolve Screenin g for depressi on; Location : None Progress : Stable Added By: David Luis Add to Current Problems : YES ProblemS tatus: Resolve Not Available [facility] 2 13:10:58 Normal pregnanc y 39886656 Completed 201608/21/2017 Medical visit for normal pregnanc [...] : YES ProblemS tatus: Resolve Not Available [facility] 2 13:10:58 Pregnanc y 51860237 Completed 202206/10/2023 Sole parkinson, [facility] 4 10:41:08 Past pregnanc y history of molar pregnanc y [id number] 586196 Completed send placenta to path Sole parkinson, [facility] 4 10:41:06 Problem Notes None recorded. Procedures Surgical History Date Name Laterality Status Provider Name and Address Organization Details Recorded Time 025 Most Recent Mammogram completed Monica Jara [place] - [facility] 06/06/2024 16:59:17 024 endometrial ablation completed Jimmie Gabriel MD [address] [place] [address], [phone], [facility] - [facility] 06/10/2023 14:45:06 024 dilation and curettage completed Jimmie Gabriel MD [address] [place] [address], [phone], [facility] 05/27/2023 19:34:46 023 Date of Last Pap Smear completed Sole Tse [facility] 12/15/2022 09:57:45 023 biopsy of breast completed Jimmie Gabriel MD [address] [place] [address], [phone], [facility] 06/06/2024 17:30:35 022 Mirena IUD Removal completed LOULOU Packer [address] [place] [address], [phone], [facility] 05/27/2021 14:07:16 021 Date of Last Colonoscopy completed Monicateagan Jara [facility] 06/06/2024 16:59:30 020 Dilation and curettage completed Jimmie Gabriel MD [address] [place] [address], [phone], [facility] 01/28/2023 17:46:54 Remove tonsils and adenoids completed Sadaf [facility] 05/24/2021 10:53:06 inguinal region excision completed [facility] 05/24/2021 10:53:30 Endometrial Ablation completed Paulina Torrez [place] [facility] 06/06/2024 16:09:29 Sterilization completed Paulina Torrez V [facility] 06/06/2024 16:09:29 Imaging Results None recorded. Procedure Notes None recorded. Medical Equipment None Reported. Allergies Allergen ID Allergen Name Allergen Category Reaction Reaction Severity Criticality Documentation Date Start Date Code Code System Note Provider Name and Address Organization Details Recorded Time 179906 Product containin g penicilli n (product) medicatio n Not available Not available Not available 11/30/20202014 91145 8001 SNOMED Paulina Torrez [facility], [facility] IV 5 16:09:28 845725 nickel environme nt,medica tion Not available Not available Not available 11/30/20202014 95169 29 RxNorm Sever ity: Moder ate; Not Available [facility] 01:05:16 570158 morphine sulfate medicatio n Not available Not available Not available 11/30/20202014 51517 RxNorm Sever ity: Moder ate; Not Available [facility] 01:05:16 481093 cow milk allergeni c extract food,medi cation Not available Not available Not available 06/06/2024 26356 5 RxNorm Paulina Torrez [facility] IV 5 16:09:28 864775 cat dander environme nt Not available Not available Not available 06/06/2024 35508 UNK Paulina Torrez [facility], [facility] 5 16:09:28 631580 Galactose -alpha-1, 3 galactose (substanc e) food,medi cation Not available Not available low 06/06/20242024 87346 8006 SNOMED All meat and dairy produ cts. Has EPI pen. unrec ogniz ed react ion (text : Nause a & Vomit ing, code: [id number]) (from exter nal sourc e) Monica Idalmis pacheco [facility] 5 16:55:29 Medications Name Sig Start Date Stop Date Status Note LastModified by Organization Details LastModified Time Prometriu m 200 mg capsule 1 po qhs 02/25 completed Not Available Not Available Not Available Mirena 21 mcg/24 hr (up to 8 years) 52 mg intrauter ine device Take by intraute rine route. 08/15 completed Not Available Not Available Not Available doxycycli ne hyclate 100 mg capsule TAKE 1 CAPSULE BY MOUTH TWICE A DAY FOR 12 DAYS 06/06 completed Not Available Not Available Not Available [...] now 07/18 completed Diflucan 150mg Tablet RxNorm: 712791 Allow Substitu tion: True Refill Denied: No Not Available Not Available Not Available Zyrtec 10 mg tablet Take 1 tablet every day by oral route. active Not Available Not Available No t Available metronida zole 500 mg tablet PLEASE [...] oral tablet, delayed release (enteric coated) RxNorm: 776020 Allow Substitu tion: False Refill Denied: No [...] days 01/02 completed Macrobid 100mg Capsules RxNorm: 069699 Allow Substitu tion: True Refill Denied: No [...] AREA(S) BY TOPICAL ROUTE 2-4 TIMESDAI LY 06/06 completed Not Available Not Available Not Available Metrogel Vaginal 0.75 % (37.5 mg/5 gram) 1 applicat or at HS x 5 nights. 07/18 completed MetroGel 0.75% Vaginal Gel RxNorm: 964404 Allow Substitu tion: True Refill Denied: No Not Available Not Available Not Available doxycycli ne monohydra te 100 mg capsule 1 capsule( or tab) po bid for 7 days and may substitu te any form of doxycycl ine 05/24 completed doxycycl ine monohydr ate 100 mg oral capsule RxNorm: 4831665 Allow Substitu tion: True Refill Denied: No Edited by: Jimmie Weir) on 03/24/19 20 Stopped by: Jimmie Weir) on Not Available Not Available Not Available ferrous sulfate 325 mg (65 mg iron) tablet take 1 tablet (325 mg) by oral route 1 times per day 02/14 completed ferrous sulfate 325 mg (65 mg iron) oral tablet RxNorm: 452865 Allow Substitu tion: True Refill Denied: No Edited by: felipa lange(Christina Alfonso) on 02/14/19 Stopped by: felipa lange(Christina Alfonso) on 02/14/19 Not Available Not Available Not [...] phosphat e 2 % Vaginal Cream RxNorm: 600457 Allow Substitu tion: True Refill Denied: No Edited by: See Verde ) on 03/07/19 Stopped by: rocio(See Jovel ) on 03/07/19 Not Available Not Available Not Available hydroxyzi ne HCl 25 mg tablet take 1 to 2 tablets (25 mg) by oral route evry 6 hours as needed for nausea or headache s 08/21 completed hydrOXYz ine HCL 25 mg oral tablet RxNorm: 910018 Allow Substitu tion: True Refill Denied: No [...] dicyclom ine 10 mg oral capsule RxNorm: 460503 Allow Substitu tion: True Refill Denied: No Edited by: Apolonia Thrasher ) on 12/08/19 Stopped by: harriet (Apolonia Perez ) on 12/08/19 Not Available Not Available Not Available progester [...] True Refill Denied: No Edited by: Mikayla Ventura) on 10/24/19 21 Stopped by: Mikayla Ventura) on Not Available Not Available Not Available Naprosyn 04/18 completed Naprosyn RxNorm: 085715 Allow Substitu tion: True Refill Denied: No [...] bid 04/25 completed Celexa 10mg Tablet RxNorm: 807724 Allow Substitu tion: True Refill Denied: No Refill DateOccu rred: 05/17/19 16 Edited by: sis(Shanna Melgoza) on 04/26/19 17 Stopped by: sis(Shanna Melgoza) on 04/26/19 17 Not Available Not Available Not Available Unisom (doxylami ne) 03/11 completed Not Available Not Available Not Available 03/11 completed Not Available Not Available Not Available Unisom SleepGels 03/07 completed Unisom Sleepgel s RxNorm: 7155608 Allow Substitu tion: False Refill Denied: No Refill DateOccu rred: 09/21/19 20 Edited by: See Verde ) on 03/07/19 Stopped by: rocio(See Jovel ) on 03/07/19 21 Not Available Not Available Not Available Vitamin B6 03/11 completed Not Available Not Available Not Available NuvaRing 04/18 completed NuvaRing RxNorm: 669732 Allow Substitu tion: True Refill Denied: No Not Available Not Available Not Available doxylamin e 10 mg-pyrido xine (vit B6) 10 mg tablet,de layed release take 1 tablet by oral route in the morning and 2 tablets at bedtime 03/07 completed doxylami ne-pyrid oxine (vit B6) 10-10 mg oral tablet, delayed release (enteric coated) RxNorm: 8930042 Allow Substitu tion: True Refill Denied: No Edited by: See Verde ) on 03/07/19 Stopped by: See Verde ) on 03/07/19 Not Available Not Available Not Available Auvi-Q 0.3 mg/0.3 mL injection , auto-inje ctor inject into thigh through clothing as needed FOR SEVERE allergic reaction -- call 911 active Not Available Not Available No t Available Vitals Date Recorded Body weight Provider Name an d Address Organization Details Last Updated DateTime 02/25/2023 02266.837420 g Jana Todd, [facility] [address] [facility], [place], [address], [facility] 02/25/2023 16:20:08 Date Recorded Body height Body mass index (BMI) Body temperature Systolic And Diastolic Provider Name and Address Organization Details Last Updated DateTime 02/25/2023 152.4 cm 24.6 kg/m2 97.8 [degF] 126/76 mm[Hg] Ivon Sinclair [facility] 02/25/2023 15:56:32 Date Recorded Body weight Provider Name an d Address Organization Details Last Updated DateTime 03/11/2023 35607.67784 g Sole Tse [facility] 06/10/2023 10:39:58 Date Recorded Body height Body mass index (BMI) Systolic And Diastolic Provider Name and Address Organization Details Last Updated DateTime 03/11/2023 152.4 cm 22.7 kg/m2 110/74 mm[Hg] Monica Jara [facility] 03/11/2023 10:09:12 Date Recorded Body height Body mass index (BMI) Body weight Systolic And Diastolic Provider Name and Address Organization Details Last Updated DateTime 06/06/2024 152.4 cm 23.6 kg/m2 17257.68 g 112/64 mm[Hg] Monica Jara [facility] 06/06/2024 17:03:33 Date Recorded Body height Body mass index (BMI) Body weight Body temperature Systolic And Diastolic Provider Name and Address Organization Details Last Updated DateTime 06/10/2023 152.4 cm 24.1 kg/m2 51694.0 2 g 97.7 [degF] 108/72 mm[Hg] Richelle Flores [facility] IV 14:25:00 Date Recorded Body weight Provider Name an d Address Organization Details Last Updated DateTime 01/28/2023 76792.624938 g Jimmie Gabriel MD [facility] [place], [address], [facility] 01/28/2023 17:43:30 Date Recorded Body height Provider Name an d Address Organization Details Last Updated DateTime 01/28/2023 152.4 cm Ivon Sinclair [facility] 01/28/2023 17:11:32 Date Recorded Body mass index (BMI) Body temperature Systolic And Diastolic Provider Name and Address Organization Details Last Updated DateTime 01/28/2023 23.1 kg/m2 97.9 [degF] 124/74 mm[Hg] Harshad Eller [facility] 01/28/2023 17:38:45 Social History Question Answer Notes LastModified by Organizat ion Details LastModified Time Tobacco Smoking Status Never Smoker Lydia parkinson, [facility] 08/15/2021 16:29:47 If You Are , What Was Your Level Of Alcohol Consumption Prior To ? Occasional Information not available 12/29/2022 How Many Years Have You Consumed Alcohol? 15 [email or web address] Information not available 03/24/2022 Are You Blind Or Do You Have Difficulty Seeing? No Information not available 08/15/2021 Are You Deaf Or Do You Have Serious Difficulty Hearing? No Information not available 08/15/2021 What Type Of Diet Are You Following? SPECIFIC Information not available 06/06/2024 What Is The Highest Grade Or Level Of School You Have Completed Or The Highest Degree You Have Received? [id number] [email or web address] Information not available 06/06/2024 How Many Children Do You Have? 2 [email or web address] Information not available 05/24/2021 Are There Any Occupational Health Risks Where You Work? 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 His Brother Just Purchased [facility] 2022 Information not available 01/28/2023 Are You Sexually Active? Yes [email or web address] Information not available 05/24/2021 Sex: Unknown Functional Status Question Answer Note LastModified by Organizat ion Details LastModified Time How many times per week do you consume alcohol? Less than 1 time per week Information not available 06/10/2023 Do you use any illicit or recreational drugs? No Information not available 08/15/2021 Do you or have you ever used any other forms of tobacco or nicotine? No Information not available 06/10/2023 What is your level of alcohol consumption? Occasional Information not available 08/15/2021 Are you currently employed? 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 Never used electronic cigarettes [email or web address] Information not available 03/24/2022 What is your exercise level? Occasional Information not available 08/15/2021 Mental Status None recorded. Family History Relationship Description Onset Age of this Age Resolved Age Notes LastModified by Organization Details LastModified Time Father No current problems or disability [email or web address] Not available 05/10 10:52:38 Mother No current problems or disability [email or web address] Not available 05/10 10:52:38 Medical History Condition Response Other Cancer N High Blood Pressure N Colon Cancer N Cytomegalovirus N Hyperthyroidism N Breast Cancer N Herpes (HSV) N MRSA N Blood Transfusion N Lung Cancer N Hypothyroidism N Depression N Incontinence N Panic Attacks N Neurological Disorder N Deep Vein Thrombosis N Anxiety Disorder N Autoimmune disease N Arthritis N Tuberculosis/Positive PPD N Shingles N Polycystic Ovarian Syndrome Y Cervical Cancer N Hematuria N Chlamydia N Varicosities N Stroke N Crohn's Disease N Seasonal allergies N Alzheimer's/Dementia N COPD/Emphysema N HPV/Genital Warts N Endometriosis N IBS (Irritable Bowel Syndrome) Y History of Abnormal Pap Y High Cholesterol N Liver Disease N Fibromyalgia N Kidney Infection N Ulcer N Kidney Disease N HIV N Gallbladder disease N Von Willebrand disease N Sickle Cell Disease/Trait N ADD/ADHD N Eating Disorder N Diabetes Mellitus (non-insulin dependent ) N Anemia N Ovarian Problems N Multiple Sclerosis N Gonorrhea N Frequent Urinary Tract infections N Osteopenia N Headaches/migraines N GERD (reflux) N Ovarian Cancer N Diabetes (insulin dependent) N Seizures/Epilepsy N Fibroids N Asthma N Heart Attack N Endometrial Cancer N Lupus N Rubella N Blood Clotting Disorder N Bipolar Disorder N Diabetes Mellitus (during ) N Ulcerative Colitis N Hepatitis N Heart Disease N Pulmonary Embolism N RPR N Chicken Pox Y Osteoporosis N Gynecological History Statement/Question Response Flow Moderate Date of last HPV 05/23/2022 Date of LMP 11/12/2022 Duration of Flow (days) 6 Most Recent Mammogram 04/05/2024 Current Control Method Tubal Ligat ion Age at Menarche 12 Date of Last Colonoscopy 05/10/2020 Most Recent Bone Density Frequency of Cycle (Q days) 29 Date of Last Pap Smear 05/23/2022 Obstetrics History GPAL:G 6 P 2 0 4 2 Type Value Full Term 2 Spontaneous 4 Living 2 Total 6 Past Encounters Encounter ID Performer Location Encounter Start Date Encounter Closed Date Diagnosis/Indication Diagnosis SNOMED-CT Code Diagnosis ICD10 Code Diagnosis Note [id number] LOULOU Packer [facility] [address] [place] [address] 05/27/2021 15:53:22 05/27/2021 16:42:56 Contraception care management 829534285 Z30.9 [id number] Keiry SimmonsLillyRolf romo, [facility] [address] [place] [address] 08/15/2021 16:13:38 08/16/2021 12:37:05 Inflammatory disorder of breast 965546302 N61.0 No s/s mastitis. No lactating/ discharge for 4 months. Discussed can be early sign of breast cancer and need for eval AYE. No clogged ducts or other signs of lactating/ mastitis [id number] Denys Holloway, [facility] [address] [place] [address] 03/24/2022 16:00:52 03/24/2022 18:23:34 Gynecologic examination 01262053 Z01.419 WWE completedP ap with HPV obtainedCB E nml; reports nipple dc-has MRI today; discussed breast self-aware ness.Cardi ovascular health: discussed healthy diet and regular exercise.C ontracepti on-nonerto in 1 year for wwe, sooner if problems, questions, or concerns. Screening for malignant neoplasm of cervix 207692919 Z12.4 Cervical cancer screening is used to find abnormal changes in the cells of the cervix that could lead to cancer. Screening includes the Pap test and, for some women, testing for a virus called human papillomav irus (HPV). The main cause of cervical cancer is infection with HPV. Depression screening 171 287653 Z13.31 Screen negative [id number] Jana Todd, [address] [place] [address] 12/15/2022 09:33:40 12/15/2022 18:05:56 Amenorrhea 50661729 N91.0 N91.1 Z32.00 Recurrent miscarriage [address] Gabriel, will take oral progestero ne and baby aspirin qhs. Follow quants. Plan ultrasound in 2 weeks and PRN Strict precaution s reviewed. [place] testing when able. [id number] Jimmie Holloway, [facility] [address] [place] [address] 12/29/2022 14:42:51 12/30/2022 10:45:21 Uncertain viability of 725034553 O36.80X9 [id number] Jimmie Gabriel MD [address] [address] 01/28/2023 17:02:11 01/29/2023 12:21:54 Routine care 804629611 Z34.01 Z34.81 O09.511 O09.521 Gestation period, 11 weeks 18832129 Z3A.11 Hyperemesi s gravidarum 28520171 O21.0 [id number] Jana Todd, [facility] [address] [place] [address] 02/25/2023 15:49:53 02/25/2023 17:49:29 Gestation period, 15 weeks 1042594 Z3A.15 Missed miscarriage 78088 004 O02.1 [id number] Jimmie Gabriel MD [address] [address] 03/11/2023 09:44:24 03/11/2023 15:50:01 Postoperative visit 975168045 Z09 Feeling well. No N/V or Fever. Pain is minimal. No abnormal bleeding Bowels moving well and voiding without difficulty Secondary dysmenorrhea 64127403 N94.5 Menorrhagia 803796523 N9 2.0 lap tubal and COUNSELING was provided today regarding the following topics: . You are scheduled for an endometria l ablation which may be done a few different ways and we will proceed with the type we feel seems best for you. You have a substantia l risk for complicati ons including blood transfusio n, hysterecto my and or if you become after an endometria l ablation. A the time of ablation we highly suggest permanet sterilizat ion and at least a reliable long acting contracept sindy. Risks of surgery discussed which include: infection, undesirabl e result with continued bleeding, cramping or pain, possibly leading to hysterecto my; electrolyt e imbalance which could lead to a seizure; perforatio n of uterine wall or transfer of energy through the uterine wall leading to damage to adjacent structures such as bowel and bladder; blood clots. heavy cycles and has been on control pills and the NuvaRing did not necessaril y like how the estrogen made her feel and did not want the risk for a blood clot also has tried the Mirena IUD and this was very uncomforta ble and it had to be removed she has a fair amount of cramping at the beginning of her cycle the first 2 days then after that not too bad with the tubal ligation her periods will be a little bit heavier and I would suggest doing an endometria l ablation she is a good candidate because she has no fibroids and her uterus is not larger than 12 cm Recurrent miscarriage 10 3287451 N96 with triploidy on POC and molar preg and we will proceed with Karyotype for both if desired [id number] Jimmie Gabriel MD [address] [address] 06/10/2023 13:58:38 06/10/2023 15:40:18 Postoperative visit 946125179 Z09 Feeling well. No N/V or Fever. Pain is minimal. No abnormal bleeding Bowels moving well and voiding without difficulty [id number] Jimmie Gabriel MD [address] [place] [address] 06/06/2024 16:06:59 06/08/2024 13:33:27 Gynecologic examination 04534772 Z01.419 34 y.o. here for annual exam. - Pap / HPV cotesting // up to date from , discussed natural course of HPV infection, ASCCP guidelines . Plan to repeat cotesting in - Contracept sindy counseling : Discussed options including OCPs, NuvaRing, Nexplanon, hormonal and copper IUDs. Discussed risks, benefits, and side effects of each option, including risk of VTE with hormonal contracept ion and uterine perforatio n with IUD. - Routine labs done with PCP - Mammo at age 40, no increased risk - Depression screen NEG - BMI counseling , diet and exercise reviewed - RTO for annual or PRN Screening for malignant neoplasm of cervix 615368063 Z12.4 Surveillan ce of contraception 220937765 Z30.40 Depression screening 171 043634 Z13.31 See Intake Screening - PHQ Health Concerns Section Related Observation LastModified by Organization Detai ls LastModified Time None Recorded Concern Status LastModified by Organization Details LastModified Time None Recorded Advance Directives Directive None Recorded Payers Insurance Date Sequence Insurance Name Policy Number Policy Pina Covered Member ID Pina Member ID Guarantor Name 06/03/2024 1 ANJEL (POS II) [id number] Nika Molina [id number] Nika Garrett Notes Date Note Type Note Provider Name and Address Organization Details Recorded Time 01/28/2023 text/html wants to talk ab out the progesterone today. no other concerns or questions at this time. Jimmie Gabriel MD [address] [place] [address], [phone], [facility] [employer] IV 01/28/2023 18:29:39 02/25/2023 text/html OB ProblemReport ed bypatient.Associated Symptoms:no abdominal pain; no cramping; no bleeding; no vaginal discharge; no vaginal/vulvar itching or irritation; no headache; no dizziness; no breathlessnessNotes:n o back pain Jana Todd CNM [address] [place] [address], [phone], [facility] [employer] IV 02/25/2023 16:21:13 03/11/2023 text/html Post-OpReported bypatient.Onset/Timmary g:date of surgery: (02/26/23) Quality:procedure: (D & C) Context:reason for procedure: (Miscarriage) Patient is here for a post op visit after her D & C, she is doing well. Jimmie Gabriel MD [address] [place] [address], [phone], [facility] [employer] IV 03/11/2023 10:46:56 06/10/2023 text/html Post-OpReported bypatient.Onset/Timin g:date of surgery: (05/28/2023) Quality:procedure: (Tubal ligation OK HYSTEROSCOPY ENDOMETRIAL ABLATION OK LAPAROSCOPY W/PLMT OCCLUSION DEVICE OVIDUCTS DILATION AND CURETTAGE WITH HYSTEROSCOPY - MELLISA ABLATION LAPAROSCOPIC BILATERAL TUBAL LIGATIONPOSSIBLE LAPAROSCOPIC BILATERAL SALPINGECTOMY) Context:reason for procedure: (VOLUNTARY STERILIZATION, MENORRHAGIA) Associated Symptoms:incision healing well; no fatigue; normal appetite; normal bowel function; no constipation; no nausea; no emesis; pain improving; no pain; no fever; no bleeding; no lower extremity edema/pain; no dysuria/urinary symptoms Jimmie Gabriel MD [address] [place] [address], [phone], [facility] [employer] 06/10/2023 14:46:16 06/06/2024 text/html Annual GYNReport ed bypatient.Urinary symptoms:No hematuria; No incontinence Vulva:No genital lesion Vagina:Normal vaginal discharge Breast:No breast pain; No breast lump; No nipple discharge Current Contraception:Satisfi ed with current contraception Sexual complaints:No sexual complaints; No pain during intercourse; Normal libido Menopausal Symptoms:No menopausal symptoms Psychological symptoms:No depression; No anxiety; No PMDD The patient verbally consented to documentation via virtual scribe for this encounter. Nika is a 34-year-old female who presents today for her annual visit. PHQ-9 score is a 3.Pt presents to office for annual well woman examHer last pap was 05/23/22Her LMP was: AblationShe is currently sexually activeHer current BCM is: Tubal LigationPt declines STD screening via culture and serum testing.Pt has no other concerns She reports that she was recently diagnosed with tick-borne illness. She is sexually active and denies any pain or discomfort with intercourse. She has no menses since ablation procedure. She has tubular adenoma on her left breast. Jimmie Gabriel MD [address] [place] [address], [phone], [facility] [employer] 06/07/2024 13:03:58 OBGyn Episode Ob Episode Information Episode Created Date Number of Fetuses Patient Bloodtype Patient rh Status Prepregnancy Weight lbs Domestic Partner Domestic Partner Phone Father Name Project Program Manager Status 04/26/19 22 1 DELETED Naif Calculation Initial Naif Date Initial Exam Date Initial Exam Provider Initial Ultrasound Date Last Menstrual Period Date Ultra Sound Weeks Gestation 0 Eighteen To Twenty Week Naif Update [...] Domestic Partner Domestic Partner Phone Father Name Project Program Manager Status 04/26/19 22 1 CLOSED Fetus Data First Name Last Name Admitted to NICU Weight (g) Sex Living Outcome Pediatric Complications Fetus ID Race Codes Race Delivery Type 3005.04 7 M [id number] Naif Calculation Initial Naif Date Initial Exam Date Initial Exam Provider Initial Ultrasound Date Last Menstrual Period Date Ultra Sound Weeks Gestation 0 Eighteen To Twenty Week Naif Update [...] Domestic Partner Domestic Partner Phone Father Name Project Program Manager Status 04/26/19 22 1 DELETED Naif Calculation Initial Naif Date Initial Exam Date Initial Exam Provider Initial Ultrasound Date Last Menstrual Period Date Ultra Sound Weeks Gestation 0 Eighteen To Twenty Week Naif Update [...] Domestic Partner Domestic Partner Phone Father Name Project Program Manager Status 04/26/19 22 1 DELETED Naif Calculation Initial Nafi Date Initial Exam Date Initial Exam Provider Initial Ultrasound Date Last Menstrual Period Date Ultra Sound Weeks Gestation 0 Eighteen To Twenty Week Naif Update [...] Domestic Partner Domestic Partner Phone Father Name Project Program Manager Status 04/26/19 22 1 DELETED Naif Calculation Initial Naif Date Initial Exam Date Initial Exam Provider Initial Ultrasound Date Last Menstrual Period Date Ultra Sound Weeks Gestation 0 Eighteen To Twenty Week Naif Update [...] Domestic Partner Domestic Partner Phone Father Name Project Program Manager Status 04/26/19 1 CLOSED Fetus Data First Name Last Name Admitted to NICU Weight (g) Sex Living Outcome Pediatric Complications Fetus ID Race Codes Race Delivery Type 2721.55 2 M [id number] Naif Calculation Initial Naif Date Initial Exam Date Initial Exam Provider Initial Ultrasound Date Last Menstrual Period Date Ultra Sound Weeks Gestation 0 Eighteen To Twenty Week Naif Update [...] Domestic Partner Domestic Partner Phone Father Name Project Program Manager Status 01/29/20 23 1 CLOSED Fetus Data First Name Last Name Admitted to NICU Weight (g) Sex Living Outcome Pediatric Complications Fetus ID Race Codes Race Delivery Type Demise [id number] Problems Problem Notes if PLTCs then tubal Problem Name Start Date End Date Resolution Snomed Code Not e Past history of molar [id number] send place nta to path Naif Calculation Initial Naif Date Initial Exam Date Initial Exam Provider Initial Ultrasound Date Last Menstrual Period Date Ultra Sound Weeks Gestation 08/19/2023 01/28/2023 12/29/2022 11/12/2022 7 Eighteen To Twenty Week Naif Update Ultra Sound Date Fundal Height At Umbil Quickening Date Ultra Sound Latest Weeks Gestation Final Naif Confirmed By Final Naif Confirmed Date Final Naif Date Ultra Sound Latest Days Gestation 0 01/28/2023 08/19/19 24 0 Pre-nara Flowsheet Flowsheet Date 01/28/2023 Mendoza Score Blood Edema Fundus Height Fundus Units Glucose Ketones Leukocytes Nitrite Labor Signs Protein Cervic Dilation Cervic Effacement Cervic Station Type Weight in lbs Pre/Post Dialysis Refused Weight 118.184131628715 BP Diastolic BP Location Tested BP Systolic [...] Weight in lbs Pre/Post Dialysis Refused Weight 126.599782619551 BP Diastolic BP Location Tested BP Systolic [...] in lbs Pre/Post Dialysis Refused With clothes 116.70399227046 BP Diastolic BP Location Tested BP Systolic [...] Domestic Partner Domestic Partner Phone Father Name Project Program Manager Status 03/11/19 24 1 CLOSED Fetus Data First Name Last Name Admitted to NICU Weight (g) Sex Living Outcome Pediatric Complications Fetus ID Race Codes Race Delivery Type , Spontane ous [id number] Naif Calculation Initial Naif Date Initial Exam Date Initial Exam Provider Initial Ultrasound Date Last Menstrual Period Date Ultra Sound Weeks Gestation 0 Eighteen To Twenty Week Naif Update [...] Domestic Partner Domestic Partner Phone Father Name Project Program Manager Status 03/11/19 24 1 CLOSED Fetus Data First Name Last Name Admitted to NICU Weight (g) Sex Living Outcome Pediatric Complications Fetus ID Race Codes Race Delivery Type , Spontane ous [id number] Naif Calculation Initial Naif Date Initial Exam Date Initial Exam Provider Initial Ultrasound Date Last Menstrual Period Date Ultra Sound Weeks Gestation 0 Eighteen To Twenty Week Naif Update [...] Domestic Partner Domestic Partner Phone Father Name Project Program Manager Status 03/11/19 24 1 CLOSED Fetus Data First Name Last Name Admitted to NICU Weight (g) Sex Living Outcome Pediatric Complications Fetus ID Race Codes Race Delivery Type [id number] Naif Calculation Initial Naif Date Initial Exam Date Initial Exam Provider Initial Ultrasound Date Last Menstrual Period Date Ultra Sound Weeks Gestation 0 Eighteen To Twenty Week Naif Update [...] Domestic Partner Domestic Partner Phone Father Name Project Program Manager Status 05/27/19 24 1 CLOSED Fetus Data First Name Last Name Admitted to NICU Weight (g) Sex Living Outcome Pediatric Complications Fetus ID Race Codes Race Delivery Type , Spontane ous [id number] Naif Calculation Initial Naif Date Initial Exam Date Initial Exam Provider Initial Ultrasound Date Last Menstrual Period Date Ultra Sound Weeks Gestation 0 Eighteen To Twenty Week Naif Update [...]
--- OUTSIDE RECORDS SUMMARY | 2024-08-08 18:57 | XMS_ITS | Encounter Summary ---
Author Organization [facility] Address [facility] [place] [address] Care Team Providers Care Technology Applications Teacher Name Role Phone None, Provider Primary Care Provider Jimmie Alvarez MD Primary Care Provider [phone] Encounter Details Date Type Department Care Team (Late st Contact Info) Description 09/07/2017 Hospital Follow-up Call [facility] [place] [address] Lotus Robbins RN Social History Tobacco Use Types Packs/Day Years Used Date Smoking Tobacco: Former Smokeless Tobacco: Never Alcohol Use Standard Drinks/Week Comments No 0 (1 standard drink = 0.6 oz pur e alcohol) Comments No Sex and Gender Information Value Date Recorded Sex Assigned at Not on file Legal Sex Female 6:54 PM CDT Gender Identity Not on file Sexual Orientation Not on file documented as of this encounter Plan of Treatment Not on file documented as of this encounter Visit Diagnoses Not on filedocumented in this encounter Care Teams Technology Applications Teacher Relationship Specialty Start Date End Date None, Provider, PCP - General 10/08/18 12/13/18 Jimmie Adrian MD PCP - General FAMILY PRACTICE 12/14/18 documented as of this encounter
--- OUTSIDE RECORDS SUMMARY | 2024-08-08 18:57 | XMS_ITS | Encounter Summary ---
Author Organization [facility] Address [facility] [place] [address] Care Team Providers Care Boiler Inspector Name Role Phone Phan Fairbanks MD Primary Care Provider Unavailable None, Provider Primary Care Provider Unavaila ble Jimmie Adrian MD Primary Care Provider Encounter Details Date Type Department Care Team (Late st Contact Info) Description 12/13/2016 [place] [address] Phan Fairbanks MD Social History Tobacco Use Types Packs/Day Years Used Date Smoking Tobacco: Never Assessed Comments Unknown Sex and Gender Information Value Date Recorded Sex Assigned at Not on file Legal Sex Female 6:54 PM CDT Gender Identity Not on file Sexual Orientation Not on file documented as of this encounter Plan of Treatment Not on file documented as of this encounter Visit Diagnoses Not on filedocumented in this encounter Care Teams Boiler Inspector Relationship Specialty Start Date End Date Phan Fairbanks MD PCP - General 08/03/14 None, ProviderMD PCP - General 10/08/18 12/13/18 Jimmie Adrian MD PCP - General FAMILY PRACTICE 12/14/18 documented as of this encounter
--- OUTSIDE RECORDS SUMMARY | 2024-08-08 18:57 | XMS_ITS | Clinical Summary ---
Author Organization [facility] Address [address] [place] [address] Phone Care Team Providers Care Sales Agent Financial Report Service Name Role Phone Jimmie Adrian MD Primary Care Provider [phone] Allergies Active Allergy Reactions Criticality Noted Date Comments Clarithromycin Other (See Comments) 12/13/2014 - - Morphine Anaphylaxis,Other (S ee Comments),Unknown High 12/13/2014 Doesn't remember Other reaction(s): Other - - Doesn't remember shaking Doesn't remember Other reaction(s): Other - - Doesn't remember Doesn't remember Nickel Rash,Swelling Low 03/04/2021 Penicillin Anaphylaxis,Hives High 03/04/2021 Medications levonorgestrel (MIRENA INTRAUTERINE) 06/08/2020 Activ e Active Problems No known active problems Family History Medical History Relation Name Comments Other Mother Jose Manuel Ankylosing Spon dilitis Colon Cancer Neg Hx Relation Name Status Comments Mother Jose Manuel Social History Tobacco Use Types Packs/Day Years Used Date Smoking Tobacco: Light Smoker Cigarettes Alcohol Use Standard Drinks/Week Comments Yes 2 (1 standard drink = 0.6 oz pur e alcohol) Comments No Sex and Gender Information Value Date Recorded Sex Assigned at Not on file Legal Sex Female 9:08 AM CDT Gender Identity Not on file Sexual Orientation Not on file Last Filed Vital Signs Vital Sign Reading Time Taken Comments Blood Pressure 113/72 03/07/2021 11:26 AM TYPE MAPPER Pulse 85 03/07/2021 11:26 AM TYPE MAPPER Temperature 36.4 C (97.6 F) 03/07/2021 11:15 AM TYPE MAPPER Respiratory Rate 23 03/07/2021 11:26 AM TYPE MAPPER Oxygen Saturation 98% 03/07/2021 11:26 AM TYPE MAPPER Inhaled Oxygen Concentration - - Weight 59.4 kg (131 lb) 03/07/2021 9:34 AM TYPE MAPPER Height 152.4 cm (5') 03/07/2021 9:34 AM TYPE MAPPER Body Mass Index 25.58 03/07/2021 9:34 AM TYPE MAPPER Plan of Treatment Health Maintenance Due Date Last Done Comments HEPATITIS B VACCINES (1 of 3 - 19+ 3-dose series) 01/18/2008 HPV/Cotest (21-29) 2010 CERVICAL CANCER SCREENING 2019 HPV/Cotest (30-65) 2019 PAP SMEAR 2019 INFLUENZA VACCINE (#1) 2023 12/09/2018 DTAP/TDAP/TD VACCINES (2 - T d or Tdap) 08/27/2027 08/26/2017 HPV VACCINES Aged Out No longer eligi ble based on patient's age to complete this topic Insurance [employer] CHOICE POS II Advance Directives For more information, please contact: [phone] * Full Code (Latest Code Status on File) Date Activated Date Inactivated Comments 03/07/2021 9:48 AM 03/07/2021 2:04 PM Care Teams Sales Agent Financial Report Service Relationship Specialty Start Date End Date Jimmie Adrian MD #[address] [address] PCP - General Internal Medicine 12/10/20
--- OUTSIDE RECORDS SUMMARY | 2024-08-08 18:57 | XMS_ITS | Clinical Summary ---
Author Organization [facility] Address [address] [facility] [address] Care Team Providers Care Bill Recapitulation Clerk Name Role Phone Unavailable Primary Care Provider Unavailabl e Source Comments [facility],non-owned Affiliates and Associated Physician Practices is amultiple site organization consisting of ambulatory clinics and hospital sitesin [place], [place], [place] and [place]. This disclosure is being madepursuant to the Care Everywhere program and may not contain all information available regarding this patient. Last updated [facility] Allergies Active Allergy Reactions Criticality Noted Date Comments Morphine Other 04/01/2017 Doesn't remember Nickel Rash Medium 04/01/2017 Penicillins Urticaria Medium 04/01/2017 Medications * Be aware that medications may not be up to date on this document. Alwaysverify current medications with the patient. MV-Min-Fe Fum-FA-DHA ( 1 PO) Acti ve Social History Tobacco Use Types Packs/Day Years Used Date Smoking Tobacco: Never Comments Unknown Sex and Gender Information Value Date Recorded Sex Assigned at Not on file Legal Sex Female 9:33 AM HEADER OPERATOR Gender Identity Not on file Sexual Orientation Not on file Last Filed Vital Signs Vital Sign Reading Time Taken Comments Blood Pressure 106/70 04/01/2017 10:39 AM HEADER OPERATOR Pulse 82 04/01/2017 10:39 AM HEADER OPERATOR Temperature 37.1 C (98.8 F) 04/01/2017 10:39 AM HEADER OPERATOR Respiratory Rate - - Oxygen Saturation - - Inhaled Oxygen Concentration - - Weight 52.2 kg (115 lb) 04/01/2017 10:39 AM HEADER OPERATOR Height 152.4 cm (5') 04/01/2017 10:39 AM HEADER OPERATOR Body Mass Index 22.46 04/01/2017 10:39 AM HEADER OPERATOR Plan of Treatment Health Maintenance Due Date Last Done Comments HIV SCREENING 01/18/2004 HEPATITIS C SCREENING 01/13/2007 DTAP/TDAP/TD VACCINES (1 - Tdap) 01/18/2008 HEPATITIS B VACCINE (1 of 3 - 19+ 3-dose series) 01/18/2008 COVID-19 VACCINE (1 - 2023-2 5 season) 2023 DEPRESSION SCREENING 02/10/2024 INFLUENZA VACCINE (Season Ended) 2024 ZOSTER VACCINE (1 of 2) 2039 HIB VACCINE Aged Out No longer eligi ble based on patient's age to complete this topic HPV VACCINE Aged Out No longer eligi ble based on patient's age to complete this topic MENINGOCOCCAL (Group B) VACC INE SHARED DECISION-MAKING Aged Out No longer eligibl e based on patient's age to complete this topic MENINGOCOCCAL GROUPS A/C/Y/W VACCINE Aged Out No longer eligible b ased on patient's age to complete this topic PNEUMOCOCCAL VACCINE Aged Out No long er eligible based on patient's age to complete [place] [address] [employer]
--- OUTSIDE RECORDS SUMMARY | 2024-08-08 18:58 | XMS_ITS | Encounter Summary ---
Author Organization [facility] Address [address] [place] [address] Care Team Providers Care Poultry Picking Machine Tender Name Role Phone Jimmie Adrian MD Primary Care Provider [phone] Pradeep Gilbert MD Unavailable [phone] Reason for Visit * Diagnostic Imaging (Routine) - Closed Specialty Diagnoses / Procedures Referred By Sung calix Referred To Contact Diagnoses Right hand pain Procedures XR Hand Right 3 or More Views Lamin Oquendo MD [address] [place] [address] Phone: tel: fax: [facility] Referral ID Status Reason Start Date Expiration Date Visits Re quested Visits Authorized [id number] Closed 08/08/2024 09/07/2025 1 1 Encounter Details Date Type Department Care Team (Late st Contact Info) Description 08/08/2024 10:30 AM CDT Ancillary Procedure [facility] Hand Surgery [address] [place] [address] [address] [place] [id number] Arrived Social History Tobacco Use Types Packs/Day Years Used Date Smoking Tobacco: Former Cigarettes 0.3 5 2 010 - 2015 Smokeless Tobacco: Never Alcohol Use Standard Drinks/Week Comments Not Currently 0 (1 standard drink = 0.6 oz pur e alcohol) AUDIT-C Answer Date Recorded Q1: How often do you have a drink containing alcohol? Never 05/28/2023 Q2: How many drinks containi ng alcohol do you have on a typical day when you are drinking? Patient does not drink Q3: How often do you have si x or more drinks on one occasion? Never 05/28/2023 Personal Safety Answer Date Recorded Have you ever been in or are you currently in a harmful physical or emotional relationship or is someone making you feel afraid or unsafe? Denies 08/01/2024 Comments No Sex and Gender Information Value Date Recorded Sex Assigned at Not on file Legal Sex Female 9:46 PM CDT Gender Identity Not on file Sexual Orientation Not on file documented as of this encounter Plan of Treatment Not on file documented as of this encounter Procedures Procedure Name Priority Date/Time Associated Diagnosis Comments XR HAND RIGHT 3 OR MORE VIEWS Schedule Routine, Read Routine (OP Routine) 08/08/2024 10:50 AM CDT Right hand pain documented in this encounter Results * XR Hand Right 3 or More Views (08/08/2024 10:50 AM CDT) Anatomical Region Laterality Modality Upper Extremities, Hand Right Computed Radiography Narrative 08/08/2024 10:50 AM CDT AP lateral and oblique x-rays of the right long finger on the mini C-arm today could show an avulsion injury at the palmar surface of the long finger PIP joint Lamin Oquendo MD IMG XR PROCEDURES Final Result documented in this encounter Visit Diagnoses Not on filedocumented in this encounter Care Teams Poultry Picking Machine Tender Relationship Specialty Start Date End Date Jimmie Adrian MD PCP - General Family Medicine 04/11/19 Pradeep Gilbert MD [address] [place] [id number] Surgery 09/23/22 documented as of this encounter
--- OUTSIDE RECORDS SUMMARY | 2024-08-08 18:58 | XMS_ITS | Encounter Summary ---
Author Organization [facility] Address [facility] [place] [address] Care Team Providers Care Petroleum Refinery Worker Name Role Phone Jimmie Adrian MD Primary Care Provider Encounter Details Date Type Department Care Team (Late Contact Info) Description 05/07/2020 Hospital Follow-up Call [facility] [place] [address] Ioana Crooks, RN Social History Tobacco Use Types Packs/Day Years Used Date Smoking Tobacco: Former Cigarettes Q uit: 12/14/2015 Smokeless Tobacco: Never Comments:socially for about 4 years Alcohol Use Standard Drinks/Week Comments No 0 (1 standard drink = 0.6 oz pur e alcohol) Depression Answer Date Recor ded Last EPDS Total Score 5 04/19/2020 Last EPDS Self Harm Result Unrecognized value Comments No Sex and Gender Information Value Date Recorded Sex Assigned at Not on file Legal Sex Female 6:54 PM CDT Gender Identity Not on file Sexual Orientation Not on file COVID-19 Exposure Response Date Recorded In the last month, have you been in contact with someone who was confirmed or suspected to have Coronavirus / COVID-19? No / Unsure 04/19/2020 2:36 AM HIGH TENSION TESTER documented as of this encounter Functional Status * RETIRED Are you deaf or do you have serious difficulty hearing Answer Date of Assessment Author Status No 04/19/2020 3:05 AM HIGH TENSION TESTER Activ e * RETIRED Are you blind or do you have serious difficulty seeing, even when wearing glasses? Answer Date of Assessment Author Status No 04/19/2020 3:05 AM HIGH TENSION TESTER Activ e * Do you have serious difficulty walking or climbing stairs? Answer Date of Assessment Author Status No 04/19/2020 3:05 AM Opal Bardales RN Active * Do you have difficulty dressing or bathing? Answer Date of Assessment Author Status No 04/19/2020 3:05 AM Opal Bardales RN Active * Because of a physical, mental, or emotional condition, do you have difficulty doing errands alone such as visiting a doctor's office or shopping? Answer Date of Assessment Author Status No 04/19/2020 3:05 AM Opal Bardales RN Active documented as of this encounter Mental Status * Because of a physical, mental, or emotional condition, do you have serious difficulty concentrating, remembering, or making decisions? Answer Entry Date Author Status No 04/19/2020 3:05 AM Opal Bardales RN Active documented in this encounter Plan of Treatment Not on file documented as of this encounter Visit Diagnoses Not on filedocumented in this encounter Care Teams Petroleum Refinery Worker Relationship Specialty Start Date End Date Jimmie Adrian MD PCP - General FAMILY PRACTICE 12/14/18 documented as of this encounter
--- OUTSIDE RECORDS SUMMARY | 2024-08-08 18:58 | XMS_ITS | Encounter Summary ---
Author Organization [facility] Healthcare Address [address] [place] [address] Care Team Providers Care Barber Instructor Name Role Phone Jimmie Adrian MD Primary Care Provider [phone] Pradeep Gilbert MD Unavailable [phone] Reason for Referral * Diagnostic Imaging (Routine) - Closed Specialty Diagnoses / Procedures Referred By Sung t Referred To Contact Diagnoses Right hand pain Procedures XR Hand Right 3 or More Views Lamin Oquendo MD [address] [place] [address] [address] [place] [address] Phone: tel: fax: [facility] Medical Group Referral ID Status Reason Start Date Expiration Date Visits Re quested Visits Authorized [id number] Closed 08/08/2024 09/07/2025 1 1 Reason for Visit * Reason Comments Pain Encounter Details Date Type Department Care Team (Late st Contact Info) Description 08/08/2024 10:00 AM CDT Office Visit [facility] Medical Group Hand Surgery [address] [address] [place] [address] Lamin Oquendo MD [address] [place] [address] [address] [place] [address] Right hand pain (Primary Dx); Injury of right hand, initial encounter Social History Tobacco Use Types Packs/Day Years [...] on file documented as of this encounter Progress Notes * Lamin Oquendo MD - 08/08/2024 10:00 AM CDT Images from the original note were not included. This patient has verbally consented to recording this visit in order to utilize AI technology in generating this note. Patient ID: Nika Pollock is a 34 y.o. female. Visit Date: 08/08/2024 Referring Provider: Jimmie Adrian MD Chief Complaint: Seen in consultation from Jimmie Adrian MD after having an injury to the right hand HPI: History of Present Illness Nika Pollock is a 34 year old female who presents with right hand pain following an injury at work.She was referred by her workplace healthcare provider for further evaluation after an ER visit. On August 01, 2024, she sustained an injury to her right hand while working at a intermediate, resulting edwige fracture of the right middle finger. The pain is rated at 5 out of 10, primarily located on the right long finger and radiating to the top of her hand. Pain increases when the finger is splinted and stiff, and decreases when the finger is curled. Mild tenderness is present at the right long finger palmar surface at the PIP joint, with stiffness when making a fist. She has been off work since the injury due to workplace restrictions that do not allow for light duty or work with limitations. She is eager to return to work, as her job requires significant use of her hands, such as putting on restraints. Past Medical History: Diagnosis Date Anemia Breast mass in female Right. Constipation Irritable bowel syndrome Miscarriage recurrent Molar history Ovarian cyst Pneumonia Past Surgical History: Procedure Laterality Date ADENOIDECTOMY BREAST BIOPSY Right 04/10/2022 DILATION AND CURETTAGE OF UTERUS x 3 TONSILLECTOMY Allergies Allergen Reactions Penicillins Anaphylaxis and Hives Nickel Rash Alphagal [3 Alpha-Gal Dairy Intolerant (Xnyzcrbfz-Djanv-4,3-Galactose)] Nausea & Vomiting All meat and dairy products. Has EPI pen. Morphine Other (See comments) Shaking. Pt received this post-op, states its just a sensitivity. Physical Exam: Her gait is within normal limits. Her mood and affect are appropriate. She is well nourished. She is alert and oriented to time and place. Physical Exam MUSCULOSKELETAL: Mild tenderness to palpation at right long finger palmar surface at PIP joint. Normal range of motion, motor strength, and stability of right hand. NEUROLOGICAL: Light touch grossly intact at right hand. SKIN: Skin intact. Xray / Imaging: Results RADIOLOGY Right hand X-ray: No fracture in the right hand. Fracture in the middle phalanx of the right middlefinger. (08/01/2024) Right middle finger X-ray: AP lateral and oblique x-rays. Volar plate avulsion fracture at the baseof the middle phalanx. (08/01/2024) AP lateral and oblique x-rays of the right long finger on the mini C-arm today could show an avulsion injury at the palmar surface of the long finger PIP joint 1. Right hand pain 2. Injury of right hand, initial encounter PLAN: Assessment & Plan Volar plate avulsion fracture, right middle phalanx Sustained a volar plate avulsion fracture of the right middle phalanx at the base on August 01, 2024.The fracture is minor with mild tenderness at the right long finger palmar surface at the PIP joint. Normal range of motion, motor strength, and stability. Skin is intact, and light touch is grossly intact. Soreness present, but expected to improve over the next week. Healing time varies, but normal function anticipated without restrictions. - Discontinue splinting of the right middle finger. - Allow use of the right hand without restrictions. - Provide a note for return to work on August 15, 2024. All questions were answered Procedures documented in this encounter Plan of Treatment [...] Result documented in this encounter Visit Diagnoses Diagnosis Right hand pain- Primary Pain in soft tissues of limb Injury of right hand, initial encounter documented in this encounter Care Teams Barber Instructor Relationship Specialty Start Date End Date Jimmie Adrian MD PCP - General Family Medicine 04/11/19 Pradeep Gilbert MD [address] [place] [id number] Surgery 09/23/22 documented as of this encounter
--- OUTSIDE RECORDS SUMMARY | 2024-08-08 18:58 | XMS_ITS | Referral Summary ---
Author Organization [facility] Address [address] [place] [address] Care Team Providers Care Hand Wrapper Operator Name Role Phone Jimmie Adrian MD Primary Care Provider [phone] Pradeep Gilbert MD Unavailable [phone] Encounters Date Type Department Care Team Description 08/08/2024 10:30 AM CDT Ancillary Procedure [facility] Medical [facility] Hand Surgery [address] [place] [address] [place] [phone] Arrived 08/08/2024 10:00 AM CDT Office Visit [facility] Hand Surgery [address] [place] [phone] Lamin Oquendo MD Right hand pain (Primary Dx); Injury of right hand, initial encounter 08/01/2024 6:56 PM CDT - 08/01/2024 10:17 PM CDT Emergency [facility] Emergency Department [address] [place] [address] Closed avulsion fracture of middle phalanx of finger, initial encounter (Primary Dx) Discharge Disposition: Discharge to home or self care from Last 3 Months Allergies Active Allergy Reactions Criticality Noted Date Comments 3 Alpha-Gal Dairy Intolerant (Whcoeyqaf-Ymobh-8,3-Ga lactose) Nausea & Vomiting Low 04/05/2024 All meat and dairy products. Has EPI pen. Morphine Other (See comments) Low 04/01/2017 Shaking. Pt received this post-op, states its just a sensitivity. Nickel Rash Medium 10/11/2014 Penicillins Anaphylaxis,Hives High 10/11/2014 Medications hydrOXYzine (VISTARIL) 25 mg capsuleIndicatio ns:S/P laparoscopy Take 1-2 capsules (25-50 mg total) by mouth 3 (three) times a day as needed for itching, allergies or anxiety (Or insomnia) Or nausea 30 capsule 1 4 Active Active Problems Problem Noted Date Diagnosed Date Right hand pain 08/08/2024 Injury of right hand 08/08/2024 Mass of nipple 09/22/2022 Lesion of right nipple 05/19/2022 Abnormal MRI, breast 04/03/2022 Nipple discharge 03/16/2022 Skin lesion of breast 03/16/2022 Immunizations Immunization Administration Dates Next Due Influenza, Quadrivalent, Spl it, Preservative Free, Intramuscular 02/23/2020 Influenza, Trivalent, IM (MDV) 12/09/2018 Tdap 02/23/2020,08/26/2017 Social History Tobacco Use Types Packs/Day Years Used Date Smoking Tobacco: Former Cigarettes 0.3 5 2 010 - 2014 Smokeless Tobacco: Never Tobacco Cessation:Counseling Given: Not Answered Alcohol Use Standard Drinks/Week Comments Not Currently [...] Sign Reading Time Taken Comments Blood Pressure 115/74 08/01/2024 10:16 PM CDT Pulse 83 08/01/2024 10:16 PM CDT Temperature 37.1 C (98.7 F) 08/01/2024 6:48 PM CDT Respiratory Rate 17 08/01/2024 10:16 PM CDT Oxygen Saturation 98% 08/01/2024 10:16 PM CDT Inhaled Oxygen Concentration - - Weight 49.9 kg (110 lb) 08/01/2024 6:48 PM CDT Height 152.4 cm (5') 08/01/2024 6:48 PM CDT Body Mass Index 21.48 08/01/2024 6:48 PM CDT Plan of Treatment Not on file Medical Devices Implanted Type Area Camera Repairer Device Identifier Shelf Expiration Date Model / Serial / Lot Bard Peripheral Vascular Ultraclip Bard 17ga 10cm 2 Trigger Permanent Ultrasound [id number] - [id number] Implanted:Qty: 1 on 04/10/2022 at [facility] [employer] [id number] / / Procedures Procedure Name Priority Date/Time Associated Diagnosis Comments XR HAND RIGHT 3 OR MORE VIEWS Schedule Routine, Read Routine (OP Routine) 08/08/2024 10:50 AM CDT Right hand pain XR HAND RIGHT 3 OR MORE VIEWS ED 08/01/2024 7:56 PM CDT from Last 3 Months Results * XR Hand Right 3 or More Views (08/08/2024 10:50 AM CDT) Anatomical Region Laterality Modality Upper Extremities, Hand Right Computed Radiography Narrative 08/08/2024 10:50 AM CDT AP lateral and oblique x-rays of the right long finger on the mini C-arm today could show an avulsion injury at the palmar surface of the long finger PIP joint us Lamin Oquendo MD IMG XR PROCEDURES Final Result * XR Hand Right 3 or More Views (08/01/2024 7:56 PM CDT) Anatomical Region Laterality Modality Upper Extremities, Hand Right Computed Radiography 08/01/2024 9:28 PM CDT Narrative 08/01/2024 9:29 PM CDT EXAM DESCRIPTION: 1. XR HAND RIGHT 3 OR MORE VIEWS REASON FOR STUDY: Smashed it in a dumpster Pain to 5th digit after slamming it in a dumpster No prior surgery FINDINGS: Three views submitted without comparison. Small volar plate avulsion fracture of the long finger middle phalanx base is present with mild soft tissue swelling. No acute small finger fracture identified. The remaining joint spaces are normal. IMPRESSION: 1. Small volar plate avulsion fracture of the right long finger middle phalanx base with mild soft tissue swelling. This can be correlated with physical exam. 2. No acute small finger fracture identified. THIS IS AN ELECTRONICALLY VERIFIED FINAL REPORT 08/01/2024 9:29 PM - Electronically signed by Jimmie Dorman M.D. MF: [email or web address] Report ID: [id number] Reading Location: [id number] Procedure Note Jimmie Dorman MD - 08/01/2024 EXAM DESCRIPTION: 1. XR HAND RIGHT 3 OR MORE VIEWS REASON FOR STUDY: Smashed it in a dumpster Pain to 5th digit after slamming it in a dumpster No prior surgery FINDINGS: Three views submitted without comparison. Small volar plate avulsion fracture of the long finger middle phalanx baseis present with mild soft tissue swelling. No acute small finger fracture identified. The remaining joint spaces are normal. IMPRESSION: 1. Small volar plate avulsion fracture of the right long finger middle phalanx base with mild soft tissue swelling. This can be correlated with physical exam. 2. No acute small finger fracture identified. THIS IS AN ELECTRONICALLY VERIFIED FINAL REPORT 08/01/2024 9:29 PM - Electronically signed by Jimmie Dorman M.D. MF: [email or web address] Report ID: [id number] Reading Location: [id number] Fan Malik NP IMG XR PROCEDURES Final Res ult from Last 3 Months Insurance [employer] Care Teams Hand Wrapper Operator Relationship Specialty Start Date End Date Jimmie Adrian MD PCP - General Family Medicine 04/11/19 Pradeep Gilbert MD [address] [place] [id number] Surgery 09/23/22
--- OUTSIDE RECORDS SUMMARY | 2024-08-08 18:58 | XMS_ITS | Clinical Summary ---
Author Organization [facility] Address [address] [place] [address] Phone Care Team Providers Care Horse Show Judge Name Role Phone Jimmie Adrian MD Primary Care Provider [phone] Allergies Active Allergy Reactions Criticality Noted Date Comments Alpha-Gal Diarrhea,Hives,Itchi ng,Nausea,Rash,Run ny Nose 06/21/2024 Morphine Anaphylaxis High 03/24/2018 Nickel Rash,Itching,Swelling High 03/24/2018 Penicillins Anaphylaxis High 03/24/2018 Medications Cetirizine HCl (ZYRTEC PO) Take by mouth in the morning and at bedtime. Active Fluticasone Furoate (Flonase Sensimist) 27.5 MCG/SPRAY Suspension 1 [place] by Nasal route daily. Active EPINEPHRINE HCL, ANAPHYLAXIS, IM by Intramuscular route. Takes as needed Active Auvi-Q 0.3 MG/0.3ML Solution Auto-injector inject into thigh through clothing as needed FOR SEVERE allergic reaction -- call 911 Active Active Problems Problem Noted Date Diagnosed Date Allergic reaction to alpha-gal 12/29/2023 Physical exam, annual (Adult) 03/30/2018 Encounters Date Type Department Care Team Description 06/21/2024 10:00 AM CDT Office Visit [facility] Medical Group - Family Medicine [facility] [address] [place] [address] Jimmie Adrian MD Acute non-recurrent maxillary sinusitis (Primary Dx); Alpha-gal syndrome Discharge Disposition: Discharged to home or Selfcare 06/21/2024 Travel 06/21/2024 Nurse Triage [facility] [address] [place] [phone] Jimmie Adrian MD Appointment; Headache from Last 3 Months Immunizations Immunization Administration Dates Next Due Influenza Vaccine greater than 3 yrs 12/09/2018 Influenza Vaccine, Quadrivalent, PF 02/23/2020 Influenza, Seasonal, Injectable, Undefined 12/09 TDAP Vaccine 02/23/2020,08/26/2017 Family History Medical History Relation Name Comments No Known Problems Brother ADD / ADHD Father Ian High Cholesterol Father Ian Rashes/Skin Problems Father Ian Heart Attack Maternal Grandfather Ko Diabetes Maternal Grandmother May Osteoarthritis Maternal Grandmother May Autoimmune Disease Mother Jose Manuel Hypotension Mother Jose Manuel Migraines Mother Jose Manuel Osteoarthritis Mother Jose Manuel Thyroid Disease Mother Jose Manuel Hypothyroidi sm Stroke Paternal Grandfather Ian Stroke Paternal Grandmother Elena Asthma Sister 1 Sole Learning Disability Sister 1 Sole Migraines Sister 1 Sole Endometriosis Sister 2 Missy Migraines Sister 2 Missy Rashes/Skin Problems Sister 2 Missy Eczema No Known Problems Sister 3 Other-comment Sister 4 Still born Relation Name Status Comments Brother Alive Father Ian Alive Maternal Grandfather Ko Maternal Grandmother May Mother Jose Manuel Alive Paternal Grandfather Ian Paternal Grandmother Elena Sister 1 Sole Alive Sister 2 Missy Alive Sister 3 Alive Sister 4 Social History Tobacco Use Types Packs/Day Years Used Date Smoking Tobacco: Former Cigarettes Q uit: 2016 Smokeless Tobacco: Never Tobacco Cessation:Counseling Given: No Comments:On social Alcohol Use Standard Drinks/Week Comments Yes 0 (1 standard drink = 0.6 oz pur e alcohol) rare [facility] Utilities Answer Date Recorded In the past 12 months has [employer], gas, oil, or water [employer] threatened to shut off services in your home? No 06/21/2024 Social Connection and Isolation Panel Answer Date Recorded In a typical week, how many times do you talk on the phone with family, friends, or neighbors? More than three times a week 06/21/2024 How often do you get togethe r with friends or relatives? Twice a week 06/21/2024 How often do you attend [facility] or mormonism services? More than 4 times per year 06/21/2024 Do you belong to any clubs o r organizations such as temple groups, unions, fraternal or athletic groups, or school groups? Yes 06/21/2024 How often do you attend meet ings of the clubs or organizations you belong to? More than 4 times per year 06/21/2024 Are you , , di vorced, , never , or living with a partner? 06/21/2024 AUDIT-C Answer Date Recorded Q1: How often do you have a drink containing alc ohol? Monthly or less 06/21/2024 Q2: How many drinks containi ng alcohol do you have on a typical day when you are drinking? 1 or 2 06/21/2024 Q3: How often do you have si x or more drinks on one occasion? Less than monthly 06/21/2024 Overall Financial Resource Strain (CARDIA) Answe r Date Recorded How hard is it for you to pa y for the very basics like food, housing, medical care, and heating? Not hard at all 06/21/2024 PHQ-2 Answer Date Recorded Total Score - Questions 1-9 0 06/09 [facility] - Occupational Stress Questionnaire Answer Date Recorded Do you feel stress - tense, restless, nervous, or anxious, or unable to sleep at night because your mind is troubled all the time - these days? Only a little 06/21/2024 Exercise Vital Sign Answer Date Recorde d On average, how many days pe r week do you engage in moderate to strenuous exercise (like a brisk walk)? 3 days 06/21/2024 On average, how many minutes do you engage in exercise at this level? 60 min 06/21/2024 Hunger Vital Sign Answer Date Recorded Within the past 12 months, y ou worried that your food would run out before you got the money to buy more. Never true 06/22/19 25 Within the past 12 months, t he food you bought just didn't last and you didn't have money to get more. Never true 06/21/2024 PRAPARE - Transportation Answer Date Re corded In the past 12 months, has l ack of transportation kept you from medical appointments or from getting medications? No 06/09 In the past 12 months, has l ack of transportation kept you from meetings, work, or from getting things needed for daily living? No 06/21/2024 Housing Stability Vital Sign Answer Sid e Recorded In the last 12 months, was t here a time when you were not able to pay the mortgage or rent on time? No 06/21/2024 In the past 12 months, how m any times have you moved where you were living? 0 06/21/2024 At any time in the past 12 m [facility], were you homeless or living in a custodial (including now)? No 06/21/2024 Education Answer Date Recorded What is the highest level of school you have completed or the highest degree you have received? 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 Not on file Not on file Not on file Last Filed Vital Signs Vital Sign Reading Time Taken Comments Blood Pressure 94/62 06/21/2024 9:51 AM CDT Pulse 104 06/21/2024 9:51 AM CDT Temperature 36.3 C (97.3 F) 06/21/2024 9:51 AM CDT Respiratory Rate 16 06/21/2024 9:51 AM CDT Oxygen Saturation 97% 06/21/2024 9:51 AM CDT Inhaled Oxygen Concentration - - Weight 52.6 kg (116 lb) 06/21/2024 9:51 AM CDT Height 152.4 cm (5') 06/21/2024 9:51 AM CDT Body Mass Index 22.65 06/21/2024 9:51 AM CDT Plan of Treatment Health Maintenance Due Date Last Done Comments Human Papillomavirus (HPV) Immunization (1 - 3-dose series) 01/18/2004 Hepatitis B Immunization (1 of 3 - 19+ 3-dose series) 01/18/2008 Pap Smear 2010 Cervical Cancer Screening (CCS) 2019 HPV/Cotest 2019 SARS-COV-2 Immunization ( season) 2023 06/14/2021, 09/13/2020, 08/19/2020 Influenza Immunization (Seas on Ended) 2024 02/23/2020, 12/09/2018, 12/09/2018 Td Immunization Every 10 Yea rs (Adults With 1 Tdap) 02/22/2030 02/23/2020, 08/26/2017 Respiratory Syncytial Virus (RSV) Immunization (Adult) (1 - 1-dose 75+ series) 01/18/2064 DTaP/Tdap/Td Immunization Discontinued 2020, 08/26/2017 Hepatitis C Virus (HCV) Screening Completed 10/07/2022 Meningococcal Immunization (ACWY) Aged Out No longer eligible based on patient's age to complete this topic Pneumococcal Immunization Combined Aged Out No longer eligible based on patient's age to complete this topic Rotavirus Immunization Aged Out No lo nger eligible based on patient's age to complete this topic Procedures Procedure Name Priority Date/Time Associated Diagnosis Comments HEPATITIS PANEL ACUTE (AHP) Routine 10/07/2022 3:37 PM CDT RUQ pain from Last 3 Months or Most Recently Relevant to Health Maintenance Results * HEPATITIS PANEL ACUTE (AHP) (10/07/2022 3:37 PM CDT) HEPATITIS A IGM ANTIBODY NON DETECTED NON DETECTED [facility] [id number] B 10/08/2022 3:45 PM CDT [facility] Comment: IGM Antibodies to HAV not detected. Does not exclude early acute or recovered HAV infection. HEP B CORE AB (IGM) NON DETECTED NON DETECTED [facility] [id number] B 10/08/2022 3:45 PM CDT [facility] Comment:IGM anti-HBC not det ected. Does not exclude the possibility of exposure to or infection with HBV. HEPATITIS B SURFACE ANTIGEN NON DETECTED NON DETECTED [facility] [id number] B 10/08/2022 3:45 PM CDT [facility] Comment:A nonreactive test r esult does not exclude the possibility of exposure to or infection with Hepatitis B virus. A nonreactive test result in individuals with prior exposure to hepatitis B may be due to antigen levels below the detection limit of this assay or lack of antigen reactivity to the antibodies in this assay. hepatitis C antibody 0.20 <1 S/[facility] [id number] B 10/08/2022 3:45 PM CDT [facility] Comment: Signal/Cutoff ratio < 0.79 is Nondetected Signal/Cutoff ratio 0.80-0.99 is Grayzone Signal/Cutoff ratio > 0.99 is Detected Supplemental assays are recommended if signal/cutoff ratio is >/=1.00. Signal/cutoff ratio result >/= 5.00 is 97% predictive of positivity for recombinant immunoblot assay (RIBA) and will be reported to the [place] Department of Public Health as required. Blood Venipuncture / Unknown 10/07/2022 3:37 PM CDT 10/07/2022 4:35 PM CDT us Jimmie Adrian MD HEMATOLOGY ORDERABLES Final R esult [facility] [address] [place] [address], from Last 3 Months or Most Recently Relevant to Health Maintenance Insurance [facility] Care Teams Horse Show Judge Relationship Specialty Start Date End Date Jimmie Adrian MD [address] [address] PCP - General Family Medicine 03/30/18
--- OUTSIDE RECORDS SUMMARY | 2024-08-08 18:58 | XMS_ITS | Encounter Summary ---
Author Organization [facility] Address [facility] [place] [address] Care Team Providers Care Vice President Of Academic Affairs Name Role Phone Jimmie Adrian MD Primary Care Provider [phone] Encounter Details Date Type Department Care Team (Late st Contact Info) Description 03/24/2019 Prep for Procedure [facility] [address] [place], [place] [id number] Basilia Salazar FNP [address] [place], [place] [id number] Anesthesia Record Procedure Summary Procedure Name Responsible Anesthesiologist Anesthesia Start Time Anesthesia Stop Time DILATATION & CURETTAGE SUCTION WITH ULTRASOUND (Uterus) Jimmie Perdomo MD 03/25/19 0838 03/25/19 0925 Events Date Time Event Comment 03/25/2019 0718 0719 AN Anesthesia Prepped 0738 AN DOPER Prepped 0838 An Start Patient ID and consent checked and patient reassessed. 0840 An Start Data 0844 Preoxygenation 0846 An Induction 0847 An Intubation 0852 Anesthesia Ready 0916 An Emergence 0918 Face Mask Applied 0920 an stop data 0925 An Stop Meds * Agents No agents on file. * Blood No blood administrations on file. Lines, Drains, and Airways Type Details Placement Removal Peripheral IV Placement Date: 03/25/19; Placement Time: 0640; Placed Outside of This Facility?: No; Size: 18 G; Orientation: Right; Location: Wrist; Site Prep: Chlorhexidine; Local Anesthetic: None; Insertion attempts: 1; Ultrasound-guided Placement?: No; Patient Tolerance: Tolerated well; Removal Date: 03/25/19; Removal Time: 1040; Removal Reason: Patient Discharged 03/25/19 0640 by Sydnie Galvez RN 03/25/19 1040 by Ale Au RN ETT Placement Date: 03/25/19; Placement Time: 0847; Placed Outside of This Facility?:No; Size (mm) : 7; Endotracheal: Oral, Stylet used; Blade Type: MAC 4; Placement Method: Direct Laryngoscopy (blade type in comment), Cricoid pressure, Rapid Sequence Induction; View Grade: 1; Viewable Anatomy: Epiglottis, Arytenoid, Vocal cords; Insertion Attempts: 1; Placement Verified By: Auscultation, Chest Rise, Capnography; Placed By: DOPER; Removal Date: 03/25/19; Removal Time: 2200 03/25/19 0847 by Maty Ayon CRNA 03/25/19 2200 by Lydia Walker RN Mejia Catheter 03/25/19; 0856; No; Urologic Surgical intervention - Bladder, Prostate, NEGATIVE NOTCHER procedures; 1; Hand hygiene performed, Site cleansed with sterile antiseptic, Sterile gloves, drape and lubricant used, Catheter inserted using aseptic technique; Latex, Straight-tip; 14 Fr.; Other (STRAIGHT CATHED PRIOR TO START OF PROCEDURE) 03/25/19 0856 by Lara Rangel RN 03/25/19 0857 by Lara Rangel RN Surgical/Incision 03/25/19; 0922; Vagi na; jaquelin pad; 03/25/19; 1256 03/25/19 0922 by Oleg You RN 03/25/19 1256 by Automatic Discharge Provider Surgical/Incision 03/25/19; 0937; Surg ical Wound; Perineum; PAD SANITARY MAXI 11; 03/25/19; 1040; (patient discharged) 03/25/19 0937 by Lara Rangel RN 03/25/19 1040 by Ale Au RN documented in this encounter Social History Tobacco Use Types Packs/Day [...] on file documented as of this encounter Results * TYPE & SCREEN (03/25/2019 6:39 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74 4.20 - 5.40 x10'6/uL 03/25/2019 7:12 AM [facility] HGB 13.3 12.0 - 16.0 G/DL 03/25/2019 7:12 AM [facility] HCT 40.9 38.0 - 48.0 % 03/25/2019 7:12 AM [facility] MCV 86.3 81.0 - 99.0 FL 03/25/2019 7:12 AM [facility] MCH 28.1 27.0 - 31.0 PG 03/25/2019 7:12 AM [facility] MCHC 32.5 32.0 - 36.0 G/DL 03/25/2019 7:12 AM [facility] RDW 12.9 11.5 - 14.5 % 03/25/2019 7:12 AM [facility] PLT 345 130 - 400 x10'3/uL 03/25/2019 7:12 AM [facility] MPV 9.6 9.3 - 12.2 FL 03/25/2019 7:12 AM [facility] DIFFERENTIAL TYPE AUTOMATED DIFFERENTIAL 03/25/2019 7:12 AM [facility] NEUTROPHILS % 61.1 % 03/25/2019 7:12 AM [facility] LYMPHOCYTES % 27.0 % 03/25/2019 7:12 AM [facility] MONOCYTES % 8.3 % 03/25/2019 7:12 AM [facility] EOSINOPHILS 2.7 % 03/25/2019 7:12 AM [facility] BASOPHILS 0.7 % 03/25/2019 7:12 AM [facility] IMMATURE GRANS % 0.2 % 03/25/19 20 7:12 AM [facility] ABS. NEUTROPHILS TOTAL 5.01 1.80 - 7.70 x10'3/uL 03/25/2019 7:12 AM [facility] ABS. LYMPHOCYTES 2.22 1.00 - 4.80 x10'3/uL 03/25/2019 7:12 AM [facility] ABS. MONOCYTES 0.68 0.24 - 0.86 x10'3/uL 03/25/2019 7:12 AM [employer]WORKING MACHINIST [facility] ABS. EOSINOPHILS 0.22 0.04 - 0.36 x10'3/uL 03/25/2019 7:12 AM [employer]WORK[employer] MACHINIST [facility] ABS. BASOPHILS 0.06 0.01 - 0.08 x10'3/uL 03/25/2019 7:12 AM [employer]WORK[employer] MACHINIST [facility] ABS. IMMATURE GRANULOCYTES 0.02 0.00 - 0.49 x10'3/uL 03/25/2019 7:12 AM [employer]WORKING MACHINIST [facility] 03/25/2019 6:39 AM WOODWORKING MACHINIST Basilia Salazar [facility] Final R esult [facility] [address] [place] [address], documented in this encounter Visit Diagnoses Diagnosis Preop examination- Primary Preoperative examination, unspecified documented in this encounter Care Teams Vice President Of Academic Affairs Relationship Specialty Start Date End Date Jimmie Adrian MD PCP - General FAMILY PRACTICE 12/14/18 documented as of this encounter
--- OUTSIDE RECORDS SUMMARY | 2024-08-08 18:58 | XMS_ITS | Patient Health Record ---
Author Organization [facility] [employer] [place] ([address]) Address [address] [facility] [address] [place] [address] Care Team Providers Care Restaurant Manager Name Role Phone Jimmie Adrian Primary Care Provider Bautista See Unavailable [phone] Marleny Mendoza Unavailable [phone] Allergies Allergen (clinical drug ingredient) Drug/Non Drug Allergy documented on EMR Reaction Allergy Type Onset Date Status morphine Morphine hives Drug Allergy Active Penicillin anaphylaxis Drug Allergy Acti ve Results Component Value Reference Range Notes MILK (F2) IGE Reviewed date:10/08/2023 12:29:34 PM Interpretation:Abnormal Performing Lab:[facility], [facility], [address] [place], [address] Mainor Hidalgo MD Notes/Report: NON-FASTING; NON-FASTING COW'S MILK (F2) IGE 0.40 CLASS 1 IMMUNOGLOBULIN E Reviewed date:10/08/2023 12:28:46 PM Interpretation:Normal Performing Lab:[facility], [facility], [address] [place], [address] Mainor Hidalgo MD Notes/Report: NON-FASTING; NON-FASTING IMMUNOGLOBULIN E 55 <TH=180 kU/L INTERPRETATION Reviewed date:10/08/2023 12:29:44 PM Interpretation:Interpretation Performing Lab:[facility], [facility], [address] [place], [address] Mainor Hidalgo MD Notes/Report: NON-FASTING; NON-FASTING INTERPRETATION [...] analytical performance characteristics have been determined by [employer]. It has not been cleared or approved by the U.S. Food and Drug Administration. This assay has been validated pursuant to the CLIA regulations and is used for clinical purposes. MILK COMPONENT PANEL Reviewed date:10/08/2023 12:28:34 PM Interpretation:Abnormal Performing Lab:[facility], [facility], [address] [place], [address] Mainor Hidalgo MD Notes/Report: NON-FASTING; NON-FASTING ALPHA-LACTALBUMIN [...] 8. Additional information can be found at [email or web address].[email or web address] ALPHA GAL PANEL Reviewed date:10/08/2023 12:29:13 PM Interpretation:Abnormal Performing Lab:[facility], [address] [place], [address] Mainor Hidalgo MD Notes/Report: NON-FASTING; NON-FASTING BEEF (F27) IGE 0.23 CLASS 0/1 MCCLAIN (F88) IGE <0.10 CLASS 0 PORK (F26) IGE <0.10 CLASS 0 GALACTOSE ALPHA 1,3 GALACTOSE IGE 0.25 <0.10 kU/L Results above 0.1 kU/L indicate an allergen-specific IgE sensitization to navhgzllz-p-9,3-galactose, and such patients are at risk for [...] method. Additional information can be found at http://www.[employer] INTERPRETATION (Not yet revi ewed by provider) Interpretation: Performing Lab:[facility], [address], [place], [address] Mainor Hidalgo MD Notes/Report: NON-FASTING; NON-FASTING; NON-FASTING INTERPRETATION Specific Level of Allergen [...] analytical performance characteristics have been determined by [employer] [facility] [employer]. It has not been cleared or approved by the U.S. Food and Drug Administration. This assay has been validated pursuant to the CLIA regulations and is used for clinical purposes. COMPREHENSIVE METABOLIC PANE L Reviewed date:07/27/2024 08:15:34 AM Interpretation:Abnormal Performing Lab:RE[facility], [facility], [address], [place], [address] Mainor Hidalgo MD Notes/Report: NON-FASTING; NON-FASTING; NON-FASTING GLUCOSE 79 65-99 mg/dL Fasting reference interval UREA NITROGEN (BUN) 12 7-25 mg/dL CREATININE 0.96 0.50-0.97 mg/dL EGFR 79 > OR = 60 mL/min/1.73m2 BUN/CREATININE RATIO SEE NOTE: 6-22 (calc) Not Reported: BUN and Creatinine are within reference range. SODIUM 137 135-146 mmol/L POTASSIUM 4.3 3.5-5.3 mmol/L CHLORIDE 105 98-110 mmol/L CARBON DIOXIDE 25 20-32 mmol/L CALCIUM 9.0 8.6-10.2 mg/dL PROTEIN, TOTAL 6.6 6.1-8.1 g/dL ALBUMIN 4.4 3.6-5.1 g/dL GLOBULIN 2.2 1.9-3.7 g/dL (calc) ALBUMIN/GLOBULIN RATIO 2.0 1.0-2.5 (calc) BILIRUBIN, TOTAL 2.3 0.2-1.2 mg/dL ALKALINE PHOSPHATASE 57 31-125 U/L AST 13 10-30 U/L ALT 7 6-29 U/L TRYPTASE Reviewed date:07/27/2024 08:14:31 AM Interpretation:Normal Performing Lab:[facility], [address] [address], [place], [address] Melvin Ricks M.D.,PhD Notes/Report: NON-FASTING; NON-FASTING; NON-FASTING TRYPTASE 3.7 <11.0 mcg/L The Tryptase test, fluorescent enzyme immunoassay (FEIA), measures both the Alpha and Beta forms of Tryptase. Measuring both forms of Tryptase increases sensitivity for the diagnosis of mastocytosis, and mast cell degranulation as a cause of anaphylaxis. CBC (INCLUDES DIFF/PLT) Reviewed date:07/27/2024 08:14:47 AM Interpretation:Abnormal Performing Lab:[facility], [address] [place], [address] Mainor Hidalgo MD Notes/Report: NON-FASTING; NON-FASTING; NON-FASTING WHITE BLOOD CELL COUNT 4.8 3.8-10.8 Thousand/ uL RED BLOOD CELL COUNT 4.40 3.80-5.10 Million/uL HEMOGLOBIN 12.5 11.7-15.5 g/dL HEMATOCRIT 39.2 35.0-45.0 % MCV 89.1 80.0-100.0 fL MCH 28.4 27.0-33.0 pg MCHC 31.9 32.0-36.0 g/dL For adults, a slight decrease in the calculated MCHC value (in the range of 30 to 32 g/dL) is most likely not clinically significant; however, it should be interpreted with caution in correlation with other red cell parameters and the patient's clinical condition. RDW 12.3 11.0-15.0 % PLATELET COUNT 284 140-400 Thousand/uL MPV 9.8 7.5-12.5 fL ABSOLUTE NEUTROPHILS 2736 5307-2610 cells/uL ABSOLUTE LYMPHOCYTES 6260 950-1052 cells/uL ABSOLUTE MONOCYTES 331 200-950 cells/uL ABSOLUTE EOSINOPHILS 149 15-500 cells/uL ABSOLUTE BASOPHILS 62 0-200 cells/uL NEUTROPHILS 57 LYMPHOCYTES 31.7 MONOCYTES 6.9 EOSINOPHILS 3.1 BASOPHILS 1.3 APOLONIA IFA SCREEN W/REFL TO TIT ER/PATTERN,IFA(REFL) Reviewed date:07/27/2024 08:14:15 AM Interpretation:Normal Performing Lab:[facility], [address] [place], [address] Mainor Hidalgo MD Notes/Report: NON-FASTING; NON-FASTING; NON-FASTING APOLONIA SCREEN, IFA NEGATIVE NEGATIVE APOLONIA IFA is a first line screen for detecting the presence of up to approximately 150 autoantibodies in various autoimmune diseases. A negative APOLONIA IFA result suggests an APOLONIA-associated autoimmune disease is not present at this time, but is not definitive. If there is high clinical suspicion for Sjogren's syndrome, testing for anti-SS-A/Ro antibody should be considered. Anti-Beckie-1 antibody should be considered for clinically suspected inflammatory myopathies. AC-0: Negative International Consensus on APOLONIA Patterns (https://doi.org/10.1515/cc ct-5953-4554) For additional information, please refer to http://education.[employer]/faq/HYQ729 (This link is being provided for informational/ educational purposes only.) MILK COMPONENT PANEL Reviewed date:07/27/2024 08:14:06 AM Interpretation:Abnormal Performing Lab:[facility], [address] [place], [address] Mainor Hidalgo MD Notes/Report: NON-FASTING; NON-FASTING; NON-FASTING ALPHA-LACTALBUMIN (F76) IGE 0.20 CLASS 0/1 BETA-LACTOGLOBULIN (F77) IGE 0.21 CLASS 0/1 CASEIN (F78) IGE 0.12 CLASS 0/1 Positive cow's milk component IgE [...] 8. Additional information can be found at [email or web address] ALPHA GAL PANEL Reviewed date:07/27/2024 08:15:05 AM Interpretation:Abnormal Performing Lab:[facility], [address] [place], [address] Mainor Hidalgo MD Notes/Report: NON-FASTING; NON-FASTING; NON-FASTING BEEF (F27) IGE 0.13 CLASS 0/1 MCCLAIN (F88) IGE <0.10 CLASS 0 PORK (F26) IGE <0.10 CLASS 0 GALACTOSE ALPHA 1,3 GALACTOSE IGE 0.17 <0.10 kU/L Results above 0.1 kU/L indicate an allergen-specific IgE sensitization to sltcchjot-m-6,3-galactose, and such patients are at risk for [...] method. Additional information can be found at [email or web address] COW'S MILK(F2) IGE W/REFL MT COMPONENT PANEL Reviewed date:07/27/2024 08:15:15 AM Interpretation:Abnormal Performing Lab:[place], [facility], [address] [place] [address], [address] Mainor Hidalgo MD Notes/Report: NON-FASTING; NON-FASTING; NON-FASTING COW'S MILK (F2) IGE 0.32 CLASS 0/1 Reason For Referral No Information Medications Medication SIG (Take, Route, Frequency, Duration) Notes Start Date End Date Status Auvi-Q 0.3 MG/0.3ML as directed Injectio n as needed; Duration: 30 days Not-Taking Fluticasone Propionate 50 MCG/ACT 2 sprays in each nostril Nasally Twice a day; Duration: 30 days Active Nasal Washes N/A as directed intranasally Active Auvi-Q 0.3 MG/0.3ML as directed Injectio n as needed; Duration: 30 days Active Cetirizine HCl 10 MG 1 tablet Orally twi ce a day; Duration: 30 days Active Social History Tobacco Use: Social History Observation Description Date Details (start date - stop date) Never Smoker NA - NA Tobacco Control (Standard) Question Answer Notes Tobacco use: Nonsmoker Problems Problem Type SNOMED Code ICD Code Onset Dates Problem Status W/U Status Risk Notes Problem Chronic allergic conjunctivitis (44473086) Other chronic allergic conjunctivitis (H10.45) Active confirmed Problem Allergic rhinitis caused by pollen (disorder) (32957735) Allergic rhinitis due to pollen (J30.1) Active confirmed Problem Allergic rhinitis (65088069) Other allergic rhinitis (J30.89) Active confirmed Problem Allergic rhinitis caused by animal hair and dander (927072086860542) Allergic rhinitis due to animal (cat) (dog) hair and dander (J30.81) Active confirmed Problem Allergy to penicillin (51051641) Allergy status to penicillin (Z88.0) Active confirmed Problem Allergy to meat (finding) (994588353) 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 20[address] [facility] [employer] [address] [address] 09/29/2023 Bautista Campbell Allergic rhinitis du e to pollen J30.1 ; Allergy to mammalian meats Z91.014 ; Allergic rhinitis due to animal (cat) (dog) hair and dander J30.81 ; Other allergic rhinitis J30.89 ; Other chronic allergic conjunctivitis H10.45 and Allergy status to penicillin Z88.[address] [facility] [address] [facility] [employer] [address] [address] 11/09/2023 Bautista Campbell Allergic rhinitis du e to pollen J30.1 ; Allergy to mammalian meats Z91.014 ; Allergic rhinitis due to animal (cat) (dog) hair and dander J30.81 ; Other allergic rhinitis J30.89 ; Other chronic allergic conjunctivitis H10.45 and Allergy status to penicillin Z88.[address] [facility] [address] [place] [address] 05/03/2024 Bautista Campbell Allergic rhinitis du e to pollen J30.1 ; Allergy to mammalian meats Z91.014 ; Allergic rhinitis due to animal (cat) (dog) hair and dander J30.81 ; Other allergic rhinitis J30.89 ; Other chronic allergic conjunctivitis H10.45 and Allergy status to penicillin Z88.[address] [facility] [address] [place] [address] 07/18/2024 Marleny Mendoza Allergy to mammalian meats Z91.014 ; Generalized abdominal pain R10.84 ; Allergic rhinitis due to pollen J30.1 ; Allergic rhinitis due to animal (cat) (dog) hair and dander J30.81 ; Other allergic rhinitis J30.89 ; Other chronic allergic conjunctivitis H10.45 ; Allergy status to penicillin Z88.0 and Elevated blood-pressure reading, without diagnosis of hypertension R03.[address] [facility] [address] [place] [address] 04/25/2024 Bautista Campbell Allergy to mammalian meats Z91.014 Assessments Encounter Date Diagnosis (ICD Code) Assessment [...] reviewed. Return in 6 months for E&M 04/25/2024 Allergy to mammalian meats (ICD-10 - Z91.014) 05/03/2024 Allergic rhinitis due to pollen (ICD-10 - [...] change medication regimen, improve allergy avoidance measures. 05/03/2024 Allergy to mammalian meats (ICD-10 - Z91.014) [...] for any other potential aspect to this. Given continued ithcing around face during episodes, plan to obtain a tryptase level during these episodes. Will plan ot increase Zyrtec to BID as she is unable to tolerate Pepcid. Keep f/u with GI. Keep AIE on hand at all times. FAP reviewed. 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 She reports occasional flat, red itchy spots that correlate on days of eating mammalian meats, but otherwise without other signs of systemic symptoms. Recent alpha-gal panel with PCP elevated at 0.4. 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 Today she reports abdominal symptoms even when neither dairy nor mammalian meat is consumed. Consider alpha gal syndrome vs idiopathic anaphylaxis vs other. Will order above lab orders for further evaluation. - As some of these episodes have occurred without accidental exposure to mammalian products, I have concerns that there is an additional cause to Nika's symptoms. Consider updated GI evaluation, will wait lab work-up.- Increase Zyrtec to 20 mg BID. Consider STAT tryptase level in the setting of symptoms to assess if symptoms are an allergic component vs other causes.- At this time, Nika is to continue strict avoidance of all mammalian meats and gelatin containing foods. Continue strict avoidance of dairy. - Nika is to carry an AIE at all times. Thorough education was provided again today on indications of use.- Instructed to strictly journal, take pictures and notify office if additional reactions occur. If symptoms occur outside the setting of meat, dairy or gelatin consumption, consider other causes.- Plan to repeat alpha gal panel, order sent.- Consider XOLAIR if symptoms persist.- Wear long-sleeve, pants, hats when outdoors with regular inspection for ticks after being outdoors.- Follow-up in 1-2 months for further evaluation and management 07/18/2024 Allergic rhinitis due to pollen (ICD-10 - J30.1) Nika clearly suffers from atopic disease based upon our skin testing and clinical history. Accordingly, we have encouraged her medication regimen, discussed nasal washes and allergy-specific [...] change medication regimen, improve allergy avoidance measures. - Follow-up as above 05/03/2024 Allergic rhinitis due to animal (cat) (dog) hair and dander (ICD-10 - J30.81) Follow allergen avoidance, meds and consider SCIT as an adjunctive treatment to current regimen 11/09/2023 Allergic rhinitis due to animal (cat) [...] as an adjunctive treatment to current regimen 05/03/2024 Other allergic rhinitis (ICD-10 - J30.89) Follow allergen avoidance, meds and consider SCIT as an adjunctive treatment to current regimen 07/18/2024 Allergic rhinitis due to animal (cat) (dog) hair and dander (ICD-10 - J30.81) Follow allergen avoidance, meds and consider SCIT as an adjunctive treatment to current regimen 09/29/2023 Other chronic allergic conjunctivitis (ICD-10 - H10.45) Given ocular signs and symptoms I encouraged allergy avoidance measures and meds as above. If symptoms persist, consider adding additional medications including intraocular antihistamine/mas t cell stabilizer, PRN and consider SCIT as an adjunctive measure 07/18/2024 Other allergic rhinitis (ICD-10 - J30.89) Follow allergen avoidance, meds and consider SCIT as an adjunctive treatment to current regimen 05/03/2024 Other chronic allergic conjunctivitis (ICD-10 - H10.45) Given ocular signs and symptoms I encouraged allergy avoidance measures and meds as above. If symptoms persist, consider adding additional medications including intraocular antihistamine/mas t cell stabilizer, PRN and consider SCIT as an adjunctive measure 11/09/2023 Other chronic allergic conjunctivitis (ICD-10 - H10.45) Given ocular signs and symptoms I encouraged allergy avoidance measures and meds as above. If symptoms persist, consider adding additional medications including intraocular antihistamine/mas t cell stabilizer, PRN and consider SCIT as an adjunctive measure 09/29/2023 Allergy status to penicillin (ICD-10 - Z88.0) Reports lips turning blue after taking PCN at 6 months old. Treated at [facility] but unsure of other details. She has avoided PCN. Would advise PCN. Otherwise continue absolute avoidance 11/09/2023 Allergy status to penicillin (ICD-10 - Z88.0) Reports lips turning blue after taking PCN at 6 months old. Treated at [facility] but unsure of other details. She has avoided PCN. Would advise PCN. Otherwise continue absolute avoidance 05/03/2024 Allergy status to penicillin (ICD-10 - Z88.0) Reports lips turning blue after taking PCN at 6 months old. Treated at [facility] but unsure of other details. She has avoided PCN. Would advise PCN. Otherwise continue absolute avoidance 07/18/2024 Other chronic allergic conjunctivitis (ICD-10 - H10.45) Given ocular signs and symptoms I encouraged allergy avoidance measures and meds as above. If symptoms persist, consider adding additional medications including intraocular antihistamine/mas t cell stabilizer, PRN and consider SCIT as an adjunctive measure 07/18/2024 Allergy status to penicillin (ICD-10 - Z88.0) Reports lips turning blue after taking PCN at 6 months old. Treated at [facility] but unsure of other details. She has avoided PCN. Would advise PCN. Otherwise continue absolute avoidance 07/18/2024 Elevated blood-pressure reading, without diagnosis of hypertension (ICD-10 - R03.0) BP elevated today without symptoms of urgency or emergency. Continue serial checks and follow-up with PCP Plan Of Treatment Pending Test Test Name Order Date TRYPTASE 05/03/2024 INTERPRETATION 07/18/2024 Next Appt Details Provider Name:Marleny Farris Dhruv chowdhury, 09/12/2024 03:30:00 PM, [address] [facility], [address], [place], [address], Insurance Providers Payer Name Payer Address Payer Phone Subscriber Number Group Number Insured Name Patient Relationship to Insured Coverage Start Date Coverage End Date [employer] POS II [address] [place] [address] [id number] Self - patient is the insured Medical (General) History Medical History History ICD Code Allergy to mammalian meats Z91.014 Allergic rhinitis due to pollen J30.1 Allergic rhinitis due to animal (cat) (d og) hair and dander J30.81 Other allergic rhinitis J30.89 Other chronic allergic conjunctivitis H1 0.45 Allergy status to penicillin Z88.0 Surgical History Surgery Date(Month/Year) Tonsillectomy 1992 adenoidectomy 1991,1997,2007 lymph node removal 2016 D & C 2019,2021,2022 tubal ligation 2023 2023 2023
--- OUTSIDE RECORDS SUMMARY | 2024-08-08 18:58 | XMS_ITS | Clinical Summary ---
Author Organization [facility] Address [address] [place] [address] Care Team Providers Care Radio Disc Jockey Name Role Phone Jimmie Adrian MD Primary Care Provider [phone] RobbyPradeep MD Unavailable [phone] Allergies Active Allergy Reactions Criticality Noted Date Comments 3 Alpha-Gal Dairy Intolerant (Zbtqrbawc-Muijg-1,3-Ga lactose) Nausea & Vomiting Low 04/05/2024 All [...] discharge 03/16/2022 Skin lesion of breast 03/16/2022 Encounters Date Type Department Care Team Description 08/08/2024 10:30 AM CDT Ancillary Procedure [facility] [address] [place] [address] Arrived 08/08/2024 10:00 AM CDT Office Visit [facility] [address] [place] [address] Lamin Oquendo MD Right hand pain (Primary Dx); Injury of right hand, initial encounter 08/01/2024 6:56 PM CDT - 08/01/2024 10:17 PM CDT Emergency [facility] Emergency Department [address] [place] [address] Closed avulsion fracture of middle phalanx of finger, initial encounter (Primary Dx) Discharge Disposition: Discharge to home or self care from Last 3 Months Immunizations Immunization Administration Dates Next Due Influenza, Quadrivalent, Spl it, Preservative Free, Intramuscular 02/23/2020 Influenza, Trivalent, IM (MDV) 12/09/2018 Tdap 02/23/2020,08/26/2017 Surgical History Surgery Date Site/Laterality Comments BREAST BIOPSY 04/10/2022 Right TONSILLECTOMY DILATION AND CURETTAGE OF UTERUS x 3 ADENOIDECTOMY Medical History Medical History Date Comments Breast mass in female Right. Constipation Ovarian cyst Molar history Miscarriage recurrent Pneumonia Irritable bowel syndrome Anemia Family History Medical History Relation Name Comments No Known Problems Mother Cancer Other 1 Reported Family History Of Cancer - PGM, maternal great grandmother, paternal uncle (Added by TW Conv) Ovarian cancer Other 2 Ovarian Cance r - maternal great grandmother (Added by TW Conv) Thyroid disease Other 3 Thyroid Diso rder - mother, PGM, paternal great grandmother (Added by TW Conv) Lung disease Other 4 Pulmonary Disea se - PGM, paternal great grandfather (Added by TW Conv) Obesity Other 5 Obesity - mater nal great aunt, paternal great grandmother (Added by TW Conv) Heart disease Other 6 Heart Disease - MGF (Added by TW Conv) Polycystic ovary syndrome Other 7 Po lycystic Ovarian Syndrome - sister (Added by TW Conv) Relation Name Status Comments Mother Other 1 Other 2 Other 3 Other 4 Other 5 Other 6 Other 7 Social History Tobacco Use Types Packs/Day Years Used Date Smoking Tobacco: Former Cigarettes 0.3 5 2 010 - 2015 Smokeless Tobacco: Never Tobacco Cessation:Counseling Given: Not [...] on file Sexual Orientation Not on file Obstetrics History Para Term AB IAB SAB Ectopic Multiple Livin g Live Births 2 0 0 0 1 0 1 0 0 0 0 Date Outcome GA Total Labor Labor/2nd/3rd Weight Sex Type Anes PTL Casi A1 A5 Name Clin SAB Last Filed Vital Signs Vital Sign Reading [...] 08/01/2024 6:48 PM CDT Plan of Treatment Health Maintenance Due Date Last Done Comments Cervical Cancer Screening 1989 Depression Screening 1989 Hepatitis C Screening 1989 Varicella Vaccines (1 of 2 - 13+ 2-dose series) 2002 Hepatitis B Screening 2007 Regular Well Visit/Exam 18-64 2007 Influenza Vaccine (Season Ended) 2024 02/23/2020, 12/09/2018 DTaP/Tdap/Td Vaccine (3 - Td or Tdap) 02/22/2030 02/23/2020, 08/26/2017 HPV Vaccines Aged Out No longer eligi ble based on patient's age to complete this topic Pneumococcal vaccine <65 Aged Out No longer eligible based on patient's age to complete this topic Medical Devices Implanted Type Area Media Marketing Specialist Device Identifier Shelf Expiration Date Model / Serial / Lot Bard Peripheral Vascular Ultraclip Bard 17ga 10cm 2 Trigger Permanent Ultrasound [id number] - [id number] Implanted:Qty: 1 on 04/10/2022 at [facility] [employer] [id number] / / Procedures Procedure Name Priority Date/Time [...] Jimmie Dorman M.D. MF: NICHOLE Report ID: [id number] Reading Location: [id number] Procedure Note Jimmie Dorman MD - 08/01/2024 [...] Jimmie Dorman M.D. MF: NICHOLE Report ID: [id number] Reading Location: [id number] Fan Malik INSIDE SALES CONSULTANT IMG XR PROCEDURES Final Res ult from Last 3 Months Insurance AETNA [facility] WORKERS COMPENSATION GENERIC Member Subscriber Plan / Payer (Ef fective 2024-Present) Name:Nika Pollock Relation to Subscriber:Self Name:Nika Pollock Payer ID:[id number] Group ID:Not on file Type:WORKERS COMPENSATION Address: [address] [place] [address] Care Teams Radio Disc Jockey Relationship Specialty Start Date End Date Jimmie Adrian MD PCP - General Family Medicine 04/11/19 Pradeep Gilbert MD [address] [place] [id number] Surgery 09/23/22
--- OUTSIDE RECORDS SUMMARY | 2024-08-08 18:58 | XMS_ITS | Clinical Summary ---
Author Organization [facility] Address [facility] [place] [address] Care Team Providers Care Bobbin Trucker Name Role Phone Jimmie Adrian MD Primary Care Provider [phone] Allergies Active Allergy Reactions Criticality Noted Date Comments Morphine Other (see comment),Unknown High 12/13/2014 shaking Doesn't remember Other reaction(s): Other - - Doesn't remember Nickel Hives 08/14/2017 Penicillins Anaphylaxis,Hives High 12/13/2014 Other reaction(s): Unknown - - Medications Vit-Fe Fumarate-FA (PX MULTIVITAMINS OR) Take 1 tablet by mouth daily. Active aspirin 81 MG tablet Take 81 mg by mouth daily. Active ferrous gluconate 324 (37.5 Fe) MG tablet Take 324 mg by mouth daily with breakfast. Active HYDROcodone-acetam inophen 5-325 MG tabletIndications: Acute Pain < 3 Day Supply Take 1 tablet by mouth every 4 (four) hours as needed. Indications : Acute Pain < 3 Day Supply 7 tablet 1 Active Active Problems Problem Noted Date Diagnosed Date ([facility]) 04/19/2020 Spontaneous vaginal delivery ([facility]) 8 Supervision of normal first in third trimester ([facility]) 08/28/2017 Labor and delivery indicatio n for care or intervention ([facility]) 08/27/2017 Family History Medical History Relation Comments Autoimmune Disease Mother Diabetes Mother borderline Sleep Apnea Sister 1 Other Sister 4 stillborn Relation Status Comments Brother Alive Father Alive Mother Alive Sister 1 Alive Sister 2 Alive Sister 3 Alive Sister 4 Son Alive Social History Tobacco Use Types Packs/Day Years [...] Sign Reading Time Taken Comments Blood Pressure 118/82 04/20/2020 8:50 AM [facility] Pulse 92 04/20/2020 8:50 AM [facility] Temperature 36.3 C (97.3 F) 04/20/2020 8:50 AM [facility] Respiratory Rate 16 04/20/2020 8:50 AM [facility] Oxygen Saturation 100% 04/20/2020 8:50 AM [facility] Inhaled Oxygen Concentration - - Weight 81.6 kg (180 lb) 04/19/2020 1:31 AM [facility] Height 152.4 cm (5') 04/19/2020 1:31 AM [facility] Body Mass Index 35.15 04/19/2020 1:31 AM [facility] Plan of Treatment Health Maintenance Due Date Last Done Comments Cervical Cancer Screening Pa p Smear (Age 30 to 64) Every 3 Years 1989 Annual Physical 01/18/1992 Hepatitis C 2007 Hepatitis B Vaccines (1 of 3 - 19+ 3-dose series) 01/18/2008 Cervical Cancer Screening Pa p with HPV Testing (Age 30 to 64) Every 5 Years 2019 Cervical Cancer Screening with HPV 2019 COVID-19 Vaccine (2023-2 5 season) 2023 DTaP, Tdap and Td Vaccines ( 2 - Td or Tdap) 08/27/2027 08/26/2017 HPV Vaccines Aged Out No longer eligi ble based on patient's age to complete this topic Meningococcal B Vaccine Aged Out No l onger eligible based on patient's age to complete this topic Meningococcal Vaccine Aged Out No [place] eligible based on patient's age to complete this topic Pneumococcal Vaccine: Pediat rics (0 to 5 Years) and At-Risk Patients (6 to 49 Years) Aged Out No longer eligi ble based on patient's age to complete this topic RSV Immunizations Under 20 Months Aged Out No longer eligible based on patient's age to complete this topic Insurance [employer] [facility] Advance Directives * Full Code (Latest Code Status on File) Date Activated Date Inactivated Comments 04/19/2020 1:53 AM 04/20/2020 2:32 PM * Full Code Date Activated Date Inactivated Comments 08/27/2017 9:17 PM 08/28/2017 1:13 AM Care Teams Bobbin Trucker Relationship Specialty Start Date End Date Jimmie Adrian MD PCP - General FAMILY PRACTICE 12/14/18
--- NOTE | 2024-08-08 19:02 | ED.ANIMALBIT ---
HPI - Animal Bite General Chief Complaint: Animal Bite Stated Complaint: Dog Bite/Left Side Time Seen by Provider: 08/08/24 19:07 Source: patient and RN notes reviewed Mode of arrival: ambulatory Limitations: no limitations History of Present Illness HPI narrative: 34-year-old female with history of alpha-gal syndrome presents concern for a dog bite. Reports her neighbor's dog bit her on the chest about 2.5 hours prior to arrival she reports the dog is up-to-date on his vaccines. She is up-to-date on her tetanus vaccination. She reports a puncture wound to her left chest MD complaint: animal bite Related Data Home Medications ?Medication ?Instructions ?Recorded ?Confirmed ?Last Taken ?Type epinephrine 0.3 mg/0.3 mL 01/21/24 Unknown History injection, auto-injector (Auvi-Q) etonogestrel 0.12 mg-ethinyl vag ring vaginal 01/21/24 Unknown History estradiol 0.015 mg/24 hr vaginal ring (NuvaRing) Allergies Allergy/AdvReac Type Severity Reaction Status Date / Time Alpha-Gal Allergy Severe Anaphylaxis Verified 08/08/24 19:12 ([id number]-3,3-Gala Penicillins Allergy Severe Anaphylactic Verified 01/21/24 10:01 Shock nickel Allergy Unknown Verified 01/21/24 10:01 morphine AdvReac Intermediate Chills Verified 01/21/24 10:01 mammal by products Allergy Severe Anaphylaxis Uncoded 01/21/24 10:26 Review of Systems Review of Systems: CONSTITUTIONAL: Denies malaise, chills, sweats, or fever. SKIN: Reports puncture wound to the left chest MUSCULOSKELETAL: Denies muscle skeletal pain NEUROLOGIC: Denies numbness, weakness All systems reviewed & are unremarkable except as noted in HPI and below PMFSH Past Medical History Medical History Alpha-gal syndrome Cyst, breast solitary outside of breast next to nipple Surgical History Surgical History History of lymph node excision History of nasal surgery Turbinectomy History of tonsillectomy and adenoidectomy History of dilatation and curettage Social History Social History Smoking status: Never smoker Alcohol intake: current Alcohol use details: rare social Substance use: never Substance use type: does not use Living arrangements: with family Gender identity (if verbalized by the patient): Female Comments At time of signature, agree with nursing past medical, surgical, social and family history. There is no relevant family history pertinent to the presenting complaint Exam Narrative: GENERAL: Well-appearing, well-nourished, and in no acute distress. HEAD: Normocephalic, atraumatic. EYES: PERRLA, conjunctivae clear, and EOMI. ENT: Mucous membranes moist. NECK: Supple. No lymphadenopathy CHEST: Clear to auscultation. No respiratory distress. HEART: Regular rate and rhythm. SKIN: Warm, dry. Single puncture wound noted to the left chest near the axilla without surrounding erythema, edema, induration. No drainage NEURO: Alert and oriented x3. PSYCH: Normal mood and affect Course Course Emergency Course: Patient is aware of diagnosis, understands and agrees to treatment plan. Anticipatory guidance given. Patient agrees to follow-up as directed and is aware of reasons to seek care at the emergency department. Portions of this record may have been created with voice recognition software Level of Care: Express Care Visit Vital Signs Vital signs: Reviewed. MDM - Animal Bite MDM Narrative Medical decision making narrative: I evaluated this patient in the express care. History is obtained from patient who is an independent historian and physical exam was performed.? Available medical records were reviewed. ? Exam findings show no acute concerns or changes; patient is non-toxic appearing and is in no distress. ? Differential diagnosis and treatment plan were discussed with the patient. Patient agrees with discussion and after shared medical decision making agrees with plan of care. All questions were answered to the patient's satisfaction. Patient is appropriate for outpatient treatment and follow-up. Critical Care Time Critical Care Time Critical Care Time: No Discharge Plan Discharge Clinical Impression: Bite by animal Patient Disposition: Home Condition: Stable Instructions: Antibiotic Form, Animal Bite (ED) Additional Instructions: Please follow up with your Primary Care Doctor within 48-72 hours - call for an appointment. Rest and elevate affected area; apply moist heat 3-4 times daily for 10-15 minutes. Take Motrin 600mg every 8 hours with food for pain. Please take Antibiotics as directed. If you experience any worsening redness, swelling, streaking (red lines), fever or chills please go to the ER Patient Language: Cymraes Prescriptions: New metronidazole 500 mg tablet 500 mg PO BID 7 Days Qty: 4 0RF sulfamethoxazole-trimethoprim 800-160 mg tablet 1 tablet PO Q12H 7 Days Qty: 14 0RF No Action epinephrine [Auvi-Q] 0.3 mg/0.3 mL auto-injector etonogestrel-ethinyl estradiol [NuvaRing] 0.12-0.015 mg/24 hr ring VAGINAL Follow-up/Referrals: Nguyễn,Jimmie Queen MD [Primary Care Provider] - Time of Disposition: 19:18
[2024-08-08 19:04] VITALS: BP 125/85; PULSE 85; RESP 16; TEMP 36.7; O2SAT 100
== END 2024-08-08 19:23 | disposition home or self-care (01) ==
PROVIDERS: Emergency Provider Nurse Practitioner; PCP Internal Medicine
DX: S21.159A Open bite of unspecified front wall of thorax without penetration into thoracic cavity, initial encounter (principal); W54.0XXA Bitten by dog, initial encounter
CPT/HCPCS: 99213; G0463